=== PATIENT | female | born 1945 | race Caucasian/White ===

== ENCOUNTER → 2019-11-12 09:01 | Outpatient (CLI) | payer OTHER, SELFPAY ==
--- NOTE | ~2019-11-12 | US_ITS ---
EXAMINATION: US transvaginal DATE: 11/12/2019 09:51 INDICATION: Postmenopausal bleeding. Spotting. Comparison:No prior studies for comparison TECHNIQUE: Multiple endovaginal sonographic images of the pelvis performed. FINDINGS: The uterus measures 7.6 x 3 x 3.6 cm. The endometrial complex measures 4 mm. There are subt le calcifications along the cervix, nonspecific. The ovaries are not visualized. There is no free fluid in the pelvis. There are no abnormal masses seen on either side. IMPRESSION: 1. Endometrium is mildly thickened measuring 4 mm, abnormal in postmenopausal female. Nonspecific cer vical calcifications are noted. Recommend clinical correlation. Reviewed, dictated and finalized at location A. IMPRESSION: 1. Endometrium is mildly thickened measuring 4 mm, abnormal in postmenopausal f emale. Nonspecific cervical calcifications are noted. Recommend clinical correl ation.
== END ==
PROVIDERS: PCP Registered Nurse; Visit Provider Registered Nurse
DX: N95.0 Postmenopausal bleeding (principal)
CPT/HCPCS: 76830

== ENCOUNTER 2019-11-12 10:00 | Outpatient (RCR) | payer OTHER, SELFPAY ==
--- NOTE | 2019-10-08 10:27 | PTOPEVAL ---
PHYSICAL THERAPY EVALUATION AND PLAN OF CARE 10-08-2019 The PT evaluation was completed for the diagnosis of B LE lymphedema. Treatment is scheduled for 3x/week for 4 weeks. Thank you for referring Mrs. Wetzel to [facility] [place]. Please review, sign, date and return this plan of care ANNETTE. I agree with and certify that the following plan of care is medically necessary. Referring Physician Date Attending Provider: Albino Hardin MD *PT Outpatient Evaluation Start: 10/08/19 09:08 Document 10/08/19 09:00 ADEOLA (Rec: 10/08/19 10:27 ADEOLA [id number]) Therapy Assessment Status Assessment Status Assessment Status Evaluation Outpatient Past Medical History Neurological History Hx Neurological Disorders No Significant History Cardiovascular History Hx Atrial Fibrillation Yes: meds Hx Cardiac Catheterization Yes: recent cath Respiratory History Hx Sleep Apnea Yes: CPAP for sleeping Hx Other Respiratory Disorders Yes: SOB-with exertion Gastrointestinal History Hx Gastrointestinal Disorders No Significant History Genitourinary History Hx Genitourinary Disorders No Significant History Musculoskeletal History Hx Rheumatoid Arthritis Yes: 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;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 Hx Other Musculoskeletal Disorders Yes: B carpal tunnel surgery; obesity~330#,wt varies;30# incr past yr Hematological History Hx Hematological Disorders No Significant History Endocrine History Hx Endocrine Disorders No Significant History HEENT History Hx HEENT Disorders No Significant History Integumentary History Hx Skin Disorders No Significant History Reproductive History Hx Other Reproductive Disorders Yes: D & C Other History Hx Other Medical Conditions Yes: infected sweat glands- bottom feet,saw foot dr- treated last wk Evaluation Information Problem Diagnosis lymphedema B LE's Onset Jun 2019 Prior Level of Function Activity Level (Last 3 Months) Occupation retired Activity of Daily Living Ability Independent Indoor/Home Mobility Independent Community Mobility Independent Stairs Ability Independent Functional Cognition (Planning, Shopping Independent , Taking Medications) Cooking Yes Cleaning Yes Laundry Yes Shopping Yes Driving Yes Home Setting Home Type House Living Situation Alone Mobility Assistive Devices (Used Last 3 None,Cane Months) Comments Additional Prior Level of Function pt does drive and does
--- NOTE | 2019-10-13 10:59 | PCPTNOTE ---
Pt called left message to return call. Returned call, pt stated she is going to the pediatrist on and will need both feet unwrapped at the appt. Pt's appt was cancelled today and will start either Sunday or Sunday with wrapping depending on whether she can move her appt at the pediatrist to Sunday or early Sunday. Pt will call back and let us know.
--- NOTE | 2019-10-20 09:46 | PCPTNOTE ---
Malu explained today that she has has intermittent shooting pain in the bottom of the left foot since having a procedure at the rv technician last week. Pt called and made an appointment with rv technician at 10:50 today which would be during her treatment. Pt wanted to know if she should wait to have therapy so dr could look at her foot. Pt thinks she should have an x-ray. Explained that she would have to discuss the pain with her dr and we will hold of wrapping her right leg until she she him today. Pt has difficulty breathing and walking. I did not want to add an additional burden to her balance since wrapping her right leg would put more pressure on the left leg when walking. Pt brought in her old wraps and we went through and discussed what she needed to bring back with her at her next visit. Pt asked if she could keep her old wraps here and explained we do not have to storage capacity to do this. Walked Malu up to the front of the lobby caring her box of supples, at which time, the hospital volunteer had her help her out to her car with the supplies. Malu was instructed to call us and let us know what the doctors finding were.
--- NOTE | 2019-10-24 08:56 | PCPTNOTE ---
pt called and canceled today's appt; I called her, she stated having pain in her foot, has called foot dr and getting pain meds. Stated she has bone spurs. She stated she will hope to be here next week.
--- NOTE | 2019-10-29 09:56 | PCPTNOTE ---
Patient called & cancelled scheduled appointment this date due to [ weather]
--- NOTE | 2019-11-07 10:16 | PTOPEVAL ---
PHYSICAL THERAPY RE-EVALUATION AND UPDATED PLAN OF CARE 11-07-2019 Mrs. Wetzel has received 6 Physical Therapy sessions, from September 19 to today, for the diagnosis of B LE lymphedema. She called/canceled 7 appointments due to issues with her feet--under the care of therapy aide due to sweat glands infected on the bottom of her feet--pain and open areas of R foot. Her treatment has included multi layer compression wrap to R lower leg, manual lymph drainage, intermittent compression pump and exercises to LE's. Recommendations for compression garments and education for lymphedema care were also provided to pt. Compared to the initial evaluation: circumferential measurement of both legs have increased, R LE by 7.4 cm and L by 3.7 cm. Both legs continue to have redness and fibrotic tissue over lower legs and medial thighs. The compression wrap has decreased the lower leg size on the R, but pushed the lymph fluid to her knee and thigh. She continues to have decreased strength, transfer skill, knee ROM and gait ability due to the size of her legs. She has been issued information on compression garments for knees and thighs. Leigha is balking at them, for the cost, bulkiness and having to mess with the things. Education has been provided on the importance of compression, need for garment over knee and thigh, not just lower leg. Also for her to continue to do her self massage at home and using her home compression pump over the leg that does not have the wrap on it. PT is to continue 3x/week for 4 more weeks, to December 04, then reassess her status. Thank you for referring Mrs. Wetzel to [facility] [place]. Please review, sign, date and return this plan of care ANNETTE. I agree with and certify that the following plan of care is medically necessary. Referring Physician Date Attending Provider: Albino Hardin MD *PT Outpatient Re-Evaluation Document 11/07/19 09:00 ADEOLA (Rec: 11/07/19 10:00 ADEOLA [id number]) Pain Assessment Timing of Pain Assessment Timing of Pain Assessment Assessment Pain Scale Pain Scale Used Numeric (1 - 10) Self Report Pain Assessment Bilateral Leg(s) Reported Pain Level 6 Pain Description Sharp,Stabbing,Tender on Palpation,Tightness Radicular Pain Location bottom of feet- infected sweat glands , L foot more pain than R foot Pain Frequency Chronic Current Pain Intensity 6 Additional Pain Comments B legs heavy, swollen and problems moving them Pain Score Pain Score 6: Self Report Lower Extremity Range of Motion General Lower Extremity Range of Motion Gross Lower Extremity Range of Motion B knee flexion 90'/ ext 0'; Comments labored with moving legs Lower Extremity Muscle Strength Testing General Lower Extremity Strength Gross Lower Extremity Strength difficulty, labored and increased time with walking using cane, transfer supine/ sit; SOB with walking and transfers/ exertion; Lymphedema Evaluation Skin Inspectio
--- NOTE | 2019-11-14 11:07 | PCPTNOTE ---
PHYSICAL THERAPY UPDATE/ HOLD THERAPY 11-14-2019 Attending Provider: Marisela Alan NP Patient:Leigha Wetzel Date of :1945 Mrs. Wetzel has received a total of 9 Physical Therapy treatment sessions, from October 27 to today, for B LE lymphedema. She has received manual lymph drainage, intermittent compression pump, multi layer compression wraps to the R leg and education for lymphedema care. The circumferential measurements of her R leg, which the wraps have been initiated on, has increased in size from the first measurement to today by 45 cm. The expectation of our lymphedema care, is for the leg to decrease in circumference with each measurement, which has not occured. This was discussed with Leigha. We will hold her PT treatments until she follows up with an assessment from you. She also stated she has a compliance manager appointment November 25. After your evaluation of her, if PT is to continue for lymphedema care, please give her a new script. Thank you for referring Mrs. Wetzel to [facility]. Please review, sign, date and return this update/HOLD of PT services, ANNETTE. I have been updated about the patient's current status and I agree with holding services at this time. Referring Physician Date
--- NOTE | 2019-11-19 07:50 | PCPTNOTE ---
Pt Devora called pt to see if she had gotten to see the dr. lorenzo . Pt stated she had not and was going on Sunday. cancelled todays and Sunday's appt.
--- NOTE | 2019-12-09 11:46 | PCPTNOTE ---
PHYSICAL THERAPY DISCHARGE 12-09-2019 Attending Provider: Marisela Alan NP Patient:Leigha Wetzel Date of :1945 Mrs. Wetzel has not returned for any further treatments since 11/12/2019, therefore she will be discharged at this time. Her initial visit was on 10/08/2019 09:00 and she had a total of 9 visits. Refer to the progress report dated 11-14-19 for her status at the last session. The goals were not met. Thank you for referring Leigha to [facility]. Please review, sign, date and return this discharge summary ANNETTE. I have been updated about the patient's current status and I agree with discharge from the above service at this time. Referring Physician Date
== END 2019-12-23 09:35 | disposition home or self-care (01) ==
LOC: ANHPT 10:00
PROVIDERS: PCP Registered Nurse; Visit Provider Registered Nurse
DX: I89.0 Lymphedema, not elsewhere classified (principal)
CPT/HCPCS: 29581; 97110; 97140; 97162

== ENCOUNTER 2020-03-01 09:00 | Outpatient (RCR) | payer OTHER, SELFPAY ==
--- NOTE | 2020-03-01 10:24 | PTOPEVAL ---
PHYSICAL THERAPY EVALUATION AND PLAN OF TREATMENTS 03-01-2020 The PT evaluation was completed for the diagnosis of B LE lymphedema. Her plan of treatment is scheduled for 0-3x/week for 6 weeks; treatment will increase to 3x/week when she has obtained her compression reduction garments. Thank you for referring Leigha Wetzel to [facility]. Please review, sign, date and return this plan of care ANNETTE. I agree with and certify that the following plan of care is medically necessary. Referring Physician Date Attending Provider: KENYA WelchPT Outpatient Evaluation Start: 03/01/20 09:12 Document 03/01/20 09:10 ADEOLA (Rec: 03/01/20 10:24 ADEOLA [id number]) Therapy Assessment Status Assessment Status Assessment Status Evaluation Outpatient Past Medical History Past Medical History Source of Past Medical History Patient Neurological History Hx Neurological Disorders No Significant History Cardiovascular History Hx Atrial Fibrillation Yes: meds Hx Cardiac Catheterization Yes Hx Other Cardiac Disorders Yes: to have ECHO and cardologist March 12 appt Respiratory History Hx Sleep Apnea Yes: CPAP for sleeping Hx Other Respiratory Disorders Yes: SOB-with exertion; lung vessels enlarged Gastrointestinal History Hx Gastrointestinal Disorders No Significant History Genitourinary History Hx Genitourinary Disorders No Significant History Musculoskeletal History Hx Rheumatoid Arthritis Yes: 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;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 Hx Other Musculoskeletal Disorders Yes: B carpal tunnel surgery; obesity; Hematological History Hx Hematological Disorders No Significant History Endocrine History Hx Endocrine Disorders No Significant History HEENT History Hx HEENT Disorders No Significant History Integumentary History Hx Skin Disorders No Significant History Reproductive History Hx Other Reproductive Disorders Yes: D & C Other History Hx Other Medical Conditions Yes: infected sweat glands- bottom feet,see foot dr today Evaluation Information Problem Diagnosis lymphedema B LE's Onset Jun 2019 Prior Level of Function Activity Level (Last 3 Months) Occupation retired Activity of Daily Living Ability Independent Indoor/Home Mobility Independent Community Mobility Independent Stairs Ability Independent Functional Cognition (Planning, Shopping Independent , Taking Medications) Cooking Yes Cleaning Yes Laundry Yes Shopping Yes Driving Yes Home Setting Home Type
--- NOTE | 2020-03-01 16:07 | PCPTNOTE ---
pt called this afternoon and stated foot cut her sweat glands and wrapped her foot and has to keep wrapped for the next 2 weeks.
--- NOTE | 2020-04-19 13:06 | PCPTNOTE ---
pt called and canceled today's reevaluation appt
--- NOTE | 2020-04-30 09:30 | PCPTNOTE ---
PHYSICAL THERAPY DISCHARGE 04-30-2020 Attending Provider: Marisela Alan NP Patient:Leigha Wetzel Date of :1945 Mrs. Wetzel has not returned for any further treatments since the inital evaluation on 03/01/2020, Shortly after the evaluation, she was admitted to the hospital. Therefore, she will be discharged at this time. Thank you for referring Leigha to [facility]. Please review, sign, date and return this discharge summary ANNETTE. I have been updated about the patient's current status and I agree with discharge from the above service at this time. Referring Physician Date
== END 2020-04-30 11:33 | disposition home or self-care (01) ==
LOC: ANHPT 09:00
PROVIDERS: Visit Provider Registered Nurse
DX: I89.0 Lymphedema, not elsewhere classified (principal)
CPT/HCPCS: 97161

== ENCOUNTER 2020-03-12 11:32 | Outpatient (CLI) | payer OTHER, SELFPAY ==
--- NOTE | 2020-03-12 | ECG_ITS ---
Measurements Intervals [place] Rate: 74 P: [place]: 0 QRS: -10 QRSD: 105 T: 51 QT: 391 QTc: 436 Interpretive Statements ATRIAL FIBRILLATION INCOMPLETE RIGHT BUNDLE BRANCH BLOCK ABNORMAL ECG Electronically Signed On 03-12-2020 12:57:35 CDT by Rian Soliz D.O.
--- NOTE | 2020-03-12 | ECHO_ITS ---
Patient Info Name: Leigha Wetzel Age: 74 years : 1945 Gender: Female Ht: 66 in Wt: 340 lbs BSA: 2.78 m2 HR: 72 bpm BP: 130 / 72 mmHg Heart Rhythm: Atrial Fibrillation Technical Quality: Fair Exam Date: 03/12/2020 2:25 PM Exam Location: [facility] Card Pulmonary Patient Status: Outpatient Admit Date: 03/12/2020 Staff Ordering Physician: Dayanna, Marisela ZAMBRANO Gas Regulator Repairer: Gissel Lria RDCS Attending Provider: MorganMarisela NP Exam Type: CA echo doppler color flow Study Info Indications I48.20 - CHRONIC ATRIAL FIBRILLATION R60.0 - Localized edema Complete two-dimensional, color flow and Doppler transthoracic echocardiogram is performed. Summary 1. There is moderate concentric increased left ventricular wall thickness. 2. Left ventricular systolic function is normal, estimated at 55-60%. 3. Severe biatrial dilation. 4. Atrial fibrillation. 5. At least moderate pulmonary hypertension. 6. There is severe aortic valve stenosis with a peak velocity of 413 cm/s, mean gradient of 30 mmHg, and aortic valve area of 0.8 cm2. Left Ventricle Left ventricular chamber dimension is mildly enlarged. Left ventricular systolic function is normal, estimated at 55-60%. There is moderate concentric increased left ventricular wall thickness. Right Ventricle Right ventricular chamber dimension is normal. Left Atria Left atrial chamber dimension is moderately enlarged. Right Atria Right atrial chamber dimension is severely enlarged. Aortic Valve The aortic valve is trileaflet. There is severe aortic valve sclerosis. There is severe aortic valve stenosis with a peak velocity of 413 cm/s, mean gradient of 30 mmHg, and aortic valve area of 0.8 cm2. There is no aortic valve regurgitation. Pulmonic Valve The pulmonic valve is not well visualized. Mitral Valve The mitral valve has normal leaflets. There is trace mitral valve regurgitation. There is mild mitral valve calcification. Tricuspid Valve The tricuspid valve leaflets are normal. There is mild tricuspid valve regurgitation. Pericardium/Pleural The pericardium appears normal. Aorta The aortic root size at the sinus of Valsalva is normal. Left Ventricular Outflow Tract Name Value Normal LVOT 2D LVOT Diameter 2.1 cm LVOT Doppler LVOT Peak Gradient 5 mmHg LVOT Mean Gradient 3 mmHg LVOT VTI 27 cm LVOT VTI/AV VTI Ratio 0.3 LVOT Stroke Volume 96 ml LVOT CO 18.2 l/min LVOT CI 6.5 l/min/m2 Pulmonic Valve Name Value Normal PV Doppler PV Peak Gradient 3 mmHg Mitral Valve Name
== END 2020-03-12 11:33 | disposition home or self-care (01) ==
PROVIDERS: Visit Provider Registered Nurse
DX: R60.0 Localized edema (principal); I48.20 Chronic atrial fibrillation, unspecified
CPT/HCPCS: 93005; 93306

== ENCOUNTER 2020-04-16 11:15 | Inpatient (IN) | payer OTHER, SELFPAY ==
[2020-04-16] VITALS (19 sets, daily range): BP systolic 99–120; BP diastolic 52–74; PULSE 73–103; RESP 20–28; TEMP 36.6–37.5; O2SAT 89–100; BMI 56.2
--- NOTE | ~2020-04-16 | CT_ITS ---
EXAMINATION: CT foot RT wo con DATE: 04/21/2020 18:57 INDICATION: Lateral right foot pain. TECHNIQUE: High resolution computed tomography (CT) of the right foot was performed without intraveno us contrast. Additional sagittal and coronal reconstructions were performed. Automated exposure contr ol and iterative reconstruction technique were employed. The dose-length product was 485.57 mGy-cm. COMPARISON: Right foot radiographs dated 04/21/2020 FINDINGS: Again seen are clustered toes. Alignment is otherwise normal. No fracture. Polyarticular osteoarthrit is, moderate at the subtalar and talonavicular joints and mild at the remaining joints in the right f oot and ankle. Heterotopic ossicles along distal margins of the medial and lateral malleoli likely se quela of chronic ankle sprains. Marked diffuse soft tissue swelling with subcutaneous edema throughou t the right foot exiting cephalad about the distal right lower leg. Postoperative changes with multip le surgical clips along the medial side of the distal right calf. There are also multiple vascular ca lcifications in the distal calf. No joint effusion or other abnormal loculated fluid collections. Mod erate fatty atrophy throughout the intrinsic musculature of the foot. Moderate Achilles and plantar c alcaneal spurs. IMPRESSION: 1. Mild to moderate polyarticular osteoarthritis at the right foot and ankle. No acute osseous abnorm ality. 2. Soft tissue swelling with prominent nonspecific subcutaneous edema throughout the right foot and d istal lower leg. Reviewed, dictated and finalized at location A. IMPRESSION: 1. Mild to moderate polyarticular osteoarthritis at the right foot and ankle. N o acute osseous abnormality. 2. Soft tissue swelling with prominent nonspecific subcutaneous edema throughou t the right foot and distal lower leg.
--- NOTE | ~2020-04-16 | XR_ITS ---
EXAMINATION: XR foot RT 2V DATE: 04/16/2020 12:12 INDICATION: Right foot pain and swelling. TECHNIQUE: 2 views of right foot were obtained. COMPARISON: None. FINDINGS: There is dorsiflexion of the metatarsophalangeal joints and flexion of the interphalangeal joints, which decreases sensitivity. Osteopenia is noted. No fracture. There is moderate osteoarthrit is of talonavicular joint. There is mild to moderate osteoarthritis of many of the interphalangeal lico ints. There is an enthesophyte at plantar aspect of calcaneal tuberosity. There are surgical clips in the lower leg. IMPRESSION: 1. Polyarticular osteoarthritis. Reviewed, dictated and finalized at location B.
--- NOTE | ~2020-04-16 | XR_ITS ---
EXAMINATION: XR foot RT 2V EXAM DATE: 04/21/2020 15:28 INDICATION: Initial encounter following injury, with pain of the right foot. TECHNIQUE: Right foot dorsoplantar, lateral projections obtained and reviewed. Comparison is made to prior examination from 04/16/2020. FINDINGS: Right metatarsal bones unremarkable. Bones are osteopenic. Please note that osteopenia l imits sensitivity for detecting fractures by radiographs. There are no acute fractures or dislocation s identified. There is no subcutaneous gas. There is soft tissue swelling over the entire foot and a nkle. There are no radiopaque foreign bodies. Moderate hindfoot primary osteoarthritis. Small calc aneal spurs. There is no significant interval change. IMPRESSION: Chronic findings as above. Reviewed, dictated and finalized at location B. IMPRESSION: Chronic findings as above.
--- NOTE | ~2020-04-16 | XR_ITS ---
XR chest 1V portable DATE: 04/16/2020 12:11 INDICATION: Shortness of breath TECHNIQUE: Portable upright AP chest on 04/16/2020 at 1200 hours COMPARISON: 01/02/2019 CT chest high resolution scan FINDINGS: There is cardiomegaly. There is pulmonary vascular congestion and redistribution. There is mild prominence of the minor fissure. The findings are consistent with congestive heart failure. Diffuse osteopenia. IMPRESSION: Cardiomegaly, congestive heart failure Reviewed, dictated and finalized at location A.
--- NOTE | 2020-04-16 11:20 | ECG_ITS ---
Measurements Intervals [place] Rate: 100 P: [place]: 0 QRS: -40 QRSD: 101 T: 34 QT: 347 QTc: 449 Interpretive Statements ATRIAL FIBRILLATION WITH RAPID VENTRICULAR RESPONSE LEFT AXIS DEVIATION INCOMPLETE RIGHT BUNDLE BRANCH BLOCK BASELINE ARTIFACT- I, III, AVR, AVL, AVF ABNORMAL ECG Electronically Signed On 04-16-2020 11:29:36 CDT by Rian Soliz D.O.
[2020-04-16 11:33] LABS: Basophils Absolute Auto 0.1 K/mm3 (0.0-0.1); Basophils Percent Auto 0.3 % (0.2-1.2); Eosinophils Absolute Auto 0.1 K/mm3 (0-0.3); Eosinophils Percent Auto 0.3 % (0-4.4); Hematocrit 23.2 % (37.0-47.0); Immature Granulocyte Absolute 0.67 K/mm3 (0.00-0.031); Immature Granulocyte Percent A 2.6 % (0-0.5); Lymphocytes Absolute Auto 0.36 K/mm3 (0.9-3.2); Lymphocytes Percent Auto 1.4 % (18.3-44.2); Mean Corpuscular HGB Conc 29.7 g/dl (32-36); Mean Corpuscular Hemoglobin 20.9 pg (26-34); Mean Corpuscular Volume 70.3 fl (80-100); Monocytes Absolute Auto 1.1 K/mm3 (0.1-0.6); Monocytes Percent Auto 4.4 % (2.6-8.5); Neutrophils Absolute Auto 23.6 K/mm3 (1.3-6.7); Platelet Count Result 240 k/mm3 (150-375); Red Cell Distribution Width 17.7 % (11.5-14.5); White Blood Count 25.9 K/mm3 (4.5-10.0)
--- NOTE | 2020-04-16 11:45 | PC.NURSE ---
PT NOTED TO BE 88-90% O2 ON RA, PLACED ON 2L VIA NC FOR O2 SATURATION. ERP AWARE.
[2020-04-16 11:46] LABS: Anion Gap 8 mmol/L (8-16); Blood Urea Nitrogen 33 mg/dL (7-17); Calcium 8.5 mg/dL (8.4-10.2); Carbon Dioxide 22 mmol/L (22-30); Chloride 105 mmol/L (98-107); Estimated CRCL calculation 63 ml/min; Estimated Glomerular Filt Rate 49; Glucose 128 mg/dL (65-105); Potassium 4.2 mmol/L (3.4-5.0); Sodium 135 mmol/L (137-145)
[2020-04-16 11:50] LABS: Hemoglobin 6.9 g/dL (12.0-15.0)
[2020-04-16 11:51] LABS: Anisocytosis 1+ (NORMAL); Hypochromasia 2+ (NORMAL); Platelet Estimate Adequate (Adequate)
--- NOTE | 2020-04-16 12:21 | ED.SOB ---
HPI - SOB/Dyspnea General Chief Complaint: Shortness of Breath/Dyspnea Stated Complaint: SOB Time Seen by Provider: 04/16/20 11:46 History of Present Illness HPI Narrative: Patient presents via EMS for shortness of breath. She is accompanied by her daughter. She lives alone. 2 days ago her daughter came and found her laying on the floor. They called for a fall assist. Had been on the floor since about midnight. She has about a 30 pound weight gain with her lymphedema. She has right foot pain and swelling without known injury. She has a chronic cough, with clear sputum. She has had no fever chills or sweats. She has chronic A. fib and Dr. Anthony is her electro mechanical technician. She has compression stockings for her lymphedema. MD elicited complaint: shortness of breath and cough Pertinent past history: congestive heart failure and other (Pulmonary hypertension, aortic stenosis) Onset (ago): day(s) Timing: constant Severity: severe Exacerbating factors: exertion Relieving factors: nothing Known history of: congestive heart failure and recurrent pneumonia Associated symptoms: cough and sputum production Treatment prior to arrival: oxygen Related Data Home oxygen amount: none Home Medications Medication Instructions Recorded Confirmed albuterol sulfate 90 mcg/actuation 2 puff INHALATION Q4H PRN gm 08/12/19 02/18/20 aerosol inhaler alpha lipoic acid 300 mg capsule 300 mg PO DAILY 08/12/19 02/18/20 aspirin 81 mg tablet,delayed 81 mg PO DAILY 08/12/19 02/18/20 release calcium carbonate 500 mg calcium 500 mg PO DAILY 08/12/19 02/18/20 (1,250 mg) tablet cholecalciferol (vitamin D3) 50 2,000 unit PO DAILY 08/12/19 02/18/20 mcg (2,000 unit) tablet coenzyme Q10 400 mg capsule 400 mg PO DAILY 08/12/19 02/18/20 cyanocobalamin (vitamin B-12) 500 500 mcg PO DAILY 08/12/19 02/18/20 mcg tablet meloxicam 7.5 mg tablet 7.5 mg PO DAILY 08/12/19 02/18/20 metoprolol tartrate 25 mg tablet 25 mg PO BID tablet 08/12/19 02/18/20 oxybutynin chloride 10 mg 10 mg PO DAILY 12/10/19 06/17/20 tablet,extended release 24 hr warfarin 2 mg tablet See Rx Instructions PO DAILY 08/12/19 02/18/20 budesonide-formoterol HFA 160 2 puff INHALATION Q12H 02/18/20 02/18/20 mcg-4.5 mcg/actuation aerosol inhaler Allergies Allergy/AdvReac Type Severity Reaction Status Date / Time hydromorphone Allergy Unknown Unknown Verified 04/16/20 11:23 meperidine Allergy Unknown DIZZINESS, Verified 04/16/20 11:23 N/V Review of Systems Review of Systems: Narrative: CONSTITUTIONAL: Denies fever, chills, or sweats. EYES: Denies visual changes, redness, or discharge. ENT: Denies rhinorrhea, congestion, sore throat, or otalgia. CARDIOVASCULAR: Denies chest pain, palpitations, or edema. RESPIRATORY: She has cough and dyspnea. GASTROINTESTINAL: Denies abdominal pain, nausea, vomiting, or diarrhea. GENITOURINARY: Denies dysuria or hematuria. SKIN: Denies rash or itching. MUSCULOSKELETAL: Denies back pain, but has severe right foot pain and swelling and redness. NEUROLOGIC: Denies headache, numbness, or weakness. . All systems reviewed & are unremarkable except as noted in HPI and below PMFSH Past Medical History Medical History A-fib JAQUELINE positive (~2018) Aortic stenosis Arthritis DISH (diffuse idiopathic skeletal hyperostosis) Lymphedema NSIP (nonspecific interstitial pneumonia) Pulmonary hypertension Surgical History Surgical History H/O hand surgery H/O wrist surgery Social History Social History Smoking status: Never smoker Second hand tobacco smoke exposure: No Alcohol intake: never Substance use: never Substance use type: does not use Spiritual care concerns: No Exam Narrative: Exam Narrative: GENERAL: Morbid obesity and huge lymphedema, pale, coughing HEAD: Normocephalic
[2020-04-16 12:33] LABS: Alanine Aminotransferase 39 U/L (4-35); Albumin Level 3.5 g/dL (3.5-5.1); Alkaline Phosphatase 73 U/L (38-126); Anion Gap 8 mmol/L (8-16); Aspartate Amino Transferase 88 U/L (14-36); Bilirubin,Total 0.6 mg/dL (0.2-1.3); Blood Urea Nitrogen 34 mg/dL (7-17); Calcium 8.5 mg/dL (8.4-10.2); Carbon Dioxide 22 mmol/L (22-30); Chloride 104 mmol/L (98-107); Creatine Kinase 1560 U/L (30-135); Estimated CRCL calculation 69 ml/min; Estimated Glomerular Filt Rate 54; Glucose 131 mg/dL (65-105); Potassium 4.1 mmol/L (3.4-5.0); Sodium 134 mmol/L (137-145)
[2020-04-16 12:49] LABS: NT Pro B Type Natriuretic Pept 5590 PG/ML (5-100); Troponin I 0.857 ng/mL (0.000-0.034)
[2020-04-16 12:59] LABS: Lactic Acid Reflex 1.4 mmol/L (0.7-2.1)
[2020-04-16 13:03] LABS: Immature Reticulocyte Fraction 22.1 % (3.0-15.9); Reticulocyte Hemoglobin Conten 18.7 pg (28.2-35.7); Reticulocyte Percent 1.15 % (0.7-4.3); Reticulocytes Absolute 0.04 B/L (32.2-175.7)
[2020-04-16 13:13] LABS: INR 3.6; Prothrombin Time 35.4 Seconds (11.1-14.7)
--- NOTE | 2020-04-16 13:58 | PC.NURSE ---
Received patient from ED, lungs are coarse with wheezes. 2L O2 nasal cannula.
--- NOTE | 2020-04-16 14:20 | ADMGEN ---
This patient, Leigha Wetzel, was admitted to IMU Room 207-01. Patient/family oriented to hospital policies and general routines including ID bracelet, bed and alarms, visiting hours, pain management, procedures, bathroom and other care routines, personal items, smoking policy, room service/diet, and visiting hours. Valuables list has been completed. Information on how to activate the Rapid Response Team has been discussed. Patient/Family are encouraged to report perceived risks to care and to ask questions if they do not understand what they are told or what they should do.
[2020-04-16] MEDS: FUROSEMIDE INJ 40 MG/4 ML VIAL 20 MG IV PUSH (14:43)
[2020-04-16 15:00] LABS: Hematocrit 21.7 % (37.0-47.0)
[2020-04-16 15:04] LABS: Hemoglobin 6.5 g/dL (12.0-15.0)
[2020-04-16] MEDS: SODIUM CHLORIDE 0.9% IV 250 ML 30 ML IV CONT (15:20)
[2020-04-16] MEDS: TUBING, BLOOD PLUM PUMP TUBING 1 EACH XX (15:21)
[2020-04-16 15:23] LABS: Troponin I 0.879 ng/mL (0.000-0.034)
--- NOTE | 2020-04-16 16:39 | PM.CNCAR ---
Assessment and Plan Additional Plan 74-year-old lady with atrial fibrillation and aortic valve stenosis. The echocardiogram 1 month ago as detailed above indicated that the aortic valve area appears to be severe but once again I would point out that we had and similar reading last summer which was not found to be accurate when the patient was brought to the cardiac catheterization lab. The current issue obviously is more the patient's fall, large hematoma with hemorrhage into the hematoma and significant drop in her hemoglobin. At this point the obvious recommendation is to discontinue warfarin and transfuse packed red blood cell volume. When this acute illness is resolved I will consider performing a transesophageal echo to directly visualize the valve optimally and determine if there has been significant progression in her aortic stenosis. Since she had a normal coronary angiogram less than 1 year ago I do not believe another trip to the cardiac catheterization lab is necessary or of any great Votator Machine Operator in evaluating this. Albino Anthony MD [facility] History of Present Illness History of Present Illness Consult date/time: 04/16/20 16:39 Reason For Visit: anemia,hypoxia,ch,aortic stenosis Narrative: This is a 74-year-old woman that I am seeing at the request of the hospitalist who presented to the hospital earlier today with shortness of breath and falling that occurred while she was at home. This is a lady who has chronic atrial fibrillation and aortic stenosis that I began to see in April of 2019 after she low removed to this area from the [place] area. She is also morbidly obese and has the diagnosis of chronic lymphedema. The patient had complaints of shortness of breath with activity and at that time had an echocardiogram which suggested significant aortic valve stenosis with a calculated valve area of 0.9 cm2. Because because of this when I saw her and recommended arranging for right left heart catheterization for further evaluation of this. This exam was done on May 07, 2019. The study demonstrated angiographically non diseased coronary arteries and preserved left ventricular systolic function. She did have significant pulmonary hypertension and her aortic valve area when measured in the cath lab manager was mild at 1.4 cm2. For that reason we recommended conservative longitudinal follow-up of her aortic valve disease. The patient states she had a couple of falls recently who where she apparently slipped on chronic lymphedema pumps that she wears and fell to the floor couple of times. She was found in the emergency room to have a large hematoma in her buttocks and a significant drop in hemoglobin to 6.9 g draft for a little further to 6.5 g following admission. Transfusion of packed red cells has been I reported in the 1st unit is transfusing at the time of this interview. Because of her atrial fibrillation she is chronically on warfarin her INR on admission was 3.6. She is not reporting any orthopnea or PND the patient is obviously very limited and debilitated because of her obesity and severe chronic edema. In this setting I am seeing her in consultation. Interestingly she had an echocardiogram done last month which was ordered by her PCP which suggested that her aortic valve stenosis is more severe at will 0.8 cm2. One must remember however that the transthoracic echo as I detailed above was not accurately food products sales representative of her aortic valve area last summer. Review of Systems Constitutional: Constitutional: Reports fatigue and Reports weakness Eyes: Eyes: Reports no additional eye complaints ENT: Reports system reviewed and no additional complaints, except as documented Cardiovascular: Cardiovascular: Reports no additional cardiovascular complaints Respiratory: Respiratory: Reports no additional respiratory complaints Gastrointestinal: Gastrointestinal: Reports no additional gastrointestinal complaints Musculoskeletal: Muscul
--- NOTE | 2020-04-16 17:59 | PM.IMHP ---
H&P: HPI History of Present Illness Date/Time: 04/16/20 17:59 Chief complaint: anemia,hypoxia,ch,aortic stenosis Narrative: Leigha Wetzel is a 74 year old female Was a history of having aortic valve stenosis. she was seen by Dr. Anhtony approximately 1 year ago with a echocardiogram. Then she had a repeat echocardiogram which appears to be more severe. The patient came to the emergency room with complaints of shortness of breath. She was accompanied by her daughter Yudelka who is also her durable power tax associate attorney for healthcare. The patient lives home alone. Two days ago her daughter came over and found her on the floor. The patient had been on the floor since about midnight that night. The patient again fell today. The daughter stated that the patient has about a 30 lb weight gain with her lymphedema. The patient fell this morning because she has her lymphedema wraps and air boots /Compression device on and try to get up those on his slid on the floor. she has been complaining of having chills but no fever. Patient H&H is noted to be 6.9 and 23.2 was redrawn and it was 6.5 and 21.7. Her daughter Yudelka told me that she had her blood drawn at the doctor's office at 1 week ago and finally got her lab results back today and they were calling her to let her know to go to the hospital. The patient has a large hematoma on the on her back. She is currently getting 1 unit packed red blood cells. Dr. Anthony was consulted and has already seen the patient. She is on Coumadin for chronic AFib. Her BNP is 5590. Fall 3 cardiac enzymes are elevated 1st troponin 0.857, 3 hour was 0.879, last 1 was 0.899 which were pretty level. The patient is not have any any complaints of any chest pain. EKG was read as atrial fibrillation with rapid ventricular response of 100 incomplete right bundle-branch block. Foot x-ray was read as polyarticular osteoarthritis. Chest x-ray was read as cardiomegaly and congestive heart failure. blood cultures were obtained. Patient was given Zosyn and vancomycin for possible cellulitis. She was given IV Lasix. kidney functions were within normal limits. Patient's total CK was listed as 1560. No fluids were started due to the congestive changes on her chest x-ray. I spent approximately 1 hour with this patient date of service is 04/16/2020 Review of Systems Review of Systems: All systems reviewed & are unremarkable except as noted in HPI and below Constitutional: Constitutional: Reports as per HPI and Reports no additional constitutional complaints Eyes: Eyes: Reports as per HPI and Reports no additional eye complaints ENT: Reports system reviewed and no additional complaints, except as documented and Reports Normal hearing present Cardiovascular: Cardiovascular: Reports no additional cardiovascular complaints Respiratory: Respiratory: Reports no additional respiratory complaints and Reports no additional respiratory complaints Gastrointestinal: Gastrointestinal: Reports as per HPI and Reports no additional gastrointestinal complaints Musculoskeletal: Musculoskeletal: Reports no additional musculoskeletal complaints Integumentary/Breasts: Skin/Breast: Reports system reviewed and no additional complaints, except as docu and Reports as per HPI Neurologic: Reports system reviewed and no additional complaints, except as documented, Reports as per HPI and Reports Normal hearing present Psychiatric: Psychiatric: Reports no additional psychiatric complaints and Reports as per HPI Endocrine: Endocrine: Reports no additional endocrine complaints Hematologic/Lymphatic: Hematologic/Lymphatic: Reports no additional hematologic/lymphatic complaints Allergic/Immunologic: Allergic/Immunologic: Reports no additional allergic/immunologic complaints [facility] Past Medical History Medical History (Updated 04/16/20 @ 18:35 by Griselda Duffy NP) A-fib JAQUELINE positive (~2018) Aortic stenosis Arthritis DISH (diffuse idiopathic skele
[2020-04-16 18:10] LABS: Troponin I 0.899 ng/mL (0.000-0.034)
[2020-04-16] MEDS: ACETAMINOPHEN 325 MG TABLET 650 MG PO (18:15)
[2020-04-16 19:02] LABS: Hemoglobin 7.3 g/dL (12.0-15.0)
[2020-04-16 19:12] LABS: INR 3.2; Prothrombin Time 32.3 Seconds (11.1-14.7)
[2020-04-16 19:42] LABS: Creatine Kinase 1189 U/L (30-135)
[2020-04-16] MEDS: FAMOTIDINE 20 MG/2 ML VIAL IV PUSH (20:34)
[2020-04-16] MEDS: METOPROLOL TARTRATE 25 MG TABLET PO (20:34)
[2020-04-16 23:11] LABS: Hematocrit 25.4 % (37.0-47.0); Hemoglobin 7.7 g/dL (12.0-15.0)
[2020-04-17] VITALS (23 sets, daily range): BP systolic 93–116; BP diastolic 45–67; PULSE 67–92; RESP 18–24; TEMP 36.2–37.6; O2SAT 97–100
[2020-04-17 05:59] LABS: IFOB Positive Control Positive; Immunochemical Fecal Occult Bl Positive (N)
[2020-04-17] MEDS: ALBUTEROL SULFATE (*SP) AEROSOL 1 PUFF 2 PUFF INHALATION (09:04)
[2020-04-17] MEDS: FAMOTIDINE 20 MG/2 ML VIAL IV PUSH ×2 (09:44→20:25)
[2020-04-17] MEDS: CHOLECALCIFEROL 1,000 UNITS TABLET 2000 UNITS PO (09:44)
[2020-04-17] MEDS: CALCIUM CARBONATE (OSCAL) 500 MG TABLET PO (09:44)
[2020-04-17] MEDS: CYANOCOBALAMIN 500 MCG TABLET PO (09:44)
[2020-04-17] MEDS: FUROSEMIDE INJ 40 MG/4 ML VIAL IV PUSH (09:45)
[2020-04-17] MEDS: METOPROLOL TARTRATE 25 MG TABLET PO ×2 (09:45→20:25)
--- NOTE | 2020-04-17 10:24 | PM.PNCARD ---
Progress Note: A&P Additional Plan 74-year-old lady with: significant edema resulting from hematoma and fall while on Coumadin. Coumadin will be on hold for the for see above future. She could probably use at least 1 more unit of blood since her hemoglobin is 7.7 and she has shortness of breath and aortic valve disease. I would also administer intravenous furosemide. When the patient is clinically stable and no longer anemic I would probably plan on a transesophageal echocardiogram with anesthesia assistance to directly visualize and perform planimetry to assess her aortic valve area. This is not an urgent matter Albino Anthony MD [facility] Subjective Date/time seen: 04/17/20 10:24 Interval history: follow-up visit in this 74-year-old white female with: Chronic atrial fibrillation aortic valve stenosis of indeterminate severity. As I dictated in my consult note there have been discrepancies between echocardiographic findings and lab support tech findings in terms of the severity of her aortic valve disease. Morbid obesity chronic lymphedema fall at home with large hematoma resulted in significant anemia. Hemoglobin is better but still low at 7.7. Obviously anticoagulation with warfarin is on hold. Patient still has conversational dyspnea. Seems to be rather emotional wall about being in the hospital Exam Const: General: comfortable Other: obese 74-year-old lady who is reasonably comfortable but rather emotional and appears to be upset about being in the hospital HENMT: Mouth: Yes moist mucous membranes Eyes: Sclera: sclerae normal Pupils: Equal, round and reactive pupils present Neck: Neck: supple Thyroid: thyroid normal Other: cannot discern jugular venous distention given her body habitus Resp: Other: patient has diminished distant breath sounds bilaterally Cardio: Rhythm: abnormal rhythm irregularly irregular GI: Auscultation: normal bowel sounds Skin: General skin exam: normal color Neuro: Cognition (Neuro): normal cognition Extrem: Other: massive chronic edema Objective Data Vital Signs Vital Signs: Vital Signs - 24 hr 04/16/20 11:07 04/16/20 11:21 04/16/20 11:26 Temperature 36.6 C Pulse Rate 103 H 100 101 H Respiratory Rate 23 H 24 H Blood Pressure 99/70 L 99/70 L Pulse Oximetry 95 96 96 04/16/20 11:45 04/16/20 12:56 04/16/20 13:22 Temperature Pulse Rate 91 83 88 Respiratory Rate 24 H 20 24 H Blood Pressure 99/56 L 102/61 108/74 Pulse Oximetry 89 L 100 100 04/16/20 14:00 04/16/20 14:06 04/16/20 15:06 Temperature 37.2 C 36.8 C Pulse Rate 87 83 83 Respiratory Rate 28 H 28 H Blood Pressure 104/54 L 103/63 Pulse Oximetry 100 100 04/16/20 15:34 04/16/20 16:00 04/16/20 16:34 Temperature 36.8 C 36.9 C 36.9 C Pulse Rate 73 78 88 Respiratory Rate 28 H 26 H 26 H Blood Pressure 100/63 111/60 111/60 Pulse Oximetry 100 100 100 04/16/20 17:35 04/16/20 17:45 04/16/20 18:00 Temperature 37.2 C 37.5 C Pulse Rate 88 74 80 Respiratory Rate 20 20 Blood Pressure 107/52 L 120/62 Pulse Oximetry 100 100 04/16/20 18:15 04/16/20 20:00 04/16/20 20:34 Temperature 37.5 C 36.9 C Pulse Rate 92 91 Respiratory Rate 20 Blood Pressure 119/55 L Pulse Oximetry 99 04/16/20 22:00 04/17/20 00:00 04/17/20 02:00 Temperature 37.6 C H Pulse Rate 76 81 67 Respiratory Rate 22 H Blood Pressure 114/59 L Pulse Oximetry 100 04/17/20 04:00 04/17/20 06:00 04/17/20 08:00 Temperature 36.2 C L 37.1 C Pulse Rate 92 78 80 Respiratory Rate 24 H 20 Blood Pressure 113/45 L 110/61 Pulse Oximetry 100 99 04/17/20 09:04 04/17/20 09:45 Temperature Pulse Rate 80 Respiratory Rate Blood Pressure Pulse Oximetry 97 Intake/Output Intake/Output: Intake & Output 04/14/20 04/15/20 04/16/20 04/17/20 23:59 23:59 23:59 23:59 Intake Total 1040 740 Output Total 550 950 Balance 490 -210 Meds/Results Medications: Active Medic
[2020-04-17 10:25] LABS: Hematocrit 23.4 % (37.0-47.0)
[2020-04-17 10:56] LABS: Alanine Aminotransferase 38 U/L (4-35); Albumin Level 3.4 g/dL (3.5-5.1); Alkaline Phosphatase 88 U/L (38-126); Anion Gap 8 mmol/L (8-16); Aspartate Amino Transferase 68 U/L (14-36); Bilirubin,Total 0.8 mg/dL (0.2-1.3); Blood Urea Nitrogen 24 mg/dL (7-17); Calcium 8.2 mg/dL (8.4-10.2); Carbon Dioxide 23 mmol/L (22-30); Chloride 105 mmol/L (98-107); Estimated CRCL calculation 84 ml/min; Estimated Glomerular Filt Rate > 60; Glucose 124 mg/dL (65-105); Potassium 4.1 mmol/L (3.4-5.0); Sodium 136 mmol/L (137-145)
[2020-04-17 11:02] LABS: CRP 18.3 mg/dL (<1.0)
--- NOTE | 2020-04-17 12:21 | WPDGICN ---
Assessment and Plan Assessment and plan (1) Acute blood loss anemia: Code(s): D62 - Acute posthemorrhagic anemia Status: Acute Assessment and Plan: probably combination of anticoagulation with prolonged INR and recent hematoma in back. Patient denies GIB, she had unremarkable colonoscopy 2 years ago hold coumadin and follow cardiology recommendations no need to proceed with endoscopic intervention unless obvious GIB (2) Hematoma and contusion: Code(s): T14.8XXA - Other injury of unspecified body region, initial encounter Status: Acute Assessment and Plan: recent fall in setting on coumadin use (3) Lymphedema: Code(s): I89.0 - Lymphedema, not elsewhere classified Status: Chronic (4) Warfarin anticoagulation: Code(s): Z79.01 - terminal system operator (current) use of anticoagulants Status: Acute (5) Rhabdomyolysis: Qualifiers: Rhabdomyolysis type: non-traumatic Qualified Code(s): M62.82 - Rhabdomyolysis Code(s): M62.82 - Rhabdomyolysis Status: Acute Assessment and Plan: from recent fall, by primary team (6) Pulmonary artery hypertension: Code(s): I27.21 - Secondary pulmonary arterial hypertension Status: Acute (7) A-fib: Code(s): I48.91 - Unspecified atrial fibrillation Status: Chronic Assessment and Plan: seen by cardiology GI Consult Note Consult date/time: 04/17/20 12:21 Reason for consult: acute blood loss anemia HPI: Leigha Wetzel is a 74 year old female with history of chronic atrial fibrillation and aortic stenosis on coumadin, morbidly obese and chronic lymphedema. She had a couple of falls recently after she slipped at home because legs gave up after using compression device for her lymphedema. In the emergency room she had hb 6.9 and inr 3.6, also noted large hematoma in her buttocks. She received blood transfusion and coumadin was discontinued. She had a colonoscopy [address] Cueto that showed diverticulosis and small polyp removed. Daughter is here. She denies melena or blood in stools. She already received blood tranfusions. No abdominal pain or nausea. Review of Systems Constitutional: Constitutional: Reports fatigue Eyes: Eyes: Denies blurry vision ENT: Denies dysphagia Cardiovascular: Cardiovascular: Denies chest pain Respiratory: Respiratory: Denies cough Gastrointestinal: Gastrointestinal: Denies abdominal pain and Denies nausea Musculoskeletal: Musculoskeletal: Reports back pain Comments: recent fall Integumentary/Breasts: Comments: hematoma in back Neurologic: Denies headache(s) Psychiatric: Psychiatric: Denies behavioral changes [facility] Past Medical History Medical History (Updated 04/17/20 @ 12:30 by Michael Toribio MD) A-fib Acute blood loss anemia JAQUELINE positive (~2018) Aortic stenosis Arthritis DISH (diffuse idiopathic skeletal hyperostosis) Hematoma and contusion Lymphedema NSIP (nonspecific interstitial pneumonia) Pulmonary hypertension seen by Dr. Arevalo is office Warfarin anticoagulation Surgical History Surgical History (Updated 04/16/20 @ 18:24 by Griselda Duffy NP) H/O hand surgery H/O rectal polypectomy H/O wrist surgery Family History Family History (Updated 04/16/20 @ 18:26 by Griselda uDffy NP) Mother Cerebrovascular accident, Onset Age: 89 Heart disease Father Patient's father is , Onset Age: 80 Sibling Diabetes mellitus Social History Social History Smoking status: Never smoker Second hand tobacco smoke exposure: No Alcohol intake: never Substance use: never Substance use type: does not use Spiritual care concerns: No Meds Home Medications and Allergies Home Medications Medication Instructions Recorded Confirmed Type albuterol sulfate 90 mcg/actuation 2 puff INHALATION Q4H PRN gm 08/12/19 04/16/20 His
--- NOTE | 2020-04-17 16:19 | PM.IMPN ---
Progress Note: A&P Assessment and Plan (1) Anemia: Code(s): D64.9 - Anemia, unspecified Status: Acute Assessment and Plan: . Patient has a large hematoma on her back. which appears to be the source of the acute blood loss. No evidence of a GI bleeding at this time and has been seen by Gastroenterology holding aspirin and warfarin. If hemoglobin continues to fall then will reverse warfarin with FFP and/or vitamin K (2) Aortic stenosis: Qualifiers: Cardiac valve disease etiology: etiology unspecified Qualified Code(s): I35.0 - Nonrheumatic aortic (valve) stenosis Code(s): I35.0 - Nonrheumatic aortic (valve) stenosis Status: Acute Assessment and Plan: Seen by Dr. Anthony. According to Raj is notes the patient had a cardiac catheterization last year and no ischemia with mildly elevated troponin at this time. Possible DAO in the future to reassess valve (3) Pulmonary hypertension: Code(s): I27.20 - Pulmonary hypertension, unspecified Status: Chronic Assessment and Plan: She is seen by Dr. yusuf and continue with her inhalers. (4) Elevated troponin: Code(s): R79.89 - Other specified abnormal findings of blood chemistry Status: Acute Assessment and Plan: They appeared to be on level. Cardiology is seeing. Most likely due to her fall. could be from the congestive heart failure. no ischemic episode or MO. (5) Rhabdomyolysis: Qualifiers: Rhabdomyolysis type: non-traumatic Qualified Code(s): M62.82 - Rhabdomyolysis Code(s): M62.82 - Rhabdomyolysis Status: Acute Assessment and Plan: CK already down to 1100 and will not hydrate further with her cardiac history with renal status remaining normal (6) ALISON (obstructive sleep apnea): Code(s): G47.33 - Obstructive sleep apnea (adult) (pediatric) Status: Chronic Assessment and Plan: continue with home BiPAP. (7) Lymphedema: Code(s): I89.0 - Lymphedema, not elsewhere classified Status: Chronic Assessment and Plan: Patient typically has compression stockings are a compression device that she uses at home. (8) A-fib: Code(s): I48.91 - Unspecified atrial fibrillation Status: Chronic Assessment and Plan: Chronic And constant. Her Coumadin is on hold at this time. Continue with metoprolol. (9) CHF (congestive heart failure): Qualifiers: Heart failure chronicity: unspecified Heart failure type: unspecified Qualified Code(s): I50.9 - Heart failure, unspecified Code(s): I50.9 - Heart failure, unspecified Status: Chronic Assessment and Plan: Continue with her metoprolol and she is on IV Lasix. heart failure secondary to valvular defect stand or diastolic (10) Cellulitis of foot: Code(s): L03.119 - Cellulitis of unspecified part of limb Status: Acute Assessment and Plan: patient was started on vancomycin and Zosyn. . The patient does not appear to have cellulitis please wean off if blood cultures are negative . changes all secondary to lymphedema and chronic venous stasis Subjective Date/time seen: 04/17/20 16:19 Interval history: date of visit 04/17 74-year-old female with chronic AFib aortic stenosis admitted with anemia secondary to hematoma after fall. No loss of consciousness but did encur some mild rhabdo. Still complains of some shortness of breath today Exam Narrative: Exam Narrative: blood pressure 100/56 pulse is 76 irregular sat 97% room air afebrile lungs clear CV systolic ejection murmur abdomen soft nontender obese hematoma on buttocks and lower back extremities lymphedema and daughter relates has gone down some neuro alert pleasant cooperative no focal deficits sitting up in bed playing cards with her daughter Objective Data Vital Signs Vital Signs: Vital Signs - 24 hr 04/16/20 16:3
[2020-04-18] VITALS (18 sets, daily range): BP systolic 104–117; BP diastolic 50–80; PULSE 56–113; RESP 18–22; TEMP 36.6–37; O2SAT 93–100
[2020-04-18] MEDS: ACETAMINOPHEN 325 MG TABLET 650 MG PO ×2 (05:33→15:09)
[2020-04-18 07:36] LABS: Basophils Absolute Auto 0.1 K/mm3 (0.0-0.1); Basophils Percent Auto 0.6 % (0.2-1.2); Eosinophils Absolute Auto 0.2 K/mm3 (0-0.3); Eosinophils Percent Auto 1.3 % (0-4.4); Hematocrit 27.5 % (37.0-47.0); Hemoglobin 8.2 g/dL (12.0-15.0); Immature Granulocyte Percent A 1.2 % (0-0.5); Lymphocytes Absolute Auto 0.77 K/mm3 (0.9-3.2); Lymphocytes Percent Auto 4.4 % (18.3-44.2); Mean Corpuscular HGB Conc 29.8 g/dl (32-36); Mean Corpuscular Hemoglobin 21.6 pg (26-34); Mean Corpuscular Volume 72.6 fl (80-100); Mean Platelet Volume 10.3 fl (7.4-10.4); Monocytes Absolute Auto 1.2 K/mm3 (0.1-0.6); Monocytes Percent Auto 6.6 % (2.6-8.5); Neutrophils Absolute Auto 14.9 K/mm3 (1.3-6.7); Neutrophils Percent Auto 85.9 % (45.5-73.1); Platelet Count Result 271 k/mm3 (150-375); Red Blood Count 3.79 M/mm3 (4.2-5.4); Red Cell Distribution Width 19.2 % (11.5-14.5); White Blood Count 17.3 K/mm3 (4.5-10.0)
[2020-04-18 07:53] LABS: INR 2.2; Prothrombin Time 23.9 Seconds (11.1-14.7)
[2020-04-18 07:57] LABS: Potassium 3.7 mmol/L (3.4-5.0)
--- NOTE | 2020-04-18 07:57 | PM.PNCARD ---
Progress Note: A&P Additional Plan 74-year-old lady with: Chronic atrial fibrillation and some degree of aortic valve stenosis. As I mentioned in my previous notes there is conflicting results in terms of echocardiographic and cardiac catheterization findings regarding her aortic valve disease. She is hospitalized currently we because of problematic anemia or rate after falling and having a significant hematoma developed. Because of her drifting down hemoglobin I am going to go ahead and reversed her Coumadin with vitamin K today. Albino Anthony MD [facility] Subjective Date/time seen: date of service:04/18/20 07:57 Interval history: Follow-up visit in this 74-year-old lady with chronic atrial fibrillation, aortic valve stenosis, morbid obesity and symptomatic anemia following fall and development of a significant hematoma in the region of her buttocks / low back. Patient appears to be comfortable sitting up in bed working a crossword puzzle. Discussed with the patient further decline in her hemoglobin this morning and the concept a reversing Coumadin with vitamin K which I have recommended and ordered. Exam Const: General: comfortable and no acute distress Other: Morbidly obese lady sitting in bed working a crossword puzzle HENMT: Mouth: Yes dry mucous membranes Eyes: Sclera: sclerae normal Pupils: Equal, round and reactive pupils present Neck: Neck: supple Thyroid: thyroid normal Other: inability to assess for JVD given her body habitus. Resp: Effort & Inspection: normal respiratory effort Other: Bibasilar crackles are noted Cardio: Rhythm: abnormal rhythm irregularly irregular GI: Auscultation: normal bowel sounds Skin: General skin exam: normal color Neuro: Cognition (Neuro): normal cognition Objective Data Vital Signs Vital Signs: Vital Signs - 24 hr 04/17/20 08:00 04/17/20 09:04 04/17/20 09:45 Temperature 37.1 C Pulse Rate 82 80 Respiratory Rate 20 Blood Pressure 110/61 Pulse Oximetry 99 97 04/17/20 10:52 04/17/20 12:00 04/17/20 14:21 Temperature 37.1 C Pulse Rate 88 89 81 Respiratory Rate 22 H Blood Pressure 100/56 L Pulse Oximetry 97 04/17/20 15:21 04/17/20 15:36 04/17/20 16:00 Temperature 36.6 C 36.3 C L Pulse Rate 75 82 72 Respiratory Rate 20 18 Blood Pressure 101/54 L 93/62 L Pulse Oximetry 99 100 04/17/20 16:36 04/17/20 17:36 04/17/20 18:06 Temperature 37.1 C 36.9 C Pulse Rate 78 67 77 Respiratory Rate 20 20 Blood Pressure 105/60 116/67 Pulse Oximetry 99 100 04/17/20 18:36 04/17/20 18:58 04/17/20 19:32 Temperature 36.4 C 36.6 C 37.1 C Pulse Rate 88 89 79 Respiratory Rate 18 18 20 Blood Pressure 104/65 106/55 L 106/60 Pulse Oximetry 99 100 100 04/17/20 20:00 04/17/20 20:25 04/17/20 22:00 Temperature Pulse Rate 77 78 77 Respiratory Rate Blood Pressure Pulse Oximetry 04/17/20 23:45 04/18/20 00:00 04/18/20 02:00 Temperature 36.6 C Pulse Rate 79 71 71 Respiratory Rate 20 Blood Pressure 105/53 L Pulse Oximetry 98 04/18/20 04:00 04/18/20 05:25 04/18/20 05:58 Temperature 36.6 C Pulse Rate 68 75 Respiratory Rate 20 Blood Pressure 104/80 Pulse Oximetry 100 95 Intake/Output Intake/Output: Intake & Output 04/15/20 04/16/20 04/17/20 04/18/20 23:59 23:59 23:59 23:59 Intake Total 1040 2070 1100 Output Total 550 2950 1050 Balance 490 -880 50 Meds/Results Medications: Active Medications Generic Name Dose Route Start Last Admin Trade Name Freq PRN Reason Stop Dose Admin Acetaminophen 650 mg 04/16/20 12:48 04/18/20 05:33 Tylenol Tablet PO 650 mg Q4H PRN Administration Mild Pain (1-3) or Fever Albuterol 2 puff 04/16/20 18:20 04/17/20 09:04 Proventil Hfa INHALATION 2 puff Q4H PRN Administration Shortness Of Breath Albuterol 2.5 mg 04/16/20 18:20 Albuterol Sulf Neb 2.5 Mg/3 Ml INHALATION BID PRN shortness of breath or wh
[2020-04-18 08:08] LABS: Anion Gap 8 mmol/L (8-16); Blood Urea Nitrogen 17 mg/dL (7-17); Calcium 8.4 mg/dL (8.4-10.2); Carbon Dioxide 26 mmol/L (22-30); Chloride 103 mmol/L (98-107); Creatine Kinase 489 U/L (30-135); Estimated CRCL calculation 95 ml/min; Estimated Glomerular Filt Rate > 60; Glucose 121 mg/dL (65-105); Sodium 137 mmol/L (137-145)
[2020-04-18 08:48] LABS: Hypochromasia 1+ (NORMAL); Microcytosis 1+ (NORMAL); Platelet Estimate Adequate (Adequate)
[2020-04-18] MEDS: FAMOTIDINE 20 MG/2 ML VIAL IV PUSH ×2 (09:26→20:50)
[2020-04-18] MEDS: CYANOCOBALAMIN 500 MCG TABLET PO (09:26)
[2020-04-18] MEDS: CHOLECALCIFEROL 1,000 UNITS TABLET 2000 UNITS PO (09:26)
[2020-04-18] MEDS: METOPROLOL TARTRATE 25 MG TABLET PO ×2 (09:26→20:53)
[2020-04-18] MEDS: CALCIUM CARBONATE (OSCAL) 500 MG TABLET PO (09:26)
[2020-04-18] MEDS: FUROSEMIDE INJ 40 MG/4 ML VIAL IV PUSH (09:27)
[2020-04-18] MEDS: PHYTONADIONE INJ 10 MG/ML AMP SUB-Q (10:01)
[2020-04-18] MEDS: traMADol HCL 50 MG TABLET PO (10:06)
[2020-04-18] MEDS: POTASSIUM CHLORIDE 20 MEQ TABLET 40 MEQ PO (15:50)
--- NOTE | 2020-04-18 17:47 | PM.IMPN ---
Progress Note: A&P Assessment and Plan (1) Anemia: Code(s): D64.9 - Anemia, unspecified Status: Acute Assessment and Plan: . Patient has a large hematoma on her back. which appears to be the source of the acute blood loss. No evidence of a GI bleeding at this time and has been seen by Gastroenterology holding aspirin and warfarin. Hgb stable after 3 units of prbcs at 8.2 today. Vit K per cardiology today (2) Aortic stenosis: Qualifiers: Cardiac valve disease etiology: etiology unspecified Qualified Code(s): I35.0 - Nonrheumatic aortic (valve) stenosis Code(s): I35.0 - Nonrheumatic aortic (valve) stenosis Status: Acute Assessment and Plan: Seen by Dr. Anthony. According to Raj the patient had a cardiac catheterization last year and no ischemia with mildly elevated troponin at this time. Possible DAO in the future to reassess valve (3) Pulmonary hypertension: Code(s): I27.20 - Pulmonary hypertension, unspecified Status: Chronic Assessment and Plan: She is seen by Dr. yusuf and continue with her inhalers. (4) Elevated troponin: Code(s): R79.89 - Other specified abnormal findings of blood chemistry Status: Acute Assessment and Plan: They appeared to be level. Cardiology is seeing no obstructive cad at last cath. Most likely due to her fall. could be from the congestive heart failure. no ischemic episode or [place]. (5) Rhabdomyolysis: Qualifiers: Rhabdomyolysis type: non-traumatic Qualified Code(s): M62.82 - Rhabdomyolysis Code(s): M62.82 - Rhabdomyolysis Status: Acute Assessment and Plan: CK already down to 489 and will not hydrate further with her cardiac history with renal status remaining normal (6) ALISON (obstructive sleep apnea): Code(s): G47.33 - Obstructive sleep apnea (adult) (pediatric) Status: Chronic Assessment and Plan: continue with home BiPAP. (7) Lymphedema: Code(s): I89.0 - Lymphedema, not elsewhere classified Status: Chronic Assessment and Plan: Patient typically has compression stockings are a compression device that she uses at home. (8) A-fib: Code(s): I48.91 - Unspecified atrial fibrillation Status: Chronic Assessment and Plan: Chronic And constant. Her Coumadin is on hold at this time. Continue with metoprolol. (9) CHF (congestive heart failure): Qualifiers: Heart failure chronicity: unspecified Heart failure type: unspecified Qualified Code(s): I50.9 - Heart failure, unspecified Code(s): I50.9 - Heart failure, unspecified Status: Chronic Assessment and Plan: Continue with her metoprolol and she is on IV Lasix. 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 . The patient does not appear to have cellulitis wean off 04/19 if blood cultures still negative . changes all secondary to lymphedema and chronic venous stasis. elevated WBC probably from trauma hematoma. follow serially Subjective Date/time seen: 04/18/20 17:47 Interval history: date of visit 04/18 74-year-old female with chronic AFib aortic stenosis admitted with anemia secondary to hematoma after fall. No loss of consciousness but did encur some mild rhabdo. comfortable with no complaints sitting at side of bed working a puzzle Exam Narrative: Exam Narrative: blood pressure 110/50 pulse is 90 irregular sat 99% room air afebrile lungs clear CV systolic ejection murmur abdomen soft nontender obese hematoma on buttocks and lower back extremities lymphedema neuro alert pleasant cooperative no focal deficits sitting at side of bed working a puzzle Objective Data Vital Sig
--- NOTE | 2020-04-18 18:45 | PC.NURSE ---
This patient, Leigha Wetzel, was transferred to [facility] on 04/18/20 at 1845. Personal belongings sent with patient. Belongings list checked and signed with receiving RN. Report given to JEFRY Boswell. Appropriate documentation sent with patient.
--- NOTE | 2020-04-18 18:47 | ADMGEN ---
This patient, Leigha Wetzel, was admitted to [facility] Surg Room 311-01. Patient/family oriented to hospital policies and general routines including ID bracelet, bed and alarms, visiting hours, pain management, procedures, bathroom and other care routines, personal items, smoking policy, room service/diet, and visiting hours. Valuables list has been completed. Information on how to activate the Rapid Response Team has been discussed. Patient/Family are encouraged to report perceived risks to care and to ask questions if they do not understand what they are told or what they should do.
[2020-04-18 19:33] LABS: Vancomycin Trough 11.1 ug/mL (10.0-20.0)
[2020-04-18] MEDS: WATER FOR IRRIGATION, STERILE 1,000 ML BOTTLE 1000 ML (20:50)
[2020-04-19] VITALS (13 sets, daily range): BP systolic 99–136; BP diastolic 54–76; PULSE 55–111; RESP 17–20; TEMP 36.2–37.1; O2SAT 91–100
[2020-04-19 06:30] LABS: Basophils Absolute Auto 0.1 K/mm3 (0.0-0.1); Basophils Percent Auto 0.6 % (0.2-1.2); Eosinophils Absolute Auto 0.5 K/mm3 (0-0.3); Eosinophils Percent Auto 3.7 % (0-4.4); Hematocrit 25.4 % (37.0-47.0); Hemoglobin 7.6 g/dL (12.0-15.0); Immature Granulocyte Absolute 0.26 K/mm3 (0.00-0.031); Immature Granulocyte Percent A 1.9 % (0-0.5); Lymphocytes Absolute Auto 0.91 K/mm3 (0.9-3.2); Lymphocytes Percent Auto 6.8 % (18.3-44.2); Mean Corpuscular HGB Conc 29.9 g/dl (32-36); Mean Corpuscular Hemoglobin 21.5 pg (26-34); Mean Platelet Volume 9.8 fl (7.4-10.4); Monocytes Absolute Auto 1.6 K/mm3 (0.1-0.6); Monocytes Percent Auto 11.5 % (2.6-8.5); Neutrophils Absolute Auto 10.1 K/mm3 (1.3-6.7); Neutrophils Percent Auto 75.5 % (45.5-73.1); Platelet Count Result 241 k/mm3 (150-375); Red Blood Count 3.53 M/mm3 (4.2-5.4); Red Cell Distribution Width 19.6 % (11.5-14.5); White Blood Count 13.4 K/mm3 (4.5-10.0)
[2020-04-19 06:39] LABS: INR 1.8; Prothrombin Time 20.8 Seconds (11.1-14.7)
[2020-04-19 07:28] LABS: Anion Gap 7 mmol/L (8-16); Blood Urea Nitrogen 16 mg/dL (7-17); Calcium 8.3 mg/dL (8.4-10.2); Carbon Dioxide 26 mmol/L (22-30); Chloride 104 mmol/L (98-107); Creatine Kinase 179 U/L (30-135); Estimated CRCL calculation 95 ml/min; Estimated Glomerular Filt Rate > 60; Glucose 129 mg/dL (65-105); Hyperchromasia 2+ (NORMAL); Platelet Estimate Adequate (Adequate); Potassium 4.3 mmol/L (3.4-5.0); Sodium 137 mmol/L (137-145)
[2020-04-19] MEDS: traMADol HCL 50 MG TABLET PO (08:43)
[2020-04-19] MEDS: FAMOTIDINE 20 MG/2 ML VIAL IV PUSH ×2 (08:45→21:51)
[2020-04-19] MEDS: CHOLECALCIFEROL 1,000 UNITS TABLET 2000 UNITS PO (08:45)
[2020-04-19] MEDS: METOPROLOL TARTRATE 25 MG TABLET PO (08:45)
[2020-04-19] MEDS: FUROSEMIDE INJ 40 MG/4 ML VIAL IV PUSH (08:45)
[2020-04-19] MEDS: CYANOCOBALAMIN 500 MCG TABLET PO (08:45)
[2020-04-19] MEDS: CALCIUM CARBONATE (OSCAL) 500 MG TABLET PO (08:45)
[2020-04-19] MEDS: ACETAMINOPHEN 325 MG TABLET 650 MG PO (13:12)
[2020-04-19] MEDS: SODIUM CHLORIDE NASAL GEL 14.1 GM 1 APPLIC NASAL ×2 (13:13→21:53)
--- NOTE | 2020-04-19 16:44 | PM.PNCARD ---
Progress Note: A&P Additional Plan no changes in regimen from the point of view of her cardiac status today. The patient has had her warfarin reversed with vitamin K yesterday. I do not believe she should be anticoagulated in the foreseeable future. We can discuss the risks versus benefits of systemic anticoagulation in the outpatient setting after she recovers from this major hemorrhagic event. It is likely that I will decide that the risk of systemic anticoagulation is higher than the benefit. Albino Anthony MD [facility] Subjective Date/time seen: Date of service:04/19/20 16:44 Interval history: Follow-up visit in the 74-year-old lady with chronic atrial fib, aortic valve stenosis, morbid obesity and pulmonary hypertension. Patient admitted to the hospital with symptomatic anemia with large hematoma on the buttocks after falling in her home. Coumadin has been reversed patient has been transfused hemoglobin is low but stable. Patient is feeling reasonably well today she reports that she is extremely weak and has difficult time standing up with physical therapy. Becomes emotional and somewhat upset when there was discussion of her likely going to a rehab facility. Reinforce to the patient that it is likely not safe for her to be discharged to home alone. Exam Const: General: comfortable HENMT: Mouth: Yes moist mucous membranes Eyes: Sclera: sclerae normal Pupils: Equal, round and reactive pupils present Neck: Neck: supple Thyroid: thyroid normal Other: Inability to assess JVD because of her body habitus Resp: Auscultation: clear to auscultation bilaterally and diminished lung sounds Other: breath sounds distant but clear Cardio: Rhythm: abnormal rhythm irregularly irregular GI: Auscultation: normal bowel sounds Other: massively obese Skin: General skin exam: normal color Neuro: Cognition (Neuro): normal cognition Extrem: Other: massive chronic edema Objective Data Vital Signs Vital Signs: Vital Signs - 24 hr 04/18/20 18:55 04/18/20 20:00 04/18/20 20:01 Temperature 37.0 C Pulse Rate 68 81 Respiratory Rate 18 Blood Pressure 117/65 Pulse Oximetry 100 96 04/18/20 20:53 04/18/20 20:54 04/18/20 20:58 Temperature 36.6 C Pulse Rate 76 76 113 H Respiratory Rate 18 Blood Pressure 111/53 L Pulse Oximetry 99 97 04/19/20 00:00 04/19/20 01:25 04/19/20 04:09 Temperature Pulse Rate 65 87 83 Respiratory Rate Blood Pressure Pulse Oximetry 91 04/19/20 06:00 04/19/20 07:59 04/19/20 08:12 Temperature 36.2 C L Pulse Rate 82 55 L Respiratory Rate 20 Blood Pressure 136/76 123/71 Pulse Oximetry 97 99 96 04/19/20 11:00 04/19/20 14:00 04/19/20 15:00 Temperature 36.7 C Pulse Rate 85 69 77 Respiratory Rate 17 Blood Pressure 99/54 L Pulse Oximetry 100 Intake/Output Intake/Output: Intake & Output 04/16/20 04/17/20 04/18/20 04/19/20 23:59 23:59 23:59 23:59 Intake Total 1040 2070 2750 1080 Output Total 687 1806 2873 1352 Balance 490 -880 -125 -270 Meds/Results Medications: Active Medications Generic Name Dose Route Start Last Admin Trade Name Freq PRN Reason Stop Dose Admin Acetaminophen 650 mg 04/16/20 12:48 04/19/20 13:12 Tylenol Tablet PO 650 mg Q4H PRN Administration Mild Pain (1-3) or Fever Albuterol 2 puff 04/16/20 18:20 04/17/20 09:04 Proventil Hfa INHALATION 2 puff Q4H PRN Administration Shortness Of Breath Albuterol 2.5 mg 04/16/20 18:20 Albuterol Sulf Neb 2.5 Mg/3 Ml INHALATION BID PRN shortness of breath or wheezing Budesonide/Formoterol Fumarate 2 puff 04/16/20 20:00 04/19/20 08:12 Symbicort 160-4.5 Mcg (*Sp) Inhaler INHALATION 2 puff Q12HRT LORENZO Administration Calcium Carbonate 500 mg 04/17/20 09:00 04/19/20 08:45 Oscal 500 Mg PO 500 mg DAILY LORENZO Administration Cyanocobalamin 500 mcg 04/17/20 09:00 04/19/20 08:45 Vitamin B-12 Tab PO
--- NOTE | 2020-04-19 17:05 | PM.IMPN ---
Progress Note: A&P Assessment and Plan (1) Anemia: Code(s): D64.9 - Anemia, unspecified Status: Acute Assessment and Plan: . Patient has a large hematoma on her lower back. which appears to be the source of the acute blood loss. No evidence of a GI bleeding at this time and has been seen by Gastroenterology holding aspirin and warfarin. Hgb slightly decreased after 3 units of prbcs at 7.6 today. Vit K per cardiology 04/18. recheck am with low mcv will check Fe studies also (2) Aortic stenosis: Qualifiers: Cardiac valve disease etiology: etiology unspecified Qualified Code(s): I35.0 - Nonrheumatic aortic (valve) stenosis Code(s): I35.0 - Nonrheumatic aortic (valve) stenosis Status: Acute Assessment and Plan: Seen by Dr. Anthony. According to Raj the patient had a cardiac catheterization last year and no ischemia with mildly elevated troponin at this time. Possible DAO in the future to reassess valve (3) Pulmonary hypertension: Code(s): I27.20 - Pulmonary hypertension, unspecified Status: Chronic Assessment and Plan: She is seen by Dr. yusuf and continue with her inhalers. (4) Elevated troponin: Code(s): R79.89 - Other specified abnormal findings of blood chemistry Status: Acute Assessment and Plan: They appeared to be level. Cardiology is seeing no obstructive cad at last cath. Most likely due to her fall. could be from the congestive heart failure. no ischemic episode or [place]. (5) Rhabdomyolysis: Qualifiers: Rhabdomyolysis type: non-traumatic Qualified Code(s): M62.82 - Rhabdomyolysis Code(s): M62.82 - Rhabdomyolysis Status: Acute Assessment and Plan: CK already down to 179 and did not hydrate further with her cardiac history with renal status remaining normal (6) ALISON (obstructive sleep apnea): Code(s): G47.33 - Obstructive sleep apnea (adult) (pediatric) Status: Chronic Assessment and Plan: continue with home BiPAP. (7) Lymphedema: Code(s): I89.0 - Lymphedema, not elsewhere classified Status: Chronic Assessment and Plan: Patient has home compression stockings now (8) A-fib: Code(s): I48.91 - Unspecified atrial fibrillation Status: Chronic Assessment and Plan: Chronic And constant. Her Coumadin is on hold at this time. Continue with metoprolol. (9) CHF (congestive heart failure): Qualifiers: Heart failure chronicity: unspecified Heart failure type: unspecified Qualified Code(s): I50.9 - Heart failure, unspecified Code(s): I50.9 - Heart failure, unspecified Status: Chronic Assessment and Plan: Continue with her metoprolol and she is on IV Lasix. 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 . The patient does not appear to have cellulitis stopped antibiotics . changes all secondary to lymphedema and chronic venous stasis. elevated WBC probably from trauma hematoma. follow serially Subjective Date/time seen: 04/19/20 17:05 Interval history: date of visit 04/19 74-year-old female with chronic AFib aortic stenosis admitted with anemia secondary to hematoma after fall. No loss of consciousness but did incur some mild rhabdo. comfortable with no new complaints , still sob with exertion Exam Narrative: Exam Narrative: blood pressure 100/54 pulse is 70 irregular sat 100% 2L afebrile lungs clear CV systolic ejection murmur abdomen soft nontender obese hematoma on buttocks and lower back extremities lymphedema and decreased some with diuresis neuro alert pleasant cooperative no focal deficits Objective Data Vital Signs Vital Signs: Vital Signs
[2020-04-20] VITALS (12 sets, daily range): BP systolic 100–114; BP diastolic 45–52; PULSE 74–96; RESP 18–20; TEMP 36.6–37.1; O2SAT 95–100
--- NOTE | 2020-04-20 04:00 | PC.NURSE ---
Patient refused to have Covid test performed. Stated she has not made a decision regarding placement at this time. Monet, patients RN informed.
[2020-04-20] MEDS: ACETAMINOPHEN 325 MG TABLET 650 MG PO (04:11)
[2020-04-20 06:38] LABS: Basophils Absolute Auto 0.1 K/mm3 (0.0-0.1); Basophils Percent Auto 0.8 % (0.2-1.2); Eosinophils Absolute Auto 0.6 K/mm3 (0-0.3); Eosinophils Percent Auto 4.2 % (0-4.4); Hemoglobin 7.8 g/dL (12.0-15.0); Immature Granulocyte Absolute 0.68 K/mm3 (0.00-0.031); Immature Granulocyte Percent A 5.1 % (0-0.5); Lymphocytes Absolute Auto 0.85 K/mm3 (0.9-3.2); Lymphocytes Percent Auto 6.4 % (18.3-44.2); Mean Corpuscular Hemoglobin 21.7 pg (26-34); Mean Corpuscular Volume 72.2 fl (80-100); Mean Platelet Volume 10.7 fl (7.4-10.4); Monocytes Absolute Auto 1.7 K/mm3 (0.1-0.6); Monocytes Percent Auto 12.8 % (2.6-8.5); Neutrophils Absolute Auto 9.4 K/mm3 (1.3-6.7); Neutrophils Percent Auto 70.7 % (45.5-73.1); Platelet Count Result 269 k/mm3 (150-375); White Blood Count 13.3 K/mm3 (4.5-10.0)
[2020-04-20 06:57] LABS: Anion Gap 5 mmol/L (8-16); Blood Urea Nitrogen 15 mg/dL (7-17); Calcium 8.4 mg/dL (8.4-10.2); Carbon Dioxide 28 mmol/L (22-30); Chloride 102 mmol/L (98-107); Estimated CRCL calculation 95 ml/min; Estimated Glomerular Filt Rate > 60; Glucose 131 mg/dL (65-105); Potassium 4.2 mmol/L (3.4-5.0); Sodium 135 mmol/L (137-145)
[2020-04-20 07:40] LABS: Hypochromasia 1+ (NORMAL); Ovalocytes 1+ (NORMAL); Poikilocytosis 1+ (NORMAL)
[2020-04-20 07:41] LABS: Anisocytosis 1+ (NORMAL); Platelet Estimate Adequate (Adequate)
[2020-04-20 08:15] LABS: Iron 22 ug/dL (37-170)
[2020-04-20 08:24] LABS: Percent Iron Saturation 6 % (20-50)
[2020-04-20] MEDS: METOPROLOL TARTRATE 25 MG TABLET PO ×2 (08:40→21:31)
[2020-04-20] MEDS: CHOLECALCIFEROL 1,000 UNITS TABLET 2000 UNITS PO (08:42)
[2020-04-20] MEDS: CALCIUM CARBONATE (OSCAL) 500 MG TABLET PO (08:43)
[2020-04-20] MEDS: FAMOTIDINE 20 MG/2 ML VIAL IV PUSH (08:43)
[2020-04-20] MEDS: FUROSEMIDE INJ 40 MG/4 ML VIAL IV PUSH (08:43)
[2020-04-20] MEDS: traMADol HCL 50 MG TABLET PO ×2 (08:44→19:50)
[2020-04-20] MEDS: CYANOCOBALAMIN 500 MCG TABLET PO (08:45)
--- NOTE | 2020-04-20 11:09 | PM.IMPN ---
Progress Note: A&P Assessment and Plan (1) Anemia: Code(s): D64.9 - Anemia, unspecified Status: Acute Assessment and Plan: Patient has a large hematoma on her lower back. which appears to be the source of the acute blood loss. No evidence of a GI bleeding at this time and has been seen by Gastroenterology. Holding aspirin and warfarin. Hgb 6.1 on admission and received 2U PRBC ( on 04/16 and 04/17). Hgb 8.2 on 04/18 but in the 7 range since. Will continue to follow for stability. Iron deficiency noted. Add Fe. (2) Aortic stenosis: Qualifiers: Cardiac valve disease etiology: etiology unspecified Qualified Code(s): I35.0 - Nonrheumatic aortic (valve) stenosis Code(s): I35.0 - Nonrheumatic aortic (valve) stenosis Status: Acute Assessment and Plan: Seen by Dr. Anthony. According to Raj the patient had a cardiac catheterization last year and no ischemia with mildly elevated troponin at this time. Possible DAO in the future to reassess valve (3) Pulmonary hypertension: Code(s): I27.20 - Pulmonary hypertension, unspecified Status: Chronic Assessment and Plan: She is seen by Dr. yusuf and continue with her inhalers. Wean O2 as toelrated. (4) Elevated troponin: Code(s): R79.89 - Other specified abnormal findings of blood chemistry Status: Acute Assessment and Plan: They appeared to be level. Cardiology is seeing no obstructive cad at last cath. Most likely due to her fall/rhabdomyolysis and from the congestive heart failure. no ischemic episode or [place]. (5) Rhabdomyolysis: Qualifiers: Rhabdomyolysis type: non-traumatic Qualified Code(s): M62.82 - Rhabdomyolysis Code(s): M62.82 - Rhabdomyolysis Status: Acute Assessment and Plan: CK down to 179 and did not hydrate further due to her cardiac history. Renal status remaining normal. (6) ALISON (obstructive sleep apnea): Code(s): G47.33 - Obstructive sleep apnea (adult) (pediatric) Status: Chronic Assessment and Plan: continue with home BiPAP. Encourage compliance (7) Lymphedema: Code(s): I89.0 - Lymphedema, not elsewhere classified Status: Chronic Assessment and Plan: Stable. Patient has home compression stockings now. (8) A-fib: Code(s): I48.91 - Unspecified atrial fibrillation Status: Chronic Assessment and Plan: Chronic and constant. Her Coumadin is on hold at this time. Continue with metoprolol. Cardiology did not think patient should be anticoagulation in the foreseeable future. 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 Continue with her metoprolol and she is on IV Lasix. Will change to p.o. Lasix. (10) Cellulitis of foot: Code(s): L03.119 - Cellulitis of unspecified part of limb Status: Acute Assessment and Plan: patient was started on vancomycin and Zosyn but the patient does not appear to have cellulitis so stopped antibiotics . changes all secondary to lymphedema and chronic venous stasis. elevated WBC probably from trauma hematoma. White count slowly trending downward. Subjective Date/time seen: 04/20/20 11:09 Interval history: date of visit 04/20 74-year-old female with chronic AFib, aortic stenosis admitted with anemia secondary to hematoma after fall. No loss of consciousness but did incur some mild rhabdo. feeling better. Denies back pain. No chest pain. She was having more significant right foot pain but this is even better today as well. She does not wear oxygen at home. She sle
--- NOTE | 2020-04-20 14:48 | PM.PNCARD ---
Progress Note: A&P Assessment and Plan (1) Hematoma and contusion: Code(s): T14.8XXA - Other injury of unspecified body region, initial encounter Status: Acute Assessment and Plan: Resulted from a fall. Warfarin was reversed with vitamin K. she will not be anticoagulated in the foreseeable future. Dr. Anthony will discuss the risk versus benefits of systemic anticoagulation in the outpatient setting after she recovers from her major hemorrhagic event. Follow-up appointment has been arranged for June [address] Anthony. (2) A-fib: Code(s): I48.91 - Unspecified atrial fibrillation Status: Chronic Assessment and Plan: Tachycardic with activity. Continue Metoprolol 25 mg b.i.d. Resting heart rate is in the 80s. DC telemetry. Additional Plan No further cardiac recommendations. Cardiology will sign off. Do not hesitate to call if we can be of further assistance. See discharge instructions for follow-up Plan discussed with Dr. Shipley 1515 04/20/2020 Subjective Date/time seen: 04/20/20 14:48 Interval history: Follow-up for: chronic atrial fib, aortic valve stenosis, morbid obesity and pulmonary hypertension. Admitted to the hospital with symptomatic anemia with large hematoma on the buttocks after falling in her home. Date of service : 04/20/2020 Subjective: Denied chest discomfort. Right foot very sore. Short of breath with exertional activity. Denied orthopnea or PND. Review of Systems Constitutional: Constitutional: Reports fatigue and Reports weakness Eyes: Eyes: Denies blurry vision ENT: Reports Normal hearing present Cardiovascular: Cardiovascular: Denies chest pain, Reports pedal edema, Reports leg edema, Denies lightheadedness and Reports dyspnea on exertion Respiratory: Respiratory: Reports dyspnea on exertion Gastrointestinal: Gastrointestinal: Denies abdominal pain Genitourinary: Genitourinary: Denies hematuria Musculoskeletal: Musculoskeletal: Reports back pain Neurologic: Reports abnormal gait, Denies dizziness and Reports weakness Psychiatric: Psychiatric: Denies anxiety and Denies depression Endocrine: Endocrine: Reports fatigue Hematologic/Lymphatic: Hematologic/Lymphatic: Reports easy bruising Allergic/Immunologic: Allergic/Immunologic: Denies throat swelling and Denies tongue swelling Exam Narrative: Exam Narrative: Visibly short of breath walking back from the bathroom slowly with her cane. No distress. Const: General: cooperative, comfortable, no acute distress, alert, awake and Physically active Nutritional Appearance: obese Orientation/consciousness: patient oriented x3 Limitations: physical limitations ( Unsteady gait) Other: HENMT: Head: normal to inspection and normocephalic Ears: hearing grossly normal bilaterally General nose exam: Normal nares present Mouth: Yes moist mucous membranes Eyes: Sclera: sclerae normal Pupils: Equal, round and reactive pupils present Neck: Neck: supple Carotids: bruit on the right ( versus radiation to her carotid from her aortic stenosis) Other: Inability to assess JVD because of her body habitus Resp: Effort & Inspection: normal respiratory effort and able to speak in complete sentences Auscultation: clear to auscultation bilaterally Other: Cardio: Rhythm: abnormal rhythm irregularly irregular Heart sounds: Murmur heart sound present systolic III/, at the base and at the right sternal border Bruits: carotid bruit on the right ( versus radiation from her aortic stenosis) Peripheral pulses: radial pulses present bilateral 2+ and popliteal pulses present on the right ( foot too tender to palpate pulses) and on the left ( foot too tender to palpate pulses) GI: Auscultation: normal bowel sounds Other: massively obese Skin: General skin exam: normal color and ecchymosis ( buttocks and lower back) Neuro:
[2020-04-20] MEDS: FERROUS SULFATE 324 MG TABLET PO (16:30)
[2020-04-20] MEDS: FAMOTIDINE 20 MG TABLET PO (21:32)
[2020-04-20] MEDS: SODIUM CHLORIDE NASAL GEL 14.1 GM 1 APPLIC NASAL (21:32)
[2020-04-21] VITALS (7 sets, daily range): BP systolic 119; BP diastolic 52–57; PULSE 68–85; RESP 16–22; TEMP 36.4–36.7; O2SAT 92–100
[2020-04-21] MEDS: traMADol HCL 50 MG TABLET PO ×3 (01:16→20:32)
[2020-04-21] MEDS: ACETAMINOPHEN 325 MG TABLET 650 MG PO (01:16)
[2020-04-21 06:15] LABS: Hematocrit 28.7 % (37.0-47.0); Hemoglobin 8.4 g/dL (12.0-15.0); Mean Corpuscular HGB Conc 29.3 g/dl (32-36); Mean Corpuscular Hemoglobin 21.3 pg (26-34); Mean Corpuscular Volume 72.7 fl (80-100); Platelet Count Result 330 k/mm3 (150-375); Red Blood Count 3.95 M/mm3 (4.2-5.4); Red Cell Distribution Width 20.3 % (11.5-14.5)
[2020-04-21 06:20] LABS: Anion Gap 7 mmol/L (8-16); Blood Urea Nitrogen 17 mg/dL (7-17); Calcium 8.8 mg/dL (8.4-10.2); Carbon Dioxide 28 mmol/L (22-30); Chloride 101 mmol/L (98-107); Estimated CRCL calculation 95 ml/min; Estimated Glomerular Filt Rate > 60; Glucose 120 mg/dL (65-105); Potassium 4.3 mmol/L (3.4-5.0); Sodium 136 mmol/L (137-145)
--- NOTE | 2020-04-21 08:07 | PC.NURSE ---
1999 meds were adminstered under the wrong nurse name and was corrected this am with that nurse.
[2020-04-21] MEDS: CALCIUM CARBONATE (OSCAL) 500 MG TABLET PO (08:35)
[2020-04-21] MEDS: FERROUS SULFATE 324 MG TABLET PO ×2 (08:35→16:59)
[2020-04-21] MEDS: CYANOCOBALAMIN 500 MCG TABLET PO (08:35)
[2020-04-21] MEDS: CHOLECALCIFEROL 1,000 UNITS TABLET 2000 UNITS PO (08:35)
[2020-04-21] MEDS: METOPROLOL TARTRATE 25 MG TABLET PO ×2 (08:36→20:33)
[2020-04-21] MEDS: FAMOTIDINE 20 MG TABLET PO ×2 (08:36→20:34)
[2020-04-21] MEDS: FUROSEMIDE 20 MG TABLET PO (08:36)
[2020-04-21 14:19] LABS: SARS-CoV-2 RNA PCR Negative
--- NOTE | 2020-04-21 18:25 | PC.NURSE ---
To Radiology per w/c.
--- NOTE | 2020-04-21 18:50 | PM.IMPN ---
Progress Note: A&P Assessment and Plan (1) Foot pain, right: Code(s): M79.671 - Pain in right foot Status: Acute Assessment and Plan: Persistent foot pain. Repeat xray today not revealing occult fracture but she is osteropenic so may be hiding this. Suspect more likely that she has sprained this area by rolling the foot and now it is more tender since she is up walking. Will obtain CT to assess for occult fracture. (2) Anemia: Code(s): D64.9 - Anemia, unspecified Status: Acute Assessment and Plan: Patient has a large hematoma on her lower back related to her fall which appears to be the source of the acute blood loss. No evidence of a GI bleeding at this time and has been seen by Gastroenterology. Holding aspirin and warfarin. Hgb 6.1 on admission and received 2U PRBC (on 04/16 and 04/17). Hgb 8.2 on 04/18 but dropped to 7 range. Hgb better today at 8.4. Will continue to follow for stability. Iron deficiency noted and iron added. (3) Aortic stenosis: Qualifiers: Cardiac valve disease etiology: etiology unspecified Qualified Code(s): I35.0 - Nonrheumatic aortic (valve) stenosis Code(s): I35.0 - Nonrheumatic aortic (valve) stenosis Status: Acute Assessment and Plan: Echo showing severe with RICH 0.8cm2. She had a cardiac catheterization last year which showed that AV not as stenotic. Due to the discrepency, plan for DAO at some point. Cardiology following. (4) Pulmonary hypertension: Code(s): I27.20 - Pulmonary hypertension, unspecified Status: Chronic Assessment and Plan: She is seen by Dr. Arevalo and continue with her inhalers. (5) Elevated troponin: Code(s): R79.89 - Other specified abnormal findings of blood chemistry Status: Acute Assessment and Plan: They appeared to be level. Cardiology is following. No obstructive CAD at last cath. Most likely due to her fall/rhabdomyolysis and from the congestive heart failure. Not felt to be ischemic related. (6) Rhabdomyolysis: Qualifiers: Rhabdomyolysis type: non-traumatic Qualified Code(s): M62.82 - Rhabdomyolysis Code(s): M62.82 - Rhabdomyolysis Status: Acute Assessment and Plan: CK down to 179 and did not hydrate further due to her cardiac history. Renal status remaining normal. (7) ALISON (obstructive sleep apnea): Code(s): G47.33 - Obstructive sleep apnea (adult) (pediatric) Status: Chronic Assessment and Plan: Stable. Continue with home BiPAP. Encourage compliance (8) Lymphedema: Code(s): I89.0 - Lymphedema, not elsewhere classified Status: Chronic Assessment and Plan: Stable. Continue home compression stockings now. (9) A-fib: Code(s): I48.91 - Unspecified atrial fibrillation Status: Chronic Assessment and Plan: Chronic and constant. Her Coumadin is on hold at this time. Continue with metoprolol. Cardiology did not think patient should be anticoagulation in the foreseeable future. (10) CHF (congestive heart failure): Qualifiers: Heart failure chronicity: unspecified Heart failure type: unspecified Qualified Code(s): I50.9 - Heart failure, unspecified Code(s): I50.9 - Heart failure, unspecified Status: Chronic Assessment and Plan: CHF secondary to and/or diastolic dysfunction. Continue with her metoprolol. She was on IV Lasix and had excellent UOP. She was changed back to p.o. Lasix. Will advance Lasix home dose to 40mg daily. (11) Cellulitis of foot: Code(s): L03.119 - Cellulitis of unspecified part of limb Status: Acute Assessment and Plan: Patient was started on vancomycin and Zosyn but the patient does not appear to have cellulitis so antibiotics stopped. [place] changes all secondary to lymphedema and chronic venous stasis. Elevated WBC probably f
[2020-04-21] MEDS: SODIUM CHLORIDE NASAL GEL 14.1 GM 1 APPLIC NASAL (20:34)
[2020-04-22 02:16] VITALS: PULSE 78; O2SAT 97
[2020-04-22] MEDS: traMADol HCL 50 MG TABLET PO ×3 (02:26→17:51)
[2020-04-22] MEDS: ACETAMINOPHEN 325 MG TABLET 650 MG PO (02:27)
[2020-04-22 06:00] VITALS: BP 107/47; PULSE 81; RESP 20; TEMP 36.6; O2SAT 97
[2020-04-22 06:59] LABS: Hematocrit 25.2 % (37.0-47.0); Hemoglobin 7.6 g/dL (12.0-15.0); Mean Corpuscular HGB Conc 30.2 g/dl (32-36); Mean Corpuscular Hemoglobin 21.7 pg (26-34); Mean Corpuscular Volume 71.8 fl (80-100); Mean Platelet Volume 10.1 fl (7.4-10.4); Platelet Count Result 268 k/mm3 (150-375); Red Blood Count 3.51 M/mm3 (4.2-5.4); Red Cell Distribution Width 20.4 % (11.5-14.5); White Blood Count 10.5 K/mm3 (4.5-10.0)
[2020-04-22 07:12] LABS: Anion Gap 6 mmol/L (8-16); Blood Urea Nitrogen 17 mg/dL (7-17); Calcium 8.3 mg/dL (8.4-10.2); Carbon Dioxide 28 mmol/L (22-30); Chloride 101 mmol/L (98-107); Estimated CRCL calculation 109 ml/min; Estimated Glomerular Filt Rate > 60; Glucose 118 mg/dL (65-105); Potassium 4.7 mmol/L (3.4-5.0); Sodium 135 mmol/L (137-145)
[2020-04-22] MEDS: FERROUS SULFATE 324 MG TABLET PO ×2 (08:39→17:52)
[2020-04-22 08:40] VITALS: PULSE 81
[2020-04-22] MEDS: CYANOCOBALAMIN 500 MCG TABLET PO (08:40)
[2020-04-22] MEDS: CHOLECALCIFEROL 1,000 UNITS TABLET 2000 UNITS PO (08:40)
[2020-04-22] MEDS: CALCIUM CARBONATE (OSCAL) 500 MG TABLET PO (08:40)
[2020-04-22] MEDS: FAMOTIDINE 20 MG TABLET PO (08:40)
[2020-04-22] MEDS: METOPROLOL TARTRATE 25 MG TABLET PO (08:40)
[2020-04-22 09:10] VITALS: PULSE 73; RESP 18; O2SAT 99
[2020-04-22] MEDS: FUROSEMIDE 40 MG TABLET PO (09:40)
[2020-04-22 14:00] VITALS: BP 94/53; PULSE 92; RESP 20; TEMP 36.9; O2SAT 95
--- NOTE | 2020-04-22 14:11 | PM.DS ---
DS: Admitting Diagnosis Admitting Diagnosis Admitting Diagnosis: anemia,hypoxia,ch,aortic stenosis DS: Discharge Diagnosis Discharge Diagnosis (1) Foot pain, right: Code(s): M79.671 - Pain in right foot Status: Acute Assessment and Plan: Persistent right foot pain. Xray on admission did not reveal fracture. Repeat xray also did not reveal an occult fracture but she is osteropenic so may be hiding this. CT scan showing foot efema from her lymphedema but no fracture. Suspect more likely that she has sprained this area by rolling the foot and now it is more tender since she is up walking. Continue symptomatic care. (2) Anemia: Code(s): D64.9 - Anemia, unspecified Status: Acute Assessment and Plan: Patient has a large hematoma on her lower back related to her fall which appears to be the source of the acute blood loss. No evidence of a GI bleeding at this time and has been seen by Gastroenterology. Holding aspirin and warfarin. Hgb 6.1 on admission and received 2U PRBC (on 04/16 and 04/17). Hgb 8.2 on 04/18 but dropped to 7-8 range. Iron deficiency noted and iron added. (3) Aortic stenosis: Qualifiers: Cardiac valve disease etiology: etiology unspecified Qualified Code(s): I35.0 - Nonrheumatic aortic (valve) stenosis Code(s): I35.0 - Nonrheumatic aortic (valve) stenosis Status: Acute Assessment and Plan: Echo showing severe with RICH 0.8cm2. She had a cardiac catheterization last year which showed that AV not as stenotic. Due to the discrepency, plan for DAO at some point. Cardiology followed along (4) Pulmonary hypertension: Code(s): I27.20 - Pulmonary hypertension, unspecified Status: Chronic Assessment and Plan: She is seen by Dr. Arevalo. She is also on inhalers that were continued. (5) Elevated troponin: Code(s): R79.89 - Other specified abnormal findings of blood chemistry Status: Acute Assessment and Plan: Trop mildly elevated but level. Cardiology is following. No obstructive CAD at last cath. Most likely due to her fall/rhabdomyolysis and from the congestive heart failure. Not felt to be ischemic related. (6) Rhabdomyolysis: Qualifiers: Rhabdomyolysis type: non-traumatic Qualified Code(s): M62.82 - Rhabdomyolysis Code(s): M62.82 - Rhabdomyolysis Status: Acute Assessment and Plan: CK down to 179 and did not hydrate further due to her cardiac history. Renal status remaining normal. (7) ALISON (obstructive sleep apnea): Code(s): G47.33 - Obstructive sleep apnea (adult) (pediatric) Status: Chronic Assessment and Plan: Stable. Continue with home BiPAP. Encouraged compliance (8) Lymphedema: Code(s): I89.0 - Lymphedema, not elsewhere classified Status: Chronic Assessment and Plan: Stable. We continued home compression stockings now. (9) A-fib: Code(s): I48.91 - Unspecified atrial fibrillation Status: Chronic Assessment and Plan: Chronic and constant. Her Coumadin is on hold at this time. We continued with metoprolol. Cardiology did not think patient should be anticoagulation in the foreseeable future. (10) CHF (congestive heart failure): Qualifiers: Heart failure chronicity: unspecified Heart failure type: unspecified Qualified Code(s): I50.9 - Heart failure, unspecified Code(s): I50.9 - Heart failure, unspecified Status: Chronic Assessment and Plan: CHF secondary to and/or diastolic dysfunction. We continued with her metoprolol. She was on IV Lasix and had excellent UOP. She was changed back to p.o. Lasix. She was initially discharged to [facility] on Lasix 20mg daily inadvertently. Called [facility] and spoke with Supriya at 8pm on 04/23/20 and instructed her to increase Lasix to 40mg daily with BMP on 05/03/20.
== END 2020-04-22 19:23 | DRG 605 ==
LOC: ANHED 11:58 → ANHIMU 15:48 → ANH3MEDSUR 04-20 06:41 → ANHIMU 04-26 18:10
PROVIDERS: Family Medicine; Nurse Practitioner; Admitting Provider Internal Medicine; Emergency Provider Emergency Medicine; Visit Provider Internal Medicine
DX: S30.0XXA Contusion of lower back and pelvis, initial encounter (principal); D62 Acute posthemorrhagic anemia; I48.20 Chronic atrial fibrillation, unspecified; M62.82 Rhabdomyolysis; Z68.43 Body mass index [BMI] 50.0-59.9, adult; I50.32 Chronic diastolic (congestive) heart failure; Z20.828 Contact with and (suspected) exposure to other viral communicable diseases; S93.691A Other sprain of right foot, initial encounter; I35.0 Nonrheumatic aortic (valve) stenosis; I27.20 Pulmonary hypertension, unspecified; R79.89 Other specified abnormal findings of blood chemistry; G47.33 Obstructive sleep apnea (adult) (pediatric); I89.0 Lymphedema, not elsewhere classified; E66.01 Morbid (severe) obesity due to excess calories; M19.90 Unspecified osteoarthritis, unspecified site; W01.0XXA Fall on same level from slipping, tripping and stumbling without subsequent striking against object, initial encounter; M85.80 Other specified disorders of bone density and structure, unspecified site; I87.8 Other specified disorders of veins; Z79.01 Long term (current) use of anticoagulants; Z86.718 Personal history of other venous thrombosis and embolism
CPT/HCPCS: 36415; 36430; 71045; 73620; 73700; 80048; 80053; 80202; 82274; 82550; 82728; 83540; 83550; 83605; 83880; 84443; 84484; 85014; 85018; 85025; 85027; 85046; 85610; 86140; 86850; 86900; 86901; 86923; 87040; 87635; 93005; 94640; 97110; 97116; 97161; 97166; 97530; 97535; 99291; A9270; C9803; J1940; J2543; J3370; J3430; J7050; P9016; U0003

== ENCOUNTER 2020-06-22 15:38 | Outpatient (CLI) | payer OTHER, SELFPAY ==
--- NOTE | ~2020-06-22 | DEXA_ITS ---
Bone Density Report Name: Leigha Wetzel Age: 74 Sex: Female Ethnicity: White Date of : 1945 Indication: postmenopausal; height loss; rheumatoid arthritis; Referring Provider: Dayanna, Marisela Study: Bone densitometry was performed. Exam Date: June 22, 2020 Accession number: [id number] Bone Density: Region BMD T-score Z-score Classification AP Spine (L1-L4) 1.152 1.0 3.3 Normal Femoral Neck (Left) 0.711 -1.2 0.8 Osteopenia Total Hip (Left) 0.788 -1.3 0.5 Osteopenia Total Hip Bilateral Avg 0.836 -0.9 0.9 Normal Femoral Neck (Right) 0.668 -1.6 0.4 Osteopenia Total Hip (Right) 0.883 -0.5 1.3 Normal World Health Organization criteria for BMD impression classify patients as: Normal (T-score at or above -1.0), Osteopenia (T-score between -1.0 and -2.5), or Osteoporosis (T-score at or below -2.5). 10-year Fracture Risk(1): Major Osteoporotic Fracture 12% Hip Fracture 2.5% Reported Risk Factors: [place] (), Neck BMD=0.668, BMI=45.2, rheumatoid arthritis Input outside FRAX(R) limits. Adjusted to:Zdoiim=893 kg (1) FRAX(R) Version 3.08. Fracture probability calculated for an untreated patient. Fracture probability may be lower if the patient has received treatment. Clinical Information Provided by Patient: Has rheumatoid arthritis Patient maximum height was 67 Menopause Age: 50 No regular weight bearing exercise Onset of menses at age 12 Number of children 5 Impression: The patient has low bone mass, based on the Right Femoral Neck T-score. The patient has an estimated ten-year risk of hip fracture of 2.5% and an estimated ten-year risk of major fracture of 12%, based on the WHO FRAX algorithm. Discussion: BONE DENSITY IS LOW AT ONE OR MORE SKELETAL SITES. This patient's lowest T-score is low at one or more skeletal sites. It meets the World Health Organization's (WHO) criteria for ?low bone mass? (T-score between -1.0 and -2.5). The patient's 10-year risk of fracture as calculated by FRAX is less than the threshold where pharmacological therapy is recommended by the National Osteoporosis Foundation (NOF). However, all treatment decisions require clinical judgment and consideration of individual patient factors, including patient preferences, comorbidities, previous drug use, risk factors not captured in the FRAX model (e.g., frailty, falls, vitamin D deficiency, increased bone turnover, interval significant decline in bone density) and possible under or overestimation of fracture risk by FRAX. The patient should follow a healthful lifestyle (good nutrition with adequate calcium and vitamin D, and appropriate weight-bearing exercise). Follow-Up: Consider repeating this study in 2 to 3 years to reassess this patient's status, or sooner if there is some new clinical indication. Reported
--- NOTE | ~2020-06-22 | MM_ITS ---
EXAMINATION: MM screening pippa BI w oswaldo HISTORY: Screening mammogram TECHNIQUE: Craniocaudal and mediolateral oblique 3-D tomosynthesis images were obtained and synthetic 2-D images were generated. CAD analysis was submitted and interpreted. COMPARISON: No prior mammogram is available for comparison at this institution. BREAST PARENCHYMAL COMPOSITION: There are scattered areas of fibroglandular density. FINDINGS: There is no evidence of suspicious mass, calcification, or architectural distortion to sugg est malignancy in either breast. There has been no suspicious interval change. IMPRESSION: 1. No mammographic evidence of malignancy. 2. Recommend routine screening mammography in one year. BI-RADS Category 1: Negative Reviewed, dictated and finalized at location A.
== END 2020-06-22 15:39 | disposition home or self-care (01) ==
PROVIDERS: Visit Provider Obstetrics & Gynecology Gynecology
DX: Z12.31 Encounter for screening mammogram for malignant neoplasm of breast (principal); Z78.0 Asymptomatic menopausal state; M85.852 Other specified disorders of bone density and structure, left thigh; M85.851 Other specified disorders of bone density and structure, right thigh
CPT/HCPCS: 77063; 77067; 77080

== ENCOUNTER 2020-07-02 14:54 | Outpatient (CLI) | payer OTHER, SELFPAY ==
--- NOTE | ~2020-07-02 | US_ITS ---
EXAMINATION:US venous doppler LE BI INDICATION:Leg pain and swelling TECHNIQUE: Multiple grayscale, color flow and Doppler images of the right and left lower extremity de ep venous systems were obtained and reviewed. COMPARISON:No prior studies for comparison. FINDINGS: The common femoral, superficial femoral and popliteal veins demonstrate normal respiratory variation, augmentation and compressibility. Color flow is also seen within the posterior tibial vei ns. Limited evaluation of the peroneal, soleus, greater and lesser saphenous veins. IMPRESSION: 1: No lower extremity deep venous thrombosis. Limited study. Reviewed, dictated and finalized at location A.
== END 2020-07-02 14:55 | disposition home or self-care (01) ==
PROVIDERS: Visit Provider Nurse Practitioner Family
DX: M25.462 Effusion, left knee (principal); M79.89 Other specified soft tissue disorders
CPT/HCPCS: 93970

== ENCOUNTER → 2020-12-17 01:56 | Outpatient (CLI) | payer OTHER, SELFPAY ==
[2020-12-17 19:39] LABS: SARS-CoV-2 RNA PCR Negative
== END ==
PROVIDERS: Visit Provider Specialist
DX: Z01.812 Encounter for preprocedural laboratory examination (principal); Z20.822 Contact with and (suspected) exposure to COVID-19
CPT/HCPCS: C9803; U0003; U0005

== ENCOUNTER 2020-12-20 00:56 | Day surgery (SDC) | payer OTHER, SELFPAY ==
[2020-12-17 12:30] VITALS: BMI 54.0
[2020-12-20] VITALS (7 sets, daily range): BP systolic 133–152; BP diastolic 48–88; PULSE 67–81; RESP 18–20; TEMP 36.6; O2SAT 97–100; BMI 55.0
--- NOTE | 2020-12-20 | ECHO_ITS ---
Patient Info Name: Leigha Wetzel Age: 74 years : 1945 Gender: Female Ht: 67 in Wt: 345 lbs BSA: 2.82 m2 Technical Quality: Good Exam Date: 12/20/2020 11:09 AM Exam Location: [facility] Patient Status: Outpatient Admit Date: 12/20/2020 Staff Ordering Physician: Albino Anthony MD Nephrologist: Collette Daniels RDCS Attending Provider: Albino Anthony MD Referring Physician: Raj CONNOLLY; Exam Type: CA echo transesophageal Study Info Indications I35.0 - Nonrheumatic aortic (valve) stenosis Complete two-dimensional, color flow and Doppler transesophageal study is performed. Summary 1. Transesophageal echo done to evaluate severity of aortic stenosis. 2. Aortic valve planimetry yields a valve area 0.4-0.5 cm squared. 3. Normal appearing left ventricular systolic function. 4. Dilated left atrium. 5. Mild MR. 6. Length of study is abbreviated as this massively obese patient was at risk for airway compromise. Aortic Valve Name Value Normal AV 2D/MM AV Area (Planimetry) 0.3 cm2 Report Signatures
--- NOTE | 2020-12-20 10:37 | SUR.PREOP ---
ARRIVES VIA WC TO [facility] W/ DAUGHTER, EMRE, AT SIDE FOR SCHEDULED DAO W/ ANESTHESIA W/ DR. GARCIAS. DENIES PAIN ON ARRIVAL. IS SOB WITH ANY MOVEMENT. ANXIOUS. ORIENTED TO ROOM, PLAN OF CARE, PROCEDURE. QUESTIONS ANSWERED AND REASSURANCE GIVEN. IV STARTED, VS OBTAINED, CONSENT SIGNED. WILL CONTINUE TO MONITOR.
--- NOTE | 2020-12-20 11:19 | WPDANESEPPF ---
Anes - Initial Pre Proc Eval Procedure: Operation Date: 12/20/20 11:30 Proposed Procedures p Trans Esophageal Echo - Albino Anthony MD Date/Time: 12/20/20 11:19 Surgeon: Albino Anthony MD Pre Op Diagnosis: aortic stenosis Patient Data Age: 74 Gender: F Height: 5 ft 7 in Weight: 156.5 kg Allergies Allergy/AdvReac Type Severity Reaction Status Date / Time hydromorphone Allergy Unknown Unknown Verified 12/20/20 11:39 meperidine Allergy Unknown DIZZINESS, Verified 12/20/20 11:39 N/V Home Medications Medication Instructions Recorded Confirmed Type albuterol sulfate 90 mcg/actuation 2 puff INHALATION Q4H PRN gm 08/12/19 12/20/20 History aerosol inhaler aspirin 81 mg tablet,delayed 81 mg PO DAILY 08/12/19 12/17/20 History release calcium carbonate 500 mg calcium 500 mg PO DAILY 08/12/19 12/17/20 History (1,250 mg) tablet cholecalciferol (vitamin D3) 50 2,000 unit PO DAILY 08/12/19 12/17/20 History mcg (2,000 unit) tablet coenzyme Q10 400 mg capsule 400 mg PO DAILY 08/12/19 12/17/20 History cyanocobalamin (vitamin B-12) 500 500 mcg PO DAILY 08/12/19 12/17/20 History mcg tablet meloxicam 7.5 mg tablet 7.5 mg PO DAILY 08/12/19 12/17/20 History oxybutynin chloride 10 mg 10 mg PO DAILY 08/12/19 12/17/20 History tablet,extended release 24 hr albuterol sulfate 2.5 mg INHALATION BID PRN #180 ml 03/10/20 12/17/20 Rx furosemide 20 mg PO DAILY 04/16/20 12/17/20 History tramadol 50 mg PO Q6H PRN #30 tablet 04/22/20 12/17/20 Rx budesonide-formoterol HFA 160 2 puff INHALATION Q12H #10.2 g 09/15/20 12/17/20 Rx mcg-4.5 mcg/actuation aerosol inhaler ferrous sulfate 324 mg PO DAILY 12/17/20 12/17/20 History metoprolol succinate 50 mg PO DAILY 12/17/20 12/17/20 History potassium chloride [Klor-Con M20] 20 meq PO DAILY 12/20/20 12/20/20 History Patient hx anesthesia problems: none Family hx anesthesia problems: none PMFSH Past Medical History Medical History A-fib Acute blood loss anemia JAQUELINE positive (~2018) Aortic stenosis Arthritis DISH (diffuse idiopathic skeletal hyperostosis) Hematoma and contusion Lymphedema NSIP (nonspecific interstitial pneumonia) Pulmonary hypertension seen by Dr. Arevalo is office Warfarin anticoagulation Surgical History Surgical History H/O hand surgery H/O rectal polypectomy H/O wrist surgery Family History Family History Mother Cerebrovascular accident, Onset Age: 89 Heart disease Father Patient's father is , Onset Age: 80 Sibling Diabetes mellitus Social History Social History Smoking status: Never smoker Second hand tobacco smoke exposure: No Alcohol intake: never Substance use: never Substance use type: does not use Living arrangements: alone Gender identity (if verbalized by the patient): Female Spiritual care concerns: No Anes - Eval Final PreProcedure Day of Procedure 12/20/20 11:19 Patient weight: super morbidly obese Heart: regular rate and rhythm and irregular rhythm Lungs: clear to auscultation Airway: Mallampati scale class III Last oral intake: >/= 8 hours ASA classification: IV Emergent: no Anesthetic plan: proceed Anesthesia type and monitoring: general GIVS and standard monitoring Informed Consent: The patient's anesthetic plan and its attendant risks and benefits were discussed with the patient/family/POA. Questions were solicited and answers provided to the satisfaction of the patient/family/POA.
--- NOTE | 2020-12-20 14:54 | WPDCARDPROC ---
Cardiac Cath Procedure Note Date of procedure:: 12/20/20 Performing physician:: Albino Anthony MD Indication:: Aortic valve stenosis Morbid obesity Brief clinical history:: This is a 74-year-old woman who is morbidly obese and has relatively severe exertional dyspnea with evidence of severe aortic stenosis by echo. In the past this was not felt to be the case by catheterization. To confirm or further evaluate this DAO has been scheduled for today. Procedure Procedure performed:: Transesophageal echocardiogram Sedation/Medication given:: Sedation by the anesthesia service Estimated blood loss:: No blood loss Procedure note:: Patient was brought to the GI lab in the postabsorptive state. The anesthesia service provided sedation. She was placed in the supine position of the oropharynx was sprayed with benzocaine and after sedation with anesthesia transesophageal echo probe was easily placed into the hypopharynx and advanced into the esophagus without any problem. The procedure was relatively brief because of concern regarding airway in this morbidly obese patient. Image quality was very good. The left atrium is markedly dilated. The mitral valve leaflets looked normal. There is mild mitral valve regurgitation seen. The left ventricle is concentrically hypertrophied appears to be normal in size and contracts well. The aortic valve is a trileaflet structure which is severely diseased with fibrocalcific involvement and restricted leaflet motion separation. Aortic valve area was measured and directly visualized in short axis view with a direct planimetry. Multiple measures were made with a average valve area of 0.4 cm2. There was no visible aortic valve regurgitation. The interatrial septum was hyperdynamic with no evidence of a ASD/PFO. Findings:: Critical aortic stenosis as detailed above Conclusion:: 1. 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 There is no aortic regurgitation. 2. Patient is morbidly obese and for this reason anesthesia was used for sedation for this procedure. Albino Anthony MD [facility]
== END 2020-12-20 15:45 | disposition home or self-care (01) ==
PROVIDERS: Visit Provider Specialist
PROC: (CPT 93312; principal; 2020-12-20 11:30)
DX: I35.0 Nonrheumatic aortic (valve) stenosis (principal); I48.91 Unspecified atrial fibrillation; M48.10 Ankylosing hyperostosis [Forestier], site unspecified; I27.20 Pulmonary hypertension, unspecified; I34.0 Nonrheumatic mitral (valve) insufficiency; Z79.01 Long term (current) use of anticoagulants; Z79.51 Long term (current) use of inhaled steroids; Z79.82 Long term (current) use of aspirin
CPT/HCPCS: 93312; 93320; 93325; C9803; J2704; J7040; U0003; U0005

== ENCOUNTER → 2021-06-29 14:32 | Outpatient (CLI) | payer OTHER, SELFPAY ==
--- NOTE | ~2021-06-29 | MM_ITS ---
EXAMINATION: MM screening pippa BI w oswaldo HISTORY: Screening mammogram TECHNIQUE: Craniocaudal and mediolateral oblique 3-D tomosynthesis images were obtained and synthetic 2-D images were generated. CAD analysis was submitted and interpreted. COMPARISON: 06/22/2020, 03/14/2018 bilateral digital screening mammogram examinations BREAST PARENCHYMAL COMPOSITION: The breasts are almost entirely fatty. FINDINGS: Stable 4 mm circumscribed opacity overlying the lateral subareolar area on CC view, not idris nged since 03/14/2018. There is no evidence of suspicious mass, calcification, or architectural distortion to suggest malig susanna in either breast. There has been no suspicious interval change. IMPRESSION: 1. No mammographic evidence of malignancy. 2. Recommend routine screening mammography in one year. BI-RADS Category 2: Benign finding(s). Reviewed, dictated and finalized at location A.
== END ==
PROVIDERS: Visit Provider Obstetrics & Gynecology Gynecology
DX: Z12.31 Encounter for screening mammogram for malignant neoplasm of breast (principal)
CPT/HCPCS: 77063; 77067

== ENCOUNTER → 2021-10-03 14:24 | Outpatient (CLI) | payer OTHER, SELFPAY ==
--- NOTE | ~2021-10-03 | MR_ITS ---
EXAMINATION: MR lumbar spine wo con EXAM DATE: 10/03/2021 15:41 INDICATION: Low back pain . TECHNIQUE: Multi-sequential, multiplanar MR images of the lumbar spine were obtained without contrast . Sagittal T1, T2, T2 fat saturation images. Axial T2 weighted images. There is no prior study for comparison. FINDINGS: There is moderate disc disease L-1-2, L2-3 and L5-S1, mild to moderate at L3-4. The conus m edullaris terminates at the L1/2 level and has normal signal intensity and morphology. There are no focal marrow signal abnormalities suspicious for malignancy or acute fracture. The vertebral bodies a re aligned in the AP dimension. Paraspinal soft tissue is unremarkable. Level by level evaluation: T12-L1: There is a mild diffuse disc bulge. Small superimposed central protrusion. Facet arthropathy: Mild to moderate. Neural foraminal stenosis: Mild left. Central canal stenosis: Mild. L1-L2: Disc does not extend beyond the endplate margin. Facet arthropathy: Moderate. Neural foraminal stenosis: No stenosis. Central canal stenosis: No stenosis. L2-L3: There is a moderate to large diffuse disc bulge with superimposed right central extrusion into the neural foramina. Facet arthropathy: Moderate . Ligamentum flavum enlargement. Neural foraminal stenosis: Moderate to severe right. Central canal stenosis: Moderate. L3-L4: There is a moderate diffuse disc bulge. Facet arthropathy: Mild to moderate. Neural foraminal stenosis: Mild to moderate right, mild left. Central canal stenosis: Mild. L4-L5: There is a moderate diffuse disc bulge. Facet arthropathy: Mild to moderate. Neural foraminal stenosis: Mild to moderate bilateral. Central canal stenosis: Mild to moderate. L5-S1: There is a mild to moderate diffuse disc bulge. Facet arthropathy: Moderate right, mild left. Neural foraminal stenosis: Mild to moderate left, mild right. Central canal stenosis: Mild. IMPRESSION: 1. L2-3 disc bulge and right central extrusion causing moderate to severe right neural foraminal abhinav nosis and moderate central canal stenosis along with bulky facet arthropathy. 2. Less spondylosis other levels. Reviewed, dictated and finalized at location G. AD INSPECTOR IMPRESSION: 1. L2-3 disc bulge and right central extrusion causing moderate to severe righ t neural foraminal stenosis and moderate central canal stenosis along with bulk y facet arthropathy. 2. Less spondylosis other levels.
== END ==
PROVIDERS: Visit Provider Registered Nurse
DX: M51.26 Other intervertebral disc displacement, lumbar region (principal); M47.26 Other spondylosis with radiculopathy, lumbar region
CPT/HCPCS: 72148

== ENCOUNTER 2021-12-01 16:07 | Outpatient (CLI) | payer OTHER, SELFPAY ==
--- NOTE | ~2021-12-01 | CT_ITS ---
EXAMINATION: CT brain wo con DATE: 12/01/2021 16:44 INDICATION: Fall yesterday. Head injury. TECHNIQUE: Computed tomography (CT) of the head was performed without intravenous contrast. The mA wa s adjusted according to patient size. Iterative reconstruction technique was employed. Exam dose: 68 1.00 mGy-cm total exam DLP. COMPARISON: None FINDINGS: Prominent right vertebral artery and prominent bilateral carotid siphon internal carotid ar darius calcifications. There is nonspecific diminished attenuation of cerebral white matter, likely due to chronic small ves demetris ischemic change. No intracranial mass lesion or hemorrhage or recent cerebrovascular accident is evident. Small chroni c basal ganglia lacunar infarcts are suggested. No subdural or epidural hematoma is noted. There is moderate cerebral and cerebellar volume loss. No orbital mass lesion. The included paranasal sinuses and mastoid air cells are normally developed and aerated. No fracture or bone destruction of the cranial vault. IMPRESSION: Cerebral atherosclerosis and chronic small vessel ischemic changes of the cerebral white matter Moderate cerebral and cerebellar volume loss No acute intracranial finding or skull fracture Reviewed, dictated and finalized at [facility]. Reviewed, dictated and finalized at location [facility].
== END 2021-12-01 16:08 | disposition home or self-care (01) ==
LOC: ANHIMG 16:11
PROVIDERS: PCP Registered Nurse; Visit Provider Registered Nurse
DX: S09.90XA Unspecified injury of head, initial encounter (principal); Z51.81 Encounter for therapeutic drug level monitoring; Z79.01 Long term (current) use of anticoagulants; I67.2 Cerebral atherosclerosis
CPT/HCPCS: 70450

== ENCOUNTER 2021-12-04 19:42 | Emergency (ER) | payer OTHER, SELFPAY ==
--- NOTE | ~2021-12-04 | XR_ITS ---
EXAMINATION: XR chest 2V Exam Date/Time: 12/04/2021 19:55 CDT CLINICAL HISTORY: SOB WORSENING TODAY,RECENTLY DIAGNOSED PNA,HX AFIB Comparison: 04/16/2020 RESULT: Lines, tubes, and devices: Cardiac valve replacement. Lungs and pleura: Linear and bibasilar scar/atelectasis. Subsegmental opacities in a lower lobe (pos sibly right), seen in the lateral view. Cardiomediastinal silhouette: Stable cardiomediastinal silhouette, with cardiomegaly and pulmonary a rterial hypertension. Other: No acute osseous or upper abdominal finding. IMPRESSION: Lower lobe atelectasis and/or infection. Chronic findings detailed above. Reviewed, dictated and finalized at [facility].
--- NOTE | ~2021-12-04 | CT_ITS ---
EXAMINATION: CT diagnostic chest wo con DATE: 12/04/2021 21:01 INDICATION: Evaluate for pneumonia, rib fracture. Worsening shortness of breath today, recently diagn osed pneumonia. History of A. fib. TECHNIQUE: Computed tomography (CT) of the chest was performed without intravenous contrast. Automate d exposure control and iterative reconstruction technique were employed. The dose-length product was 875.07 mGy-cm. COMPARISON: X-ray chest, same date. CT chest 09/17/2019. FINDINGS: Thoracic aorta: Mild ectasia, no significant dilation. Lung parenchyma and airways: Significant respiratory motion. Linear scar/atelectasis scattered in the mid and lower lungs. Thoracic inlet, axillae and chest wall: Unremarkable. Mediastinum: Central pulmonary artery dilation as can be seen with pulmonary arterial hypertension. Heart and pericardium: Cardiomegaly. Aortic valve replacement. No pericardial effusion. Coronary artery calcifications: Moderate. Pleura: No pleural thickening, effusion, or mass. Upper abdomen: No significant finding. Bones: Nondisplaced and minimally displaced fractures of the left anterolateral and lateral fifth thr ough 10th ribs, several of which are indeterminate, but several others are acute. IMPRESSION: Nondisplaced and minimally displaced fractures of the left anterolateral and lateral fifth through 10 th ribs, some of which appear acute. Pulmonary findings likely represent scar and atelectasis, althou gh small foci of infection can appear similar in the appropriate clinical context. Reviewed, dictated and finalized at location [facility]. IMPRESSION: Nondisplaced and minimally displaced fractures of the left anterolateral and la teral fifth through 10th ribs, some of which appear acute. Pulmonary findings l ikely represent scar and atelectasis, although small foci of infection can appe ar similar in the appropriate clinical context.
[2021-12-04 19:41] VITALS: BP 142/88; PULSE 73; RESP 22; TEMP 37.1; O2SAT 99
--- NOTE | 2021-12-04 19:48 | ECG_ITS ---
Measurements Intervals [place] Rate: 68 P: ID: 0 QRS: -37 QRSD: 108 T: 35 QT: 406 QTc: 433 Interpretive Statements ATRIAL FIBRILLATION LEFTWARD AXIS Electronically Signed On 12-05-2021 14:26:43 CDT by Albert Dueñas M.D.
[2021-12-04 20:16] VITALS: PULSE 73; O2SAT 100
[2021-12-04 20:22] LABS: Basophils Absolute Auto 0.1 K/mm3 (0.0-0.1); Basophils Percent Auto 0.9 % (0.2-1.2); Eosinophils Absolute Auto 0.3 K/mm3 (0-0.3); Eosinophils Percent Auto 4.2 % (0-4.4); Hematocrit 35.1 % (37.0-47.0); Hemoglobin 10.7 g/dL (12.0-15.0); Immature Granulocyte Absolute 0.04 K/mm3 (0.00-0.031); Immature Granulocyte Percent A 0.5 % (0-0.5); Lymphocytes Absolute Auto 0.99 K/mm3 (0.9-3.2); Lymphocytes Percent Auto 13.1 % (18.3-44.2); Mean Corpuscular HGB Conc 30.5 g/dl (32-36); Mean Corpuscular Hemoglobin 26.7 pg (26-34); Mean Corpuscular Volume 87.5 fl (80-100); Mean Platelet Volume 10.7 fl (7.4-10.4); Monocytes Percent Auto 13.1 % (2.6-8.5); Neutrophils Absolute Auto 5.2 K/mm3 (1.3-6.7); Neutrophils Percent Auto 68.2 % (45.5-73.1); Platelet Count Result 178 k/mm3 (150-375); Red Blood Count 4.01 M/mm3 (4.2-5.4); Red Cell Distribution Width 15.4 % (11.5-14.5); White Blood Count 7.6 K/mm3 (4.5-10.0)
[2021-12-04 20:32] LABS: Alanine Aminotransferase 14 U/L (4-35); Albumin Level 4.1 g/dL (3.5-5.1); Alkaline Phosphatase 73 U/L (38-126); Anion Gap 5 mmol/L (8-16); Aspartate Amino Transferase 21 U/L (14-36); Bilirubin,Total 0.2 mg/dL (0.2-1.3); Blood Urea Nitrogen 34 mg/dL (7-17); Calcium 8.9 mg/dL (8.4-10.2); Carbon Dioxide 31 mmol/L (22-30); Chloride 104 mmol/L (98-107); Estimated Glomerular Filt Rate 54; Glucose 170 mg/dL (65-110); INR 1.3; Lipase 74 U/L (23-300); Potassium 4.3 mmol/L (3.4-5.0); Prothrombin Time 15.5 Seconds (11.1-14.7); Sodium 140 mmol/L (137-145)
[2021-12-04 20:43] LABS: Troponin I < 0.012 ng/mL (0.000-0.034)
--- NOTE | 2021-12-04 21:19 | ED.CHESTPAIN ---
HPI - Chest Pain General Chief Complaint: Chest Pain Stated Complaint: chest pain/sob Time Seen by Provider: 12/04/21 19:52 Source: patient, family and EMS Mode of arrival: EMS Limitations: no limitations History of Present Illness HPI narrative: Patient is 75 years old white female had a fall 4 to 5 days ago slipped in the rain. Landed on the left side of her body, was seen by her family physician, work-up showed pneumonia and started on antibiotic. Was complaining of left chest pain. Over the last 24 hours patient been complaining of pain on the right lower chest, worse with breathing, movement, sneezing, coughing or any activities. Patient denies any fever, chills, nausea or vomiting Related Data Home Medications Medication Instructions Recorded Confirmed albuterol sulfate 90 mcg/actuation 2 puff INHALATION Q4H PRN gm 08/12/19 06/21/21 aerosol inhaler calcium carbonate 500 mg calcium 500 mg PO DAILY 08/12/19 06/21/21 (1,250 mg) tablet cholecalciferol (vitamin D3) 50 2,000 unit PO DAILY 08/12/19 06/21/21 mcg (2,000 unit) tablet coenzyme Q10 400 mg capsule 400 mg PO DAILY 08/12/19 06/21/21 cyanocobalamin (vitamin B-12) 500 500 mcg PO DAILY 08/12/19 06/21/21 mcg tablet meloxicam 7.5 mg tablet 7.5 mg PO DAILY 08/12/19 06/21/21 oxybutynin chloride 10 mg 10 mg PO DAILY 08/12/19 06/21/21 tablet,extended release 24 hr furosemide 20 mg PO DAILY 04/16/20 06/21/21 ferrous sulfate 324 mg PO DAILY 12/17/20 06/21/21 metoprolol succinate 50 mg PO DAILY 12/17/20 06/21/21 potassium chloride [Klor-Con M20] 20 meq PO DAILY 12/20/20 06/21/21 warfarin 2 mg tablet 2 mg PO QMWF 06/21/21 06/21/21 warfarin 2 mg tablet 2 mg PO QTUTHSASU 06/21/21 06/21/21 Allergies Allergy/AdvReac Type Severity Reaction Status Date / Time hydromorphone Allergy Unknown Unknown Verified 06/21/21 15:08 meperidine Allergy Unknown DIZZINESS, Verified 06/21/21 15:08 N/V Review of Systems Review of Systems: CONSTITUTIONAL: Denies fever, chills, or sweats. EYES: Denies visual changes, redness, or discharge. ENT: Denies rhinorrhea, congestion, sore throat, or otalgia. CARDIOVASCULAR: Denies chest pain, palpitations, or edema. RESPIRATORY: Denies cough or dyspnea. GASTROINTESTINAL: Denies abdominal pain, nausea, vomiting, or diarrhea. GENITOURINARY: Denies dysuria or hematuria. SKIN: Denies rash or itching. MUSCULOSKELETAL: Denies back pain, joint pain, or myalgia. NEUROLOGIC: Denies headache, numbness, or weakness. PSYCHIATRIC: Denies anxiety or depression. FOR[facility]LY [facility] Past Medical History Medical History A-fib Acute blood loss anemia JAQUELINE positive (~2018) Aortic stenosis Arthritis DISH (diffuse idiopathic skeletal hyperostosis) Hematoma and contusion Lymphedema NSIP (nonspecific interstitial pneumonia) Pulmonary hypertension seen by Dr. Arevalo is office Warfarin anticoagulation Surgical History Surgical History H/O hand surgery H/O rectal polypectomy H/O wrist surgery Family History Family History Mother Cerebrovascular accident, Onset Age: 89 Heart disease Father Patient's father is , Onset Age: 80 Sibling Diabetes mellitus Social History Social History Smoking status: Never smoker Second hand tobacco smoke exposure: No Alcohol intake: never Substance use: never Substance use type: does not use Gender identity (if verbalized by the patient): Female Spiritual care concerns: No Exam Narrative: General appearance: Well-developed, well-nourished, morbidly obese, daughters at the bedside Skin: Normal color Head: Normocephalic, nontraumatic Eyes: Clear conjunctiva ENT: Oropharynx normal, ears normal, nose normal Neck: Supple, nontender Chest and respiratory: Airway patent, severe
[2021-12-04] MEDS: MORPHINE SULFATE (*CRX) 4 MG/ML INJ IV PUSH (21:39)
[2021-12-04] MEDS: ONDANSETRON INJ 4 MG/2 ML VIAL IV PUSH (21:40)
[2021-12-04 22:45] VITALS: BP 136/74; PULSE 84; RESP 20; O2SAT 99
[2021-12-05 00:03] LABS: Troponin I < 0.012 ng/mL (0.000-0.034)
[2021-12-05 00:05] VITALS: BP 120/63; PULSE 77; RESP 18; O2SAT 100
[2021-12-05 01:11] VITALS: BP 120/60; PULSE 63; RESP 18; O2SAT 100
[2021-12-05 02:44] LABS: Troponin I < 0.012 ng/mL (0.000-0.034)
[2021-12-05 02:58] VITALS: BP 112/59; PULSE 81; RESP 18; O2SAT 99
[2021-12-05] MEDS: MORPHINE SULFATE (*CRX) 4 MG/ML INJ IV PUSH (03:01)
== END 2021-12-05 03:21 | disposition short-term general hospital (02) ==
PROVIDERS: Emergency Medicine; Emergency Provider Emergency Medicine; PCP Registered Nurse
DX: S22.42XA Multiple fractures of ribs, left side, initial encounter for closed fracture (principal); J18.9 Pneumonia, unspecified organism; I48.91 Unspecified atrial fibrillation; I35.0 Nonrheumatic aortic (valve) stenosis; M19.90 Unspecified osteoarthritis, unspecified site; M48.10 Ankylosing hyperostosis [Forestier], site unspecified; I27.20 Pulmonary hypertension, unspecified; I89.0 Lymphedema, not elsewhere classified; E66.01 Morbid (severe) obesity due to excess calories; Z79.01 Long term (current) use of anticoagulants; Z87.19 Personal history of other diseases of the digestive system; W01.0XXA Fall on same level from slipping, tripping and stumbling without subsequent striking against object, initial encounter
CPT/HCPCS: 36415; 71046; 71250; 80053; 83690; 84484; 85025; 85610; 85730; 93005; 96374; 96375; 96376; 99285; J2270; J2405

== ENCOUNTER 2022-04-07 04:48 | Emergency (ER) | payer OTHER, SELFPAY ==
[2022-04-07 04:48] VITALS: BP 127/68; PULSE 83; RESP 16; TEMP 36.4; O2SAT 96
--- NOTE | 2022-04-07 05:04 | ED.WOUNDLAC ---
HPI - Wound/Laceration General Chief Complaint: Wound/Laceration Stated Complaint: LEFT LOWER LEG PAIN & LAC Time Seen by Provider: 04/07/22 04:53 History of Present Illness HPI narrative: Patient is a 76-year-old female who presents ER with laceration to left warren. Patient was at home sitting on the toilet when she fell asleep. She woke up and tried to stand up and her legs were weak and she fell down. She did not strike her head or lose consciousness. She suffered laceration. Unknown last tetanus shot. No additional concerns. Related Data Home Medications Medication Instructions Recorded Confirmed albuterol sulfate 90 mcg/actuation 2 puff inhalation Q4H PRN 08/12/19 01/03/22 aerosol inhaler (ProAir HFA) Shortness Of Breath calcium carbonate 500 mg calcium 500 mg PO DAILY 08/12/19 01/03/22 (1,250 mg) tablet cholecalciferol (vitamin D3) 50 2,000 unit PO DAILY 08/12/19 01/03/22 mcg (2,000 unit) tablet coenzyme Q10 400 mg capsule (Co 400 mg PO DAILY 08/12/19 01/03/22 Q-10) cyanocobalamin (vitamin B-12) 500 500 mcg PO DAILY 08/12/19 01/03/22 mcg tablet (Vitamin B-12) ferrous sulfate 325 mg (65 mg 324 mg PO DAILY 12/17/20 01/03/22 iron) tablet metoprolol succinate 50 mg 50 mg PO DAILY 12/17/20 01/03/22 tablet,extended release 24 hr warfarin 2 mg tablet 2 mg PO QMWF 06/21/21 01/03/22 warfarin 2 mg tablet 2 mg PO QTUTHSASU 06/21/21 01/03/22 furosemide 20 mg tablet 60 mg PO DAILY 01/03/22 01/03/22 potassium chloride 20 mEq 20 meq PO BID 01/03/22 01/03/22 tablet,extended release(part/cryst) (Klor-Con M) Allergies Allergy/AdvReac Type Severity Reaction Status Date / Time hydromorphone Allergy Unknown Unknown Verified 01/03/22 16:13 meperidine Allergy Unknown DIZZINESS, Verified 01/03/22 16:13 N/V Review of Systems Constitutional: Constitutional: Denies chills and Denies fever(s) Musculoskeletal: Musculoskeletal: Denies arthralgias, Denies joint swelling and Denies muscle cramps Integumentary/Breasts: Skin/Breast: Denies erythema and Denies rash Comments: Chin laceration and contusion. Neurologic: Denies dizziness, Denies syncope, Denies headache(s), Denies focal weakness and Denies numbness PMFSH Past Medical History Medical History A-fib Acute blood loss anemia JAQUELINE positive (~2018) Aortic stenosis Arthritis DISH (diffuse idiopathic skeletal hyperostosis) Hematoma and contusion Lymphedema NSIP (nonspecific interstitial pneumonia) Pulmonary hypertension seen by Dr. Arevalo is office Warfarin anticoagulation Surgical History Surgical History H/O hand surgery H/O rectal polypectomy H/O wrist surgery Family History Family History Mother Cerebrovascular accident, Onset Age: 89 Heart disease Father Patient's father is , Onset Age: 80 Sibling Diabetes mellitus Social History Social History Smoking status: Never smoker Second hand tobacco smoke exposure: No Alcohol intake: never Substance use: never Substance use type: does not use Gender identity (if verbalized by the patient): Female Spiritual care concerns: No Exam Narrative: GENERAL: Well-appearing, well-nourished, and in no acute distress. HEAD: Normocephalic, atraumatic. EYES: PERRL and EOMI. ENT: Mucous membranes moist. CHEST: Clear to auscultation. No respiratory distress. HEART: Regular rate and rhythm. Normal peripheral pulses. EXTREMITIES: Normal range of motion. Massive lymphedema bilateral lower extremities right greater than left. Wraps present on the right side. Patient has laceration to her lower left leg. SKIN: Warm, dry, no rash. 3.5 cm superficial laceration left lower warren. No contamination. Above that there is a sma
[2022-04-07] MEDS: TETANUS,DIPHTHERIA,AC PERTUSSIS ADULT (0.5 ML) BOOSTRIX IM (05:44)
== END 2022-04-07 06:20 | disposition home or self-care (01) ==
PROVIDERS: Emergency Provider Emergency Medicine; PCP Registered Nurse
DX: S81.812A Laceration without foreign body, left lower leg, initial encounter (principal); Z23 Encounter for immunization; I48.91 Unspecified atrial fibrillation; I35.0 Nonrheumatic aortic (valve) stenosis; I27.20 Pulmonary hypertension, unspecified; I89.0 Lymphedema, not elsewhere classified; M19.90 Unspecified osteoarthritis, unspecified site; Z87.19 Personal history of other diseases of the digestive system; Z79.01 Long term (current) use of anticoagulants; W18.11XA Fall from or off toilet without subsequent striking against object, initial encounter
CPT/HCPCS: 12002; 90471; 90715; 99282

== ENCOUNTER 2022-04-28 09:30 | Outpatient (RCR) | payer OTHER, SELFPAY ==
--- NOTE | 2022-02-27 16:18 | PTOPEVAL ---
PHYSICAL THERAPY EVALUATION AND PLAN OF CARE 02-27-22 Thank you for referring Leigha Wetzel to [facility].? She is scheduled to be seen for therapy? 3 x/week for 5 weeks. Please review, sign, date and return this plan of care ANNETTE. I agree with and certify that the following plan of care is medically necessary. Referring Physician Date Attending Provider: Marisela Alan NP Source of Past Medical History Recalled from Previous Visit, Confirmed with Patient/Family Neurological History Hx Neurological Disorders No Significant History Cardiovascular History Hx Atrial Fibrillation Yes Hx Cardiac Catheterization Yes Hx Valve Replacement Yes: aortic valve replacement Respiratory History Hx Sleep Apnea Yes: CPAP for sleeping Hx Other Respiratory Disorders Yes: SOB-with exertion; chronic cough Gastrointestinal History Hx Gastrointestinal Disorders No Significant History Genitourinary History Hx Other Genitourinary Disorders Yes: bladder incontinence Musculoskeletal History Hx Arthritis Yes: B knees; overall body Hx Back Pain Yes: sciatica R LE-going to chiropractor Hx Orthopedic Surgery Yes: B carpal tunnel Hx Other Musculoskeletal Disorders Yes: B LE lymphedema Hematological History Hx Anemia Yes Endocrine History Hx Endocrine Disorders No Significant History HEENT History Hx HEENT Disorders No Significant History Integumentary History Hx Skin Disorders No Significant History Reproductive History Hx Reproductive Disorders No Significant History Psychosocial History Hx Depression Yes Pain History Has Past Pain Affected Your Daily Life Yes: chronic knee pain History of Long-Term Prescription Pain Yes Medication Use (Opiates) Anesthesia History Hx Post-Op Nausea/Vomiting Yes Evaluation Information Problem Diagnosis B LE lymphedema Onset one year ago Prior Level of Function Activity Level (Last 3 Months) Activity of Daily Living Ability Independent Indoor/Home Mobility Independent Community Mobility Independent Functional Cognition (Planning, Shopping Independent , Taking Medications) Cooking Yes Cleaning Yes Laundry Yes Shopping Yes Driving Yes Home Setting Home Type House Living Situation Alone Support Available Local Family Support Mobility Assistive Devices (Used Last 3 Cane Months) Comments Additional Prior Level of Function daughters live near by and Comments assist PRN and with yard work;
--- NOTE | 2022-03-30 10:58 | PCPTNOTE ---
To Whom it may concern: Ms. Wetzel requires compression garments for her R and L: foot, lower leg, knee and thigh to manage the chronic lymphedema of her legs. She is currently receiving skilled PT Lymphedema treatments to decrease the swelling and size of her legs. The recommended garments for her are: R and L large Farrow Wrap Strong Thighpieces; Farrow leg piece for R leg large regular and for L small tall; and foot pieces R and L small regular. If there are any further questions, please contact me at [phone]. Devora Hines, PT, CLT
--- NOTE | 2022-03-30 11:50 | PTOPEVAL ---
PHYSICAL THERAPY REEVALUATION AND UPDATED PLAN OF CARE 03-30-22 Refer to the clinical summary below, for her status today, compared to the initial evaluation. The goals were partially achieved. Continue PT treatment 3x/wk for 4 weeks. Thank you for referring Leigha Wetzel to [facility].? Please review, sign, date and return this updated plan of care ANNETTE. I agree with and certify that the following plan of care is medically necessary. Referring Physician Date Referring Provider: Marisela Alan NP Pain Assessment Pain Scale Pain Scale Used Numeric (1 - 10) Self Report Pain Assessment Bilateral Leg(s) Reported Pain Level 4 Pain Description Aching,Burning,Dull Pain Frequency Chronic,Continuous Interventions Used Interventions Used By Clinicians Education Gross Lower Extremity Strength functional strength of LE's: - labored and multiple attempts with sit to stand transfer and use of B UE's; -requires assist with LE on/ off mat for supine/sit transfer - sitting: knee extension to 0' R 12/ L 10 reps; hip flexion R x 5/ L x 4 reps Skin Inspection Location Left Lower Extremity,Right Lower Extremity Tissue Texture Firm Lymphedema Stage II Skin Inspection Comment R LE: lower leg redness with papillomas bottom of leg up to 32 cm with fibrotic tissue; edema over toes, dorsum of foot and ankle; medial knee lobule fibrotic and papillomas L LE: lower leg redness with papillomas, bottom of leg up to ~24 cm with fibrotic tissue ; edema and redness over toes and dorsum of foot; edema over medial and lateral ankle; medial knee increase edema LE Circumferential Measurement Right LE Lymphedema Side Right Metatarsal Heads (cm) 26.5 Figure 8 of Ankle (cm) 60 8 cm From Bottom of Foot (cm) 32.5 12 cm From Bottom of Foot (cm) 33.5 16 cm From Bottom of Foot (cm) 40.5 20 cm From Bottom of Foot (cm) 44 24 cm From Bottom of Foot (cm) 48 28 cm From Bottom of Foot (cm) 50.1 32 cm From Bottom of Foot (cm) 57 36 cm From Bottom of Foot (cm) 59.8 40 cm From Bottom of Foot (cm) 64.5 44 cm From Bottom of Foot (cm) 68 48 cm From Bottom of Foot (cm) 70
--- NOTE | 2022-04-28 11:59 | PTOPEVAL ---
PHYSICAL THERAPY RE-EVALUATION/ HOLD 04-28-22 Refer to the clinical summary below, for her status today, compared to the last reevaluation. Leigha was given the info to order her compression garments 4 weeks ago and has not ordered them yet. Her R leg is stable and needs the compression garment to maintain her lymphedema. Further skilled treatment is not indicated for her R LE. Treatment for her L LE was stopped, due to falling and having a wound with stitches over L anterior leg. She has a referral for wound care and is going next week. PLAN: HOLD PT at this time; she is to obtain the compression garments for the R LE and go to the wound clinic for her L LE. When wound treatment is completed on her L LE, a new PT order will be required for her to return for treatment of her L LE. Thank you for referring Leigha Wetzel to [facility].? Please review, sign, date and return this updated plan of care ANNETTE. I agree with and certify that the following plan of care is medically necessary. Referring Physician Date Attending Provider: Marisela Alan NP Subjective: Leigha reports: legs really Query Text:As Reported By Patient/ hurting today due to the Family weather changing; going to wound care next week for L leg wounds; have not ordered the garments for her R leg, working with insurance to check about coverage--they have sent it out for review and will take up to 14 days for an answer about coverage or not; (she was given the info to order the garments 03-29-22); fearful that her legs will swell more with the heat and not coming for therapy; Pain Assessment Pain Scale Pain Scale Used Numeric (1 - 10) Self Report Pain Assessment Bilateral Leg(s) Reported Pain Level 2 Pain Description Aching,Soreness Pain Frequency Chronic,Continuous Other Pain Description due to changes in weather, knees really hurting Pain Score Pain Score 2: Self Report Interventions Used Interventions Used By Clinicians Education Gross Lower Extremity Strength functional strength testing of LE's: in sitting: - knee extension R x 20/ L x 13 reps - hip flexion R x 8 reps/L 6 reps--verbal cues to NOT lean posterior with trunk to assist with lifting leg; -------- requires assist with LE's on
--- NOTE | 2022-04-28 16:25 | PCPTNOTE ---
HOLD PT at this time--pt to go to wound care for L lower leg wounds. Will require a new order to resume PT treatment. Will keep chart open for 4 weeks.
--- NOTE | 2022-06-12 15:52 | PCPTNOTE ---
PHYSICAL THERAPY DISCHARGE 06-12-22 Attending Provider: Marisela Alan NP Patient:Leigha Wetzel Date of :1945 Ms. Wetzel has not returned for any further treatments since the reevaluation on 04/28/2022, therefore she will be discharged at this time. Refer to that report for her status as the last appointment. Thank you for referring Leigha to [facility].
== END 2022-05-25 12:30 | disposition home or self-care (01) ==
LOC: ANHPT 09:30
PROVIDERS: PCP Registered Nurse; Referring Provider Registered Nurse; Visit Provider Registered Nurse
DX: I89.0 Lymphedema, not elsewhere classified (principal)
CPT/HCPCS: 29581; 97140; 97161; 97530

== ENCOUNTER 2023-06-19 12:27 | Observation (INO) | payer OTHER, SELFPAY ==
[2023-06-19] VITALS (15 sets, daily range): BP systolic 115–134; BP diastolic 51–99; PULSE 69–104; RESP 15–22; TEMP 36.1–36.6; O2SAT 94–100; BMI 53.7
[2023-06-19 13:42] LABS: Basophils Absolute Auto 0.1 K/mm3 (0.0-0.1); Basophils Percent Auto 0.7 % (0.2-1.2); Eosinophils Absolute Auto 0.2 K/mm3 (0-0.3); Eosinophils Percent Auto 2.2 % (0-4.4); Hematocrit 36.3 % (37.0-47.0); Hemoglobin 10.6 g/dL (12.0-15.0); Immature Granulocyte Absolute 0.05 K/mm3 (0.00-0.031); Immature Granulocyte Percent A 0.5 % (0-0.5); Lymphocytes Percent Auto 8.9 % (18.3-44.2); Mean Corpuscular HGB Conc 29.2 g/dl (32-36); Mean Corpuscular Volume 82.1 fl (80-100); Mean Platelet Volume 11.2 fl (7.4-10.4); Monocytes Absolute Auto 1.1 K/mm3 (0.1-0.6); Monocytes Percent Auto 10.5 % (2.6-8.5); Neutrophils Absolute Auto 7.8 K/mm3 (1.3-6.7); Neutrophils Percent Auto 77.2 % (45.5-73.1); Platelet Count Result 238 k/mm3 (150-375); Red Blood Count 4.42 M/mm3 (4.2-5.4); White Blood Count 10.1 K/mm3 (4.5-10.0)
[2023-06-19 13:55] LABS: Alanine Aminotransferase 15 U/L (6-35); Albumin Level 4.4 g/dL (3.5-5.1); Alkaline Phosphatase 80 U/L (38-126); Anion Gap 10 mmol/L (8-16); Aspartate Amino Transferase 19 U/L (14-36); Bilirubin,Total 0.5 mg/dL (0.2-1.3); Blood Urea Nitrogen 28 mg/dL (7-17); Calcium 9.2 mg/dL (8.4-10.2); Carbon Dioxide 29 mmol/L (22-30); Chloride 99 mmol/L (98-107); Estimated CRCL calculation 70 ml/min; Estimated Glomerular Filt Rate > 60; Glucose 133 mg/dL (65-110); Sodium 138 mmol/L (137-145)
[2023-06-19] MEDS: MORPHINE SULFATE (*CRX) 2 MG/ML INJ IV PUSH (14:33)
--- NOTE | 2023-06-19 14:47 | ED.GENADULT ---
HPI - General Adult General Chief complaint: Wound/Laceration Stated complaint: R FOOT PAIN REDNESS,SWELLING Time Seen by Provider: 06/19/23 14:14 History of Present Illness HPI narrative: Patient is a 77-year-old female who presents ER with pain and redness to the right lower extremity. Ongoing over the last week. Has been on doxycycline. Denies fevers or chills or sweats. Has exquisite pain to palpation. She reports she is ambulatory at baseline. She is also anticoagulated on Coumadin. No recent trauma. Patient has chronic lymphedema and weeping to the leg. Related Data Home Medications Medication Instructions Recorded Confirmed albuterol sulfate 90 mcg/actuation 2 puff inhalation Q4H PRN 08/12/19 12/21/22 aerosol inhaler (ProAir HFA) Shortness Of Breath calcium carbonate 500 mg calcium 500 mg PO DAILY 08/12/19 12/21/22 (1,250 mg) tablet cholecalciferol (vitamin D3) 50 2,000 unit PO DAILY 08/12/19 12/21/22 mcg (2,000 unit) tablet coenzyme Q10 400 mg capsule (Co 400 mg PO DAILY 08/12/19 12/21/22 Q-10) cyanocobalamin (vitamin B-12) 500 500 mcg PO DAILY 08/12/19 12/21/22 mcg tablet (Vitamin B-12) ferrous sulfate 325 mg (65 mg 324 mg PO DAILY 12/17/20 12/21/22 iron) tablet metoprolol succinate 50 mg 50 mg PO DAILY 12/17/20 12/21/22 tablet,extended release 24 hr furosemide 20 mg tablet 60 mg PO DAILY 01/03/22 12/21/22 potassium chloride 20 mEq 20 meq PO BID 01/03/22 12/21/22 tablet,extended release(part/cryst) (Klor-Con M) warfarin 2 mg tablet 5 mg PO QTUTH 09/26/22 12/21/22 warfarin 2 mg tablet 8 mg PO .[id number] 09/26/22 12/21/22 Allergies Allergy/AdvReac Type Severity Reaction Status Date / Time hydromorphone Allergy Unknown Unknown Verified 06/19/23 13:25 meperidine Allergy Unknown DIZZINESS, Verified 06/19/23 13:25 N/V Review of Systems Review of Systems: All systems reviewed & are unremarkable except as noted in HPI and below Constitutional: Constitutional: Denies chills, Denies fatigue and Denies fever(s) Cardiovascular: Cardiovascular: Denies chest pain, Denies rapid heart rate and Denies radiating jaw, neck or arm pain Respiratory: Respiratory: Denies cough and Denies dyspnea Gastrointestinal: Gastrointestinal: Denies abdominal pain, Denies nausea and Denies vomiting Integumentary/Breasts: Skin/Breast: Reports erythema and Reports rash PMFSH Past Medical History Medical History (Updated 06/19/23 @ 17:43 by Jimbo Ackerman MD) JAQUEILNE positive (2018) Aortic stenosis Arthritis Atrial fibrillation Diffuse idiopathic skeletal hyperostosis Lymphedema Nonspecific interstitial pneumonia Obstructive sleep apnea on CPAP Osteoarthritis Pulmonary hypertension Warfarin anticoagulation Surgical History Surgical History (Updated 06/19/23 @ 16:54 by Sue Reyes PA-C) History of aortic valve replacement with bioprosthetic valve History of bilateral carpal tunnel release History of cardiac catheterization History of colonoscopy with polypectomy History of dilatation and curettage Family History Family History Mother Cerebrovascular accident, Onset Age: 89 Heart disease Father Patient's father is , Onset Age: 80 Sibling Diabetes mellitus Social History Social History (Updated 06/19/23 @ 16:55 by Sue Reyes PA-C) Social History: Surrogate medical decision maker: Yudelka Cruz, daughter. Code status: Full code. Smoking status: Never smoker Second hand tobacco smoke exposure: No Alcohol intake: never Substance use: never Substance use type: does not use Spiritual care concerns: No Exam Narrative: GENERAL: Chronically ill-appearing, well-nourished, and in no acute distress. HEAD: Normocephalic, atraumatic. ENT: Mucous membranes moist. NECK: Supple. CHEST: Clear to auscultation. No respiratory distress. HEART: Regular rate and rhythm.
[2023-06-19 14:58] LABS: INR 1.9; Partial Thromboplastin Time 38.9 SECONDS (22.3-36.8); Prothrombin Time 23.4 Seconds (11.1-14.7)
[2023-06-19] MEDS: ceFAZolin 1 GM/NS 50 ML 1 GM/50 ML BAG IVPB ×2 (14:58→23:29)
--- NOTE | 2023-06-19 16:46 | PM.IMHP ---
H&P: HPI History of Present Illness Date/Time: 06/19/23 16:30 Chief Complaint: Pain and redness in right leg. Narrative: This is a 77-year-old female with chronic lymphedema, atrial fibrillation on chronic anticoagulation, pulmonary hypertension, iron deficiency anemia, and other comorbidities who presented to the emergency department via EMS from home for evaluation of pain and redness in the right leg. The patient provides the following history. She saw her heel edge inker machine last who remarked that the patient's right lower leg seemed to be more red than usual. She was prescribed doxycycline for possible cellulitis however she was unable to have that filled until Sunday; She has had at least 3 doses of the antibiotic. She describes an excruciating pain in the right foot, almost like a hot poker. She endorses chills ?I feel like an iceberg but she is unaware of fever. Her appetite has been okay and she denies nausea and vomiting. This morning home health came in to change her wraps in her legs which they do 3 times a week, and it was noted that the leg was more swollen, red, and was weeping. She was then encouraged to come in for evaluation. She was afebrile on arrival to the ED with stable vital signs. White blood cell count was a bit elevated 10.8 in her other labs were pretty unremarkable. She was started on cefazolin for right lower extremity cellulitis and she is being admitted in this setting for further care. Review of Systems Review of Systems: Twelve systems were reviewed and are negative except for as per HPI. [facility] Past Medical History Medical History JAQUELINE positive (2018) Aortic stenosis Arthritis Atrial fibrillation Diffuse idiopathic skeletal hyperostosis Lymphedema Nonspecific interstitial pneumonia Obstructive sleep apnea on CPAP Osteoarthritis Pulmonary hypertension Warfarin anticoagulation Surgical History Surgical History History of aortic valve replacement with bioprosthetic valve History of bilateral carpal tunnel release History of cardiac catheterization History of colonoscopy with polypectomy History of dilatation and curettage Family History Family History Mother Cerebrovascular accident, Onset Age: 89 Heart disease Father Patient's father is , Onset Age: 80 Sibling Diabetes mellitus Social History Social History Social History: Surrogate medical decision maker: Yudelka Cruz, daughter. Code status: Full code. Smoking status: Never smoker Second hand tobacco smoke exposure: No Alcohol intake: never Substance use: never Substance use type: does not use Lack of Transportation: No Lack of Food: Never True Current Housing: I Have Housing Concerned About Future Housing: No Difficulty Paying Gas/Electric Bills: No Difficulty Paying for Meds: No Currently Unemployed: No Education: Don't Know Difficulty w/ Childcare or Family Care: No Spiritual care concerns: No Meds Home Medications and Allergies Home Medications Medication Instructions Recorded Confirmed Type albuterol sulfate 90 mcg/actuation 2 puff inhalation Q4H PRN 08/12/19 06/19/23 History aerosol inhaler (ProAir HFA) Shortness Of Breath calcium carbonate 500 mg calcium 500 mg PO DAILY 08/12/19 06/19/23 History (1,250 mg) tablet cholecalciferol (vitamin D3) 50 2,000 unit PO DAILY 08/12/19 06/19/23 History mcg (2,000 unit) tablet coenzyme Q10 400 mg capsule (Co 400 mg PO DAILY 08/12/19 06/19/23 History Q-10) cyanocobalamin (vitamin B-12) 500 500 mcg PO DAILY 08/12/19 06/19/23 History mcg tablet (Vitamin B-12) tramadol 50 mg tablet 50 mg PO Q6H PRN pain #30 tabs 04/22/20 06/19/23 Rx ferrous sulfate 325 mg (65 mg 324 m
[2023-06-19] MEDS: HYDROcodone/acetaminophen (*CRX) 5-325 MG TABLET 1 TAB PO (20:46)
[2023-06-19] MEDS: ATORVASTATIN 10 MG TABLET PO (23:28)
[2023-06-19] MEDS: traMADol HCL (*CRX) 50 MG TABLET PO (23:28)
[2023-06-20] MEDS: HYDROcodone/acetaminophen (*CRX) 5-325 MG TABLET 1 TAB PO ×2 (04:35→16:33)
[2023-06-20] MEDS: ceFAZolin 1 GM/NS 50 ML 1 GM/50 ML BAG IVPB ×3 (04:35→21:06)
[2023-06-20 06:00] VITALS: BP 116/61; PULSE 72; RESP 14; TEMP 36.1; O2SAT 97
[2023-06-20 07:30] VITALS: PULSE 82; RESP 18; O2SAT 95
[2023-06-20] MEDS: BUDESONIDE RESPULE NEB 0.5 MG/2 ML AMP INHALATION (07:30)
[2023-06-20 07:40] VITALS: PULSE 84; RESP 18
[2023-06-20] MEDS: FUROSEMIDE 20 MG TABLET 60 MG PO (08:33)
[2023-06-20] MEDS: CALCIUM CARBONATE (OSCAL) 500 MG TABLET PO (08:33)
[2023-06-20] MEDS: POTASSIUM CHLORIDE 20 MEQ ER TABLET PO ×2 (08:34→16:33)
[2023-06-20] MEDS: CHOLECALCIFEROL 1,000 UNITS TABLET 2000 UNITS PO (08:34)
[2023-06-20] MEDS: CYANOCOBALAMIN 500 MCG TABLET PO (08:34)
[2023-06-20] MEDS: FERROUS SULFATE 325 MG TABLET DR BY MOUTH (08:34)
[2023-06-20 08:35] VITALS: PULSE 72
[2023-06-20] MEDS: METOPROLOL SUCCINATE EXT REL 50 MG TABCR PO (08:35)
[2023-06-20] MEDS: traMADol HCL (*CRX) 50 MG TABLET PO ×2 (08:35→21:05)
--- NOTE | 2023-06-20 09:50 | PM.IMPN ---
Progress Note: A&P Assessment and Plan (1) Cellulitis of right lower extremity: Code(s): L03.115 - Cellulitis of right lower limb Status: Acute Assessment and Plan: 06/20/2023: RLE warm to touch, errythema present that extends up to knee, tender to touch, with considerable swelling in setting of chronic lymphedema, weeping area noted around ankle Seen by school bus driver/teacher assistant last started her on doxycycline oral. Patient received 3 doses prior to the admission. Continue IV cefazolin, will touch base with pharmacy for duration of IV antibiotic course. Blood cultures pending Continue elevation PT and OT evaluation (2) Lymphedema: Code(s): I89.0 - Lymphedema, not elsewhere classified Status: Chronic Assessment and Plan: 06/20/23: Continue elevation of right lower extremity PT and OT evaluation Continue with lymphedema wrap to left lower extremity, will hold off on the lymphedema wrap to the right lower extremity due to cellulitis (3) Atrial fibrillation: Code(s): I48.91 - Unspecified atrial fibrillation Status: Acute Assessment and Plan: 06/20/23: Continue warfarin and metoprolol Rate controlled (4) Warfarin anticoagulation: Code(s): Z79.01 - assisted (current) use of anticoagulants Status: Acute Assessment and Plan: 06/20/23: Continue warfarin Monitor labs, INR 1.9 Time Spent With Patient Time with patient: Greater than 35 minutes Subjective Date/time seen: 06/20/23 09:50 Interval history: This is a 77 year old female who presented to the ER on 06/19/23 with complaints of pain and redness in the right leg. She was seen by school bus driver/teacher assistant last who prescribed doxycycline for a possible cellulitis which she filled on Sunday. She had 3 doses of antibiotics when home health came in to change her leg wraps when they noted her leg to be more swollen, red, and was weeping. She presented to hospital for further workup. WBC on admission was 10.1, absolute neuts 7.8. Blood cultures obtained and are pending. Patient was started on IV Cefazolin. 06/20/2023: On exam today patient alert and oriented x4. She complains of right lower extremity pain which is 5/10 on pain scale. She has lymphedema to bilateral lower extremity right greater than the left. She normally wears lymphedema wraps but currently only has a left lymphedema wraps on today. Right lower extremity warm to the touch, with erythema and swelling present. She does have good capillary refill. She denies any numbness or tingling to her lower extremities. Labs today revealed WBC of 10.1, hemoglobin 10.6, hematocrit 36.3, absolute neutrophil 7.8, PTT 23.4, INR 1.9, PTT 38.9, potassium 4.0, BUN 28, creatinine 0.9, lactic acid 1.0. Liver enzymes normal. Blood cultures pending. Review of Systems Review of Systems: Twelve systems were reviewed and are negative except for as per HPI. Constitutional: Constitutional: Reports as per HPI and Reports no additional constitutional complaints Eyes: Eyes: Reports as per HPI and Reports no additional eye complaints ENT: Reports system reviewed and no additional complaints, except as documented and Reports as per HPI Cardiovascular: Cardiovascular: Reports as per HPI and Reports no additional cardiovascular complaints Respiratory: Respiratory: Reports as per HPI and Reports no additional respiratory complaints Gastrointestinal: Gastrointestinal: Reports as per HPI and Reports no additional gastrointestinal complaints Genitourinary: Genitourinary: Reports no additional female genitourinary complaints and Reports as per HPI Musculoskeletal: Musculoskeletal: Reports no additional musculoskeletal complaints and Reports as per HPI Integumentary/Breasts: Skin/Breast: Reports system reviewed and no additional complaints, except as docu and Reports as per HPI Neurologic: Reports system reviewed and no additional complaints, except as documented a
[2023-06-20 14:00] VITALS: BP 115/57; PULSE 74; RESP 16; TEMP 37.3; O2SAT 92
[2023-06-20] MEDS: WARFARIN (*PBKC) 4 MG TABLET 8 MG PO (16:33)
[2023-06-20] MEDS: ATORVASTATIN 10 MG TABLET PO (21:05)
[2023-06-20 22:00] VITALS: BP 125/58; PULSE 61; RESP 20; TEMP 36.9; O2SAT 92
[2023-06-21] VITALS (7 sets, daily range): BP systolic 119–127; BP diastolic 61–69; PULSE 60–85; RESP 18–20; TEMP 36.3–37.2; O2SAT 90–95
[2023-06-21] MEDS: ceFAZolin 1 GM/NS 50 ML 1 GM/50 ML BAG IVPB ×3 (05:26→20:17)
[2023-06-21] MEDS: traMADol HCL (*CRX) 50 MG TABLET PO ×2 (05:29→16:19)
[2023-06-21 06:29] LABS: Basophils Absolute Auto 0.1 K/mm3 (0.0-0.1); Basophils Percent Auto 0.7 % (0.2-1.2); Eosinophils Absolute Auto 0.2 K/mm3 (0-0.3); Eosinophils Percent Auto 1.6 % (0-4.4); Hematocrit 33.1 % (37.0-47.0); Hemoglobin 9.5 g/dL (12.0-15.0); Immature Granulocyte Absolute 0.02 K/mm3 (0.00-0.031); Immature Granulocyte Percent A 0.2 % (0-0.5); Lymphocytes Absolute Auto 0.53 K/mm3 (0.9-3.2); Lymphocytes Percent Auto 5.6 % (18.3-44.2); Mean Corpuscular HGB Conc 28.7 g/dl (32-36); Mean Corpuscular Hemoglobin 23.8 pg (26-34); Mean Platelet Volume 10.9 fl (7.4-10.4); Monocytes Percent Auto 10.5 % (2.6-8.5); Neutrophils Absolute Auto 7.7 K/mm3 (1.3-6.7); Neutrophils Percent Auto 81.4 % (45.5-73.1); Platelet Count Result 209 k/mm3 (150-375); Red Blood Count 3.99 M/mm3 (4.2-5.4); Red Cell Distribution Width 18.7 % (11.5-14.5); White Blood Count 9.5 K/mm3 (4.5-10.0)
[2023-06-21 06:50] LABS: Anion Gap 1 mmol/L (8-16); Anisocytosis 1+ (NORMAL); Blood Urea Nitrogen 23 mg/dL (7-17); Calcium 8.5 mg/dL (8.4-10.2); Carbon Dioxide 31 mmol/L (22-30); Chloride 104 mmol/L (98-107); Estimated CRCL calculation 88 ml/min; Estimated Glomerular Filt Rate > 60; Glucose 136 mg/dL (65-110); Hypochromasia 2+ (NORMAL); Platelet Estimate Adequate (Adequate); Poikilocytosis 1+ (NORMAL); Potassium 4.5 mmol/L (3.4-5.0); Schistocytes None Seen (NORMAL); Sodium 136 mmol/L (137-145)
[2023-06-21] MEDS: BUDESONIDE RESPULE NEB 0.5 MG/2 ML AMP INHALATION (08:33)
[2023-06-21] MEDS: CHOLECALCIFEROL 1,000 UNITS TABLET 2000 UNITS PO (08:49)
[2023-06-21] MEDS: FUROSEMIDE 20 MG TABLET 60 MG PO (08:49)
[2023-06-21] MEDS: POTASSIUM CHLORIDE 20 MEQ ER TABLET PO ×2 (08:50→16:18)
[2023-06-21] MEDS: FERROUS SULFATE 325 MG TABLET DR BY MOUTH (08:50)
[2023-06-21] MEDS: CALCIUM CARBONATE (OSCAL) 500 MG TABLET PO (08:50)
[2023-06-21] MEDS: METOPROLOL SUCCINATE EXT REL 50 MG TABCR PO (08:50)
[2023-06-21] MEDS: CYANOCOBALAMIN 500 MCG TABLET PO (08:50)
--- NOTE | 2023-06-21 10:04 | PM.IMPN ---
Progress Note: A&P Assessment and Plan (1) Cellulitis of right lower extremity: Code(s): L03.115 - Cellulitis of right lower limb Status: Acute Assessment and Plan: 06/20/2023: RLE warm to touch, errythema present that extends up to knee, tender to touch, with considerable swelling in setting of chronic lymphedema, weeping area noted around ankle Seen by tax intern last started her on doxycycline oral. Patient received 3 doses prior to the admission. Continue IV cefazolin, will touch base with pharmacy for duration of IV antibiotic course. Blood cultures pending Continue elevation PT and OT evaluation 06/21/23: Right lower extremity warm to touch, erythema present that is about mid warren to her foot, she still reports sensitivity to light touch, still has considerable swelling in the setting of chronic lymphedema. Will continue the IV cefazolin for at least today may switch to oral Keflex tomorrow with a plan to discharge on Sunday Blood cultures are showing no growth x2 Continue with elevating right leg Continue PT and OT Pain well controlled with tramadol 50 mg (2) Lymphedema: Code(s): I89.0 - Lymphedema, not elsewhere classified Status: Chronic Assessment and Plan: 06/20/23: Continue elevation of right lower extremity PT and OT evaluation Continue with lymphedema wrap to left lower extremity, will hold off on the lymphedema wrap to the right lower extremity due to cellulitis 06/21/23: No change to current treatment plan (3) Atrial fibrillation: Code(s): I48.91 - Unspecified atrial fibrillation Status: Acute Assessment and Plan: 06/20/23: Continue warfarin and metoprolol Rate controlled 06/21/23: No change to current treatment plan (4) Warfarin anticoagulation: Code(s): 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 She was seen by tax intern last who prescribed doxycycline for a possible cellulitis which she filled on Sunday. She had 3 doses of antibiotics when home health came in to change her leg wraps when they noted her leg to be more swollen, red, and was weeping. She presented to hospital for further workup. WBC on admission was 10.1, absolute neuts 7.8. Blood cultures obtained and are pending. Patient was started on IV Cefazolin. 06/20/2023: On exam today patient alert and oriented x4. She complains of right lower extremity pain which is 5/10 on pain scale. She has lymphedema to bilateral lower extremity right greater than the left. She normally wears lymphedema wraps but currently only has a left lymphedema wraps on today. Right lower extremity warm to the touch, with erythema and swelling present. She does have good capillary refill. She denies any numbness or tingling to her lower extremities. Labs today revealed WBC of 10.1, hemoglobin 10.6, hematocrit 36.3, absolute neutrophil 7.8, PTT 23.4, INR 1.9, PTT 38.9, potassium 4.0, BUN 28, creatinine 0.9, lactic acid 1.0. Liver enzymes normal. Blood cultures pending. 06/21/23: On exam today patient is alert and oriented x4. She still reports sensitivity to light touch in the right lower extremity. Pain is well controlled on Toradol 50 mg. Only new complaint today is that she has a headache which I told her that she can take some Tylenol for. Right lower extremity still warm to the touch, erythema is less today extending from mid warren to foot, swelling present. She does have good capillary refill. Labs today reveal a white blood cell count of 9.5, hemoglobin 9.5, hematocrit 33.1, sodium 136, potassium 4.5, BUN 23, creatinine 0.7, blood
[2023-06-21] MEDS: ACETAMINOPHEN 325 MG TABLET 650 MG PO (10:10)
--- NOTE | 2023-06-21 14:27 | PCPTNOTE ---
attempted PT evaluation, pt refused. Will make RN aware. Will follow
--- NOTE | 2023-06-21 14:45 | PCOTNOTE ---
Patient refused to participate in any activity this session.
[2023-06-21] MEDS: WARFARIN (*PBKC) 5 MG TABLET PO (16:18)
[2023-06-21] MEDS: HYDROcodone/acetaminophen (*CRX) 5-325 MG TABLET 1 TAB PO (20:16)
[2023-06-21] MEDS: ATORVASTATIN 10 MG TABLET PO (20:16)
[2023-06-22] VITALS (8 sets, daily range): BP systolic 115–127; BP diastolic 60–65; PULSE 62–80; RESP 16–20; TEMP 35.7–37.1; O2SAT 92–95
[2023-06-22] MEDS: ceFAZolin 1 GM/NS 50 ML 1 GM/50 ML BAG IVPB (05:21)
[2023-06-22] MEDS: traMADol HCL (*CRX) 50 MG TABLET PO ×2 (05:33→21:09)
[2023-06-22 06:32] LABS: Basophils Percent Auto 0.4 % (0.2-1.2); Eosinophils Absolute Auto 0.1 K/mm3 (0-0.3); Eosinophils Percent Auto 0.6 % (0-4.4); Hematocrit 32.3 % (37.0-47.0); Hemoglobin 9.4 g/dL (12.0-15.0); Immature Granulocyte Absolute 0.07 K/mm3 (0.00-0.031); Immature Granulocyte Percent A 0.6 % (0-0.5); Lymphocytes Absolute Auto 0.67 K/mm3 (0.9-3.2); Lymphocytes Percent Auto 6.2 % (18.3-44.2); Mean Corpuscular HGB Conc 29.1 g/dl (32-36); Mean Corpuscular Hemoglobin 23.7 pg (26-34); Mean Corpuscular Volume 81.4 fl (80-100); Mean Platelet Volume 10.6 fl (7.4-10.4); Monocytes Percent Auto 8.8 % (2.6-8.5); Neutrophils Absolute Auto 9.1 K/mm3 (1.3-6.7); Neutrophils Percent Auto 83.4 % (45.5-73.1); Platelet Count Result 214 k/mm3 (150-375); Red Blood Count 3.97 M/mm3 (4.2-5.4); Red Cell Distribution Width 18.6 % (11.5-14.5); White Blood Count 10.9 K/mm3 (4.5-10.0)
[2023-06-22 06:41] LABS: Anion Gap 6 mmol/L (8-16); Blood Urea Nitrogen 19 mg/dL (7-17); Calcium 8.8 mg/dL (8.4-10.2); Carbon Dioxide 30 mmol/L (22-30); Chloride 100 mmol/L (98-107); Estimated CRCL calculation 88 ml/min; Estimated Glomerular Filt Rate > 60; Glucose 132 mg/dL (65-110); Sodium 136 mmol/L (137-145)
[2023-06-22 07:03] LABS: Ovalocytes 1+ (NORMAL)
[2023-06-22 07:04] LABS: Anisocytosis 1+ (NORMAL); Hypochromasia 2+ (NORMAL)
[2023-06-22 07:42] LABS: Schistocytes None Seen (NORMAL)
[2023-06-22 07:44] LABS: Platelet Estimate Adequate (Adequate)
[2023-06-22] MEDS: BUDESONIDE RESPULE NEB 0.5 MG/2 ML AMP INHALATION (07:46)
[2023-06-22] MEDS: CALCIUM CARBONATE (OSCAL) 500 MG TABLET PO (08:13)
[2023-06-22] MEDS: POTASSIUM CHLORIDE 20 MEQ ER TABLET PO ×2 (08:13→17:35)
[2023-06-22] MEDS: CYANOCOBALAMIN 500 MCG TABLET PO (08:13)
[2023-06-22] MEDS: CHOLECALCIFEROL 1,000 UNITS TABLET 2000 UNITS PO (08:13)
[2023-06-22] MEDS: FERROUS SULFATE 325 MG TABLET DR BY MOUTH (08:13)
[2023-06-22] MEDS: FUROSEMIDE 20 MG TABLET 60 MG PO (08:13)
[2023-06-22] MEDS: METOPROLOL SUCCINATE EXT REL 50 MG TABCR PO (08:13)
[2023-06-22] MEDS: CEPHALEXIN 500 MG CAPSULE PO ×2 (14:42→17:35)
--- NOTE | 2023-06-22 15:02 | P.PNIM_ITS ---
Progress Note: A&P Assessment and Plan (1) Cellulitis of right lower extremity: Code(s): L03.115 - Cellulitis of right lower limb Status: Acute Assessment and Plan: 06/20/2023: * RLE warm to touch, errythema present that extends up to knee, tender to touch, with considerable swelling in setting of chronic lymphedema, weeping area noted around ankle * Seen by senior staff accountant last started her on doxycycline oral. Patient received 3 doses prior to the admission. * Continue IV cefazolin, will touch base with pharmacy for duration of IV antibiotic course. * Blood cultures pending * Continue elevation * PT and OT evaluation 06/21/23: * Right lower extremity warm to touch, erythema present that is about mid warren to her foot, she still reports sensitivity to light touch, still has considerable swelling in the setting of chronic lymphedema. * Will continue the IV cefazolin for at least today may switch to oral Keflex tomorrow with a plan to discharge on Sunday * Blood cultures are showing no growth x2 * Continue with elevating right leg * Continue PT and OT * Pain well controlled with tramadol 50 mg 06/22/23: * Right lower extremity showing worsening erythema back up to her knee, patient states that her pain is better today despite the redness. * Continue pain control * blood cultures are still showing no growth * continue PT and OT * continue with elevating the right leg * patient finished 3 doses of Rocephin IV, will transition to Keflex 500 mg q.6 today, will add doxycycline 100 mg twice a day for MRSA coverage due to her worsening erythema (2) Lymphedema: Code(s): I89.0 - Lymphedema, not elsewhere classified Status: Chronic Assessment and Plan: 06/20/23: * Continue elevation of right lower extremity * PT and OT evaluation * Continue with lymphedema wrap to left lower extremity, will hold off on the lymphedema wrap to the right lower extremity due to cellulitis 06/21/23: * No change to current treatment plan (3) Atrial fibrillation: Code(s): I48.91 - Unspecified atrial fibrillation Status: Acute Assessment and Plan: 06/20/23: * Continue warfarin and metoprolol * Rate controlled 06/21/23: * No change to current treatment plan (4) Warfarin anticoagulation: Code(s): 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 She was seen by senior staff accountant last who prescribed doxycycline for a possible cellulitis which she filled on Sunday. She had 3 doses of antibiotics when home health came in to change her leg wraps when they noted her leg to be more swollen, red, and was weeping. She presented to hospital for further workup. WBC on admission was 10.1, absolute neuts 7.8. Blood cultures obtained and are pending. Patient was started on IV Cefazolin. 06/20/2023: On exam today patient alert and oriented x4. She complains of right lower extremity pain which is 5/10 on pain scale. She has lymphedema to bilateral lower extremity right greater than the left. She normally wears lymphedema wraps but currently only has a left lymphedema wraps on today. Right lower extremity warm to the touch, with
--- NOTE | 2023-06-22 15:02 | PM.IMPN ---
Progress Note: A&P Assessment and Plan (1) Cellulitis of right lower extremity: Code(s): L03.115 - Cellulitis of right lower limb Status: Acute Assessment and Plan: 06/20/2023: RLE warm to touch, errythema present that extends up to knee, tender to touch, with considerable swelling in setting of chronic lymphedema, weeping area noted around ankle Seen by behavioral consultant last started her on doxycycline oral. Patient received 3 doses prior to the admission. Continue IV cefazolin, will touch base with pharmacy for duration of IV antibiotic course. Blood cultures pending Continue elevation PT and OT evaluation 06/21/23: Right lower extremity warm to touch, erythema present that is about mid warren to her foot, she still reports sensitivity to light touch, still has considerable swelling in the setting of chronic lymphedema. Will continue the IV cefazolin for at least today may switch to oral Keflex tomorrow with a plan to discharge on Sunday Blood cultures are showing no growth x2 Continue with elevating right leg Continue PT and OT Pain well controlled with tramadol 50 mg 06/22/23: Right lower extremity showing worsening erythema back up to her knee, patient states that her pain is better today despite the redness. Continue pain control blood cultures are still showing no growth continue PT and OT continue with elevating the right leg patient finished 3 doses of Rocephin IV, will transition to Keflex 500 mg q.6 today, will add doxycycline 100 mg twice a day for MRSA coverage due to her worsening erythema (2) Lymphedema: Code(s): I89.0 - Lymphedema, not elsewhere classified Status: Chronic Assessment and Plan: 06/20/23: Continue elevation of right lower extremity PT and OT evaluation Continue with lymphedema wrap to left lower extremity, will hold off on the lymphedema wrap to the right lower extremity due to cellulitis 06/21/23: No change to current treatment plan (3) Atrial fibrillation: Code(s): I48.91 - Unspecified atrial fibrillation Status: Acute Assessment and Plan: 06/20/23: Continue warfarin and metoprolol Rate controlled 06/21/23: No change to current treatment plan (4) Warfarin anticoagulation: Code(s): Z79.01 - salvage 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 She was seen by behavioral consultant last who prescribed doxycycline for a possible cellulitis which she filled on Sunday. She had 3 doses of antibiotics when home health came in to change her leg wraps when they noted her leg to be more swollen, red, and was weeping. She presented to hospital for further workup. WBC on admission was 10.1, absolute neuts 7.8. Blood cultures obtained and are pending. Patient was started on IV Cefazolin. 06/20/2023: On exam today patient alert and oriented x4. She complains of right lower extremity pain which is 5/10 on pain scale. She has lymphedema to bilateral lower extremity right greater than the left. She normally wears lymphedema wraps but currently only has a left lymphedema wraps on today. Right lower extremity warm to the touch, with erythema and swelling present. She does have good capillary refill. She denies any numbness or tingling to her lower extremities. Labs today revealed WBC of 10.1, hemoglobin 10.6, hematocrit 36.3, absolute neutrophil 7.8, PTT 23.4, INR 1.9, PTT 38.9, potassium 4.0, BUN 28, creatinine 0.9, lactic acid 1.0. Liver enzymes normal. Blood cultures pending. 06/21/23: On exam today patient is alert and oriented x4. Sh
[2023-06-22] MEDS: WARFARIN (*PBKC) 4 MG TABLET 8 MG PO (17:40)
[2023-06-22] MEDS: DOXYCYCLINE HYCLATE 100 MG TABLET PO (21:08)
[2023-06-22] MEDS: ATORVASTATIN 10 MG TABLET PO (21:09)
[2023-06-23] VITALS (7 sets, daily range): BP systolic 115–130; BP diastolic 43–66; PULSE 68–83; RESP 18–20; TEMP 36.4–36.6; O2SAT 95–97
[2023-06-23] MEDS: CEPHALEXIN 500 MG CAPSULE PO ×4 (00:11→17:35)
[2023-06-23] MEDS: traMADol HCL (*CRX) 50 MG TABLET PO (06:06)
[2023-06-23] MEDS: BUDESONIDE RESPULE NEB 0.5 MG/2 ML AMP INHALATION (07:29)
[2023-06-23 07:51] LABS: Basophils Absolute Auto 0.1 K/mm3 (0.0-0.1); Basophils Percent Auto 1.2 % (0.2-1.2); Eosinophils Absolute Auto 0.4 K/mm3 (0-0.3); Eosinophils Percent Auto 4.7 % (0-4.4); Hematocrit 32.4 % (37.0-47.0); Hemoglobin 9.4 g/dL (12.0-15.0); Immature Granulocyte Absolute 0.04 K/mm3 (0.00-0.031); Immature Granulocyte Percent A 0.5 % (0-0.5); Lymphocytes Absolute Auto 0.77 K/mm3 (0.9-3.2); Lymphocytes Percent Auto 9.9 % (18.3-44.2); Mean Corpuscular Hemoglobin 23.8 pg (26-34); Mean Platelet Volume 10.9 fl (7.4-10.4); Monocytes Absolute Auto 1.1 K/mm3 (0.1-0.6); Monocytes Percent Auto 14.5 % (2.6-8.5); Neutrophils Absolute Auto 5.4 K/mm3 (1.3-6.7); Neutrophils Percent Auto 69.2 % (45.5-73.1); Platelet Count Result 215 k/mm3 (150-375); Red Blood Count 3.95 M/mm3 (4.2-5.4); Red Cell Distribution Width 18.3 % (11.5-14.5); White Blood Count 7.8 K/mm3 (4.5-10.0)
[2023-06-23 07:59] LABS: Anion Gap 4 mmol/L (8-16); Blood Urea Nitrogen 22 mg/dL (7-17); Calcium 8.7 mg/dL (8.4-10.2); Carbon Dioxide 27 mmol/L (22-30); Chloride 101 mmol/L (98-107); Estimated CRCL calculation 101 ml/min; Estimated Glomerular Filt Rate > 60; Glucose 108 mg/dL (65-110); Potassium 4.4 mmol/L (3.4-5.0); Sodium 132 mmol/L (137-145)
--- NOTE | 2023-06-23 09:02 | PM.DS ---
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 Status at Discharge Cognitive/behavioral status at discharge: Alert and oriented x4 Functional status at discharge: uses cane/walker Overall status at discharge: patient is progressing back to baseline Time Spent with Patient Time attestation: Total time spent providing and/or coordinating discharge services: Time spent: Greater than 30 minutes Exam Narrative: General: Nontoxic-appearing female in bed in no acute distress. HEENT: PERRL, EOMI. Moist, pink mucous membranes. Oropharynx is crowded. Neck: Supple. Trachea midline, no adenopathy Respiratory: Lungs are clear to auscultation bilaterally, no adventitious lung sounds. Cardiovascular: Regular rate and rhythm with S1-S2. No murmurs, friction rubs, or gallops. Gastrointestinal: Abdomen is soft, morbidly obese, nontender, and nondistended with normoactive bowel sounds. Skin: Warm and dry. Bilateral lower legs are erythematous bilaterally, however right leg is worse than the left. Erythema worse today extending from foot to knee. Extremities: No cyanosis or clubbing. She has lymphedema of the lower extremities. Uses two canes for ambulation at home, good capillary refill Neurological: Alert and oriented x4, No gross focal deficits. Psychiatric: Cooperative, interactive, appropriate mood and affect. DS: Data Data Completed and Pending Completed studies during hospitalization: None Pending studies at discharge: None Labs on day of discharge: Labs from last 24 hours 06/23/23 07:17 WBC 7.8 RBC 3.95 L Hgb 9.4 L Hct 32.4 L MCV 82.0 MCH 23.8 L MCHC 29.0 L RDW 18.3 H Plt Count 215 MPV 10.9 H Immature Gran % (Auto) 0.5 Neut % (Auto) 69.2 Lymph % (Auto) 9.9 L [place] % (Auto) 14.5 H Eos % (Auto) 4.7 H Baso % (Auto) 1.2 Lymph # (Auto) 0.77 L [place] # (Auto) 1.1 H Eos # (Auto) 0.4 H Baso # (Auto) 0.1 Abs Immat Gran (auto) 0.04 H Absolute Neuts (auto) 5.4 Absolute Nucleated RBC 0.0 Nucleated RBC % 0.0 Sodium 132 L Potassium 4.4 Chloride 101 Carbon Dioxide 27 Anion Gap 4 L BUN 22 H Creatinine 0.60 L Estim Creat Clear Calc 101 Estimated GFR > 60 Glucose 108 Calcium 8.7 Preliminary micro results at discharge 06/19/23 13:34 Blood Culture - Preliminary Blood 06/19/23 13:34 Blood Culture - Preliminary Blood Discharge Plan Discharge Attending physician on discharge: Suma Cr Discharging Clinician: Marisela Ruiz Anticipated Discharge Date/Time: 06/23/23 09:09 Patient Disposition: Home, Self-Care Activity: as tolerated Diet: as tolerated Patient Instructions: Antibiotic Form, Cellulitis (GEN) Patient Language: Khmer Stand Alone Forms: General Discharge Information Follow-up/Referrals: Dayanna,KENYA Antonio [Primary Care Provider] - 1 Week (Follow up with Marisela Alan on 06/26/23 at 11:20 am.) Discharge Medications: New cephalexin 500 mg C
[2023-06-23] MEDS: DOXYCYCLINE HYCLATE 100 MG TABLET PO ×2 (09:07→20:53)
[2023-06-23] MEDS: POTASSIUM CHLORIDE 20 MEQ ER TABLET PO ×2 (09:07→17:35)
[2023-06-23] MEDS: CHOLECALCIFEROL 1,000 UNITS TABLET 2000 UNITS PO (09:07)
[2023-06-23] MEDS: FERROUS SULFATE 325 MG TABLET DR BY MOUTH (09:07)
[2023-06-23] MEDS: CALCIUM CARBONATE (OSCAL) 500 MG TABLET PO (09:07)
[2023-06-23] MEDS: METOPROLOL SUCCINATE EXT REL 50 MG TABCR PO (09:08)
[2023-06-23] MEDS: CYANOCOBALAMIN 500 MCG TABLET PO (09:08)
[2023-06-23] MEDS: FUROSEMIDE 20 MG TABLET 60 MG PO (09:09)
--- NOTE | 2023-06-23 10:50 | P.PNIM_ITS ---
Progress Note: A&P Assessment and Plan (1) Cellulitis of right lower extremity: Code(s): L03.115 - Cellulitis of right lower limb Status: Acute Assessment and Plan: 06/20/2023: * RLE warm to touch, errythema present that extends up to knee, tender to touch, with considerable swelling in setting of chronic lymphedema, weeping area noted around ankle * Seen by horse buyer last started her on doxycycline oral. Patient received 3 doses prior to the admission. * Continue IV cefazolin, will touch base with pharmacy for duration of IV antibiotic course. * Blood cultures pending * Continue elevation * PT and OT evaluation 06/21/23: * Right lower extremity warm to touch, erythema present that is about mid warren to her foot, she still reports sensitivity to light touch, still has considerable swelling in the setting of chronic lymphedema. * Will continue the IV cefazolin for at least today may switch to oral Keflex tomorrow with a plan to discharge on Sunday * Blood cultures are showing no growth x2 * Continue with elevating right leg * Continue PT and OT * Pain well controlled with tramadol 50 mg 06/22/23: * Right lower extremity showing worsening erythema back up to her knee, patient states that her pain is better today despite the redness. * Continue pain control * blood cultures are still showing no growth * continue PT and OT * continue with elevating the right leg * patient finished 3 doses of Rocephin IV, will transition to Keflex 500 mg q.6 today, will add doxycycline 100 mg twice a day for MRSA coverage due to her worsening erythema 06/23/23: * Right lower extremity erythema present up to her knee, states that the sensitivity over her leg is much better than when she 1st came in. * Continue pain control * patient to ambulate and sit up in chair today, she will also get cleaned up * continue with elevating the right leg * continue Keflex 500 mg q.6 and doxycycline 100 mg twice a day * WBC 7.8 this morning * plan for discharge tomorrow back to home (2) Lymphedema: Code(s): I89.0 - Lymphedema, not elsewhere classified Status: Chronic Assessment and Plan: 06/20/23: * Continue elevation of right lower extremity * PT and OT evaluation * Continue with lymphedema wrap to left lower extremity, will hold off on the lymphedema wrap to the right lower extremity due to cellulitis 06/21/23: * No change to current treatment plan (3) Atrial fibrillation: Code(s): I48.91 - Unspecified atrial fibrillation Status: Acute Assessment and Plan: 06/20/23: * Continue warfarin and metoprolol * Rate controlled 06/21/23: * No change to current treatment plan (4) Warfarin anticoagulation: Code(s): Z79.01 - [facility] (current) use of anticoagulants Status: Acute Assessment and Plan: 06/20/23: * Continue warfarin * Monitor labs, INR 1.9 06/21/23: * No change to current treatment plan Time Spent With Patient Time with patient: Greater than 35 minutes Subjective Date/time seen: 06/23/23 10:50 Interval history: This is a 77 year old female who presented to the ER on 06/19/23 with complaints of pain and redness in the right leg. She was seen by horse buyer last who prescribed doxycycline for a possible cellulitis which she filled on Sunday. She had 3 doses of antibiotics when home health came in to change her leg wraps when they noted her leg to be more swollen, red, and was weeping. She presented to hospital for further workup. WBC on admission wa
--- NOTE | 2023-06-23 10:50 | PM.IMPN ---
Progress Note: A&P Assessment and Plan (1) Cellulitis of right lower extremity: Code(s): L03.115 - Cellulitis of right lower limb Status: Acute Assessment and Plan: 06/20/2023: RLE warm to touch, errythema present that extends up to knee, tender to touch, with considerable swelling in setting of chronic lymphedema, weeping area noted around ankle Seen by design quality engineer last started her on doxycycline oral. Patient received 3 doses prior to the admission. Continue IV cefazolin, will touch base with pharmacy for duration of IV antibiotic course. Blood cultures pending Continue elevation PT and OT evaluation 06/21/23: Right lower extremity warm to touch, erythema present that is about mid warren to her foot, she still reports sensitivity to light touch, still has considerable swelling in the setting of chronic lymphedema. Will continue the IV cefazolin for at least today may switch to oral Keflex tomorrow with a plan to discharge on Sunday Blood cultures are showing no growth x2 Continue with elevating right leg Continue PT and OT Pain well controlled with tramadol 50 mg 06/22/23: Right lower extremity showing worsening erythema back up to her knee, patient states that her pain is better today despite the redness. Continue pain control blood cultures are still showing no growth continue PT and OT continue with elevating the right leg patient finished 3 doses of Rocephin IV, will transition to Keflex 500 mg q.6 today, will add doxycycline 100 mg twice a day for MRSA coverage due to her worsening erythema 06/23/23: Right lower extremity erythema present up to her knee, states that the sensitivity over her leg is much better than when she 1st came in. Continue pain control patient to ambulate and sit up in chair today, she will also get cleaned up continue with elevating the right leg continue Keflex 500 mg q.6 and doxycycline 100 mg twice a day WBC 7.8 this morning plan for discharge tomorrow back to home (2) Lymphedema: Code(s): I89.0 - Lymphedema, not elsewhere classified Status: Chronic Assessment and Plan: 06/20/23: Continue elevation of right lower extremity PT and OT evaluation Continue with lymphedema wrap to left lower extremity, will hold off on the lymphedema wrap to the right lower extremity due to cellulitis 06/21/23: No change to current treatment plan (3) Atrial fibrillation: Code(s): I48.91 - Unspecified atrial fibrillation Status: Acute Assessment and Plan: 06/20/23: Continue warfarin and metoprolol Rate controlled 06/21/23: No change to current treatment plan (4) Warfarin anticoagulation: Code(s): Z79.01 - termination clerk (current) use of anticoagulants Status: Acute Assessment and Plan: 06/20/23: Continue warfarin Monitor labs, INR 1.9 06/21/23: No change to current treatment plan Time Spent With Patient Time with patient: Greater than 35 minutes Subjective Date/time seen: 06/23/23 10:50 Interval history: This is a 77 year old female who presented to the ER on 06/19/23 with complaints of pain and redness in the right leg. She was seen by design quality engineer last who prescribed doxycycline for a possible cellulitis which she filled on Sunday. She had 3 doses of antibiotics when home health came in to change her leg wraps when they noted her leg to be more swollen, red, and was weeping. She presented to hospital for further workup. WBC on admission was 10.1, absolute neuts 7.8. Blood cultures obtained and are pending. Patient was started on IV Cefazolin. 06/20/2023: On exam today patient alert and oriented x4. She complains of right lower extremity pain which is 5/10 on pain scale. She has lymphedema to bilateral lower extremity right greater than the left. She normally wears lymphedema wraps but currently only has a left lymphedema wraps on today. Right lower extremity warm t
[2023-06-23] MEDS: WARFARIN (*PBKC) 4 MG TABLET 8 MG PO (17:35)
[2023-06-23] MEDS: ATORVASTATIN 10 MG TABLET PO (20:53)
[2023-06-24] MEDS: CEPHALEXIN 500 MG CAPSULE PO ×3 (00:55→13:04)
[2023-06-24 06:00] VITALS: BP 145/73; PULSE 59; RESP 18; TEMP 36.6; O2SAT 99
[2023-06-24 06:30] LABS: Basophils Absolute Auto 0.1 K/mm3 (0.0-0.1); Basophils Percent Auto 1.2 % (0.2-1.2); Eosinophils Absolute Auto 0.5 K/mm3 (0-0.3); Eosinophils Percent Auto 5.6 % (0-4.4); Hemoglobin 9.9 g/dL (12.0-15.0); Immature Granulocyte Absolute 0.07 K/mm3 (0.00-0.031); Immature Granulocyte Percent A 0.8 % (0-0.5); Lymphocytes Absolute Auto 0.58 K/mm3 (0.9-3.2); Lymphocytes Percent Auto 6.7 % (18.3-44.2); Mean Corpuscular HGB Conc 29.1 g/dl (32-36); Mean Corpuscular Hemoglobin 23.8 pg (26-34); Mean Corpuscular Volume 81.7 fl (80-100); Mean Platelet Volume 10.2 fl (7.4-10.4); Monocytes Absolute Auto 1.2 K/mm3 (0.1-0.6); Monocytes Percent Auto 13.5 % (2.6-8.5); Neutrophils Absolute Auto 6.3 K/mm3 (1.3-6.7); Neutrophils Percent Auto 72.2 % (45.5-73.1); Platelet Count Result 221 k/mm3 (150-375); Red Blood Count 4.16 M/mm3 (4.2-5.4); Red Cell Distribution Width 18.2 % (11.5-14.5); White Blood Count 8.7 K/mm3 (4.5-10.0)
[2023-06-24 06:48] LABS: Anion Gap 6 mmol/L (8-16); Blood Urea Nitrogen 23 mg/dL (7-17); Calcium 8.9 mg/dL (8.4-10.2); Carbon Dioxide 31 mmol/L (22-30); Chloride 100 mmol/L (98-107); Estimated CRCL calculation 88 ml/min; Estimated Glomerular Filt Rate > 60; Glucose 130 mg/dL (65-110); Potassium 4.6 mmol/L (3.4-5.0); Sodium 137 mmol/L (137-145)
[2023-06-24 06:59] LABS: Anisocytosis 1+ (NORMAL); Hypochromasia 1+ (NORMAL); Platelet Estimate Adequate (Adequate)
[2023-06-24 07:00] LABS: Schistocytes None Seen (NORMAL)
[2023-06-24] MEDS: ALBUTEROL SULFATE NEB 2.5 MG/3 ML INH INHALATION (07:45)
[2023-06-24 07:46] VITALS: PULSE 77; RESP 18
[2023-06-24 07:51] VITALS: PULSE 77; RESP 18
[2023-06-24] MEDS: DOXYCYCLINE HYCLATE 100 MG TABLET PO (08:45)
[2023-06-24] MEDS: POTASSIUM CHLORIDE 20 MEQ ER TABLET PO (08:50)
[2023-06-24] MEDS: FUROSEMIDE 20 MG TABLET 60 MG PO (08:50)
[2023-06-24] MEDS: FERROUS SULFATE 325 MG TABLET DR BY MOUTH (08:50)
[2023-06-24 08:51] VITALS: PULSE 80
[2023-06-24] MEDS: CHOLECALCIFEROL 1,000 UNITS TABLET 2000 UNITS PO (08:51)
[2023-06-24] MEDS: CYANOCOBALAMIN 500 MCG TABLET PO (08:51)
[2023-06-24] MEDS: METOPROLOL SUCCINATE EXT REL 50 MG TABCR PO (08:51)
[2023-06-24] MEDS: CALCIUM CARBONATE (OSCAL) 500 MG TABLET PO (08:51)
[2023-06-24 10:19] LABS: INR 2.1; Prothrombin Time 24.8 Seconds (11.1-14.7)
--- NOTE | 2023-06-24 10:19 | PM.DS ---
DS: Admitting Diagnosis Discharge Date 06/24/23 Admitting Diagnosis Cellulitis of right lower extremity lymphedema atrial fibrillation warfarin anticoagulation DS: Discharge Diagnosis Discharge Diagnosis (1) Cellulitis of right lower extremity: Code(s): L03.115 - Cellulitis of right lower limb Status: Acute (2) Lymphedema: Code(s): I89.0 - Lymphedema, not elsewhere classified Status: Chronic (3) Atrial fibrillation: Code(s): I48.91 - Unspecified atrial fibrillation Status: Acute (4) Warfarin anticoagulation: Code(s): Z79.01 - [facility] (current) use of anticoagulants Status: Acute DS: Summary Hospital Course Reason for hospitalization: cellulitis of right lower extremity Hospital Course: this is a 77-year-old female [place] [id number] with complaints of pain and redness to the right leg. prior to admission she went to her superior court justice who prescribed doxycycline for possible cellulitis in that right lower extremity in which she took 3 doses prior to presenting to the ER. The blood cultures were obtained and so far showing no growth day 4. Patient had few days of IV cefazolin and was transition to Keflex 500 mg q.6 hours on 06/20/2023. 06/22/2023 patient's white blood cell count increased to 10.9 and she was started on doxycycline 100 mg b.i.d. as well. on labs today revealed a white blood cell count 8.7, hemoglobin 9.9, hematocrit 34.0, sodium 137, potassium 4.6, BUN 23, creatinine 0.7, blood sugars ranging 108-132. On exam today patient is alert and oriented x4, sitting on the side of the bed, she remains afebrile, vital signs have been stable, and she remains on room air. She was able to work with physical therapy during her admission. Her activity shown improvement in ambulation and ADLs. Patient stable for discharge. she will be discharged with prescriptions for doxycycline 100 mg b.i.d. for the next 8 days, and Keflex 500 mg q.6 hour for an additional 6 days. She will need to follow up with her primary care physician within 1 week. Status at Discharge Cognitive/behavioral status at discharge: patient alert oriented x4 Functional status at discharge: uses cane/walker Overall status at discharge: patient is progressing back to baseline Time Spent with Patient Time attestation: Total time spent providing and/or coordinating discharge services: Exam Narrative: General:?Nontoxic-appearing female in bed in no acute distress. HEENT:??PERRL, EOMI. Moist, pink mucous membranes.? Oropharynx is crowded. Neck:??Supple. Trachea midline, no adenopathy Respiratory:?Lungs are clear to auscultation bilaterally, no adventitious lung sounds. Cardiovascular:??Regular rate and rhythm with S1-S2. No murmurs, friction rubs, or gallops. Gastrointestinal:??Abdomen is soft, morbidly obese, nontender, and nondistended with normoactive bowel sounds. Skin:??Warm and dry. Bilateral lower legs are erythematous bilaterally, however right leg is worse than the left. Erythema better today, light pink in color. Extremities:??No cyanosis or clubbing. She has lymphedema of the lower extremities. Uses two canes for ambulation at home, good capillary refill Neurological:??Alert and oriented x4,? No gross focal deficits. Psychiatric:?Cooperative, interactive,? appropriate mood and affect. DS: Data Data Completed and Pending Completed studies during hospitalization: none Pending studies at discharge: none Labs on day of discharge: Labs from last 24 hours 06/24/23 06/24/23 10:02 06:20 WBC 8.7 RBC 4.16 L Hgb 9.9 L Hct 34.0 L MCV 81.7 MCH 23.8 L MCHC 29.1 L RDW 18.2 H Plt Count 221 MPV 10.2 Immature Gran % (Auto) 0.8 H Neut % (Auto) 72.2 Lymph % (Auto) 6.7 L Hubbard % (Auto) 13.5 H Eos % (Auto) 5.6 H Baso % (Auto) 1.2 Lymph # (Auto) 0.58 L Hubbard # (Auto) 1.2 H Eos # (Auto) 0.5 H Baso # (Auto) 0.1 Abs Immat Gran (auto) 0.0
[2023-06-24 11:24] VITALS: BP 109/66; PULSE 72; RESP 16; TEMP 36.9; O2SAT 97
== END 2023-06-24 14:05 | disposition home or self-care (01) ==
LOC: ANHED 15:19 → ANH3MEDSUR 17:43
PROVIDERS: Emergency Medicine; Nurse Practitioner Acute Care; Physician Assistant; Admitting Provider Hospitalist; Emergency Provider Emergency Medicine; PCP Registered Nurse; Visit Provider Student in an Organized Health Care Education/Training Program
DX: L03.115 Cellulitis of right lower limb (principal); I89.0 Lymphedema, not elsewhere classified; I48.91 Unspecified atrial fibrillation; R06.02 Shortness of breath; D50.9 Iron deficiency anemia, unspecified; G47.33 Obstructive sleep apnea (adult) (pediatric); Z99.89 Dependence on other enabling machines and devices; I27.20 Pulmonary hypertension, unspecified; Z95.2 Presence of prosthetic heart valve; M19.90 Unspecified osteoarthritis, unspecified site; Z79.01 Long term (current) use of anticoagulants; Z79.51 Long term (current) use of inhaled steroids; Z79.891 Long term (current) use of opiate analgesic; Z79.899 Other long term (current) drug therapy; Z82.49 Family history of ischemic heart disease and other diseases of the circulatory system
CPT/HCPCS: 36415; 80048; 80053; 83605; 85025; 85610; 85730; 87040; 87081; 94640; 96365; 96375; 96376; 97110; 97161; 97166; 97530; 97535; 99285; A9270; G0378; J0690; J2270

== ENCOUNTER 2023-12-28 10:13 | Outpatient (CLI) | payer MEDICARE, SELFPAY ==
--- NOTE | ~2023-12-28 | CT_ITS ---
CT Scan of the Chest without Contrast: Clinical Indication: Cough Technique: Contiguous sections were acquired throughout the chest without intravenous contrast. Dose reduction technique was used on this scan by utilizing automated exposure control and iterative recon struction technique. The dose-length product (DLP) was 562.74 mGy-cm. COMPARISON: 12/04/2021 Findings: There is no evidence of any significant mediastinal, hilar or axillary lymphadenopathy. Probable card iomegaly present, with aortic valve replacement and extensive coronary artery calcifications. There is no evidence of pleural or pericardial effusion. There is probable discoid atelectasis or scarring at the inferior right upper lobe. No other distinct pulmonary abnormality seen. Images through the upper abdomen reveal no abnormalities. Impression: No acute abnormality evident. Discoid atelectasis or scarring right upper lobe. Cardiomegaly, with aortic valve replacement. Reviewed, dictated and finalized at [facility]. Impression: No acute abnormality evident. Discoid atelectasis or scarring right upper lobe. Cardiomegaly, with aortic valve replacement.
== END 2023-12-28 10:14 ==
LOC: MICIMG 10:15
PROVIDERS: PCP Registered Nurse
DX: R05.9 Cough, unspecified (principal); R91.8 Other nonspecific abnormal finding of lung field
CPT/HCPCS: 71250

== ENCOUNTER 2024-01-01 18:57 | Inpatient (IN) | payer MEDICARE, SELFPAY ==
[2024-01-01] VITALS (8 sets, daily range): BP systolic 105–123; BP diastolic 53–91; PULSE 78–111; RESP 15–25; TEMP 36.6; O2SAT 91–100
--- NOTE | ~2024-01-01 | US_ITS ---
EXAMINATION:US venous doppler LE RT INDICATION:Bilateral lower extremity edema TECHNIQUE: Multiple grayscale, color flow and Doppler images of the right and left lower extremity de ep venous systems were obtained and reviewed. COMPARISON:07/02/2020 FINDINGS: The common femoral, superficial femoral and popliteal veins demonstrate normal respiratory variation, augmentation and compressibility. Color flow is also seen within the posterior tibial, gr eater saphenous and profunda veins. Peroneal vein not visualized. IMPRESSION: 1: No lower extremity deep venous thrombosis. Reviewed, dictated and finalized at location B.
--- NOTE | ~2024-01-01 | XR_ITS ---
Portable chest x-ray Comparison: 12/04/2021 Clinical History: CHF Findings: There is central congestive change and mild patchy airspace disease and interstitial promi nence, most compatible with moderate pulmonary edema pattern. No pleural effusion or pneumothorax. C ardiomediastinal silhouette is stable, status post aortic valve replacement. Bones and soft tissues a re unremarkable. Impression: Moderate probable pulmonary edema pattern. Correlate for chronic interstitial disease or atypical inf ection. Stable cardiomegaly, status post aortic valve placement. Reviewed, dictated and finalized at location . Impression: Moderate probable pulmonary edema pattern. Correlate for chronic interstitial d isease or atypical infection. Stable cardiomegaly, status post aortic valve placement.
--- NOTE | ~2024-01-01 | XR_ITS ---
EXAMINATION: XR chest 1V portable DATE: 01/05/2024 11:06 INDICATION: Shortness of breath and wheezing TECHNIQUE: frontal view of the chest was obtained. COMPARISON: Chest radiograph dated 01/02/2024 FINDINGS: Cardiomegaly with pulmonary vascular congestion. Persistent mild opacities in bilateral lower lung zo brian. No pleural effusion or pneumothorax. Change of prior aortic valve repair. IMPRESSION: 1. Cardiomegaly with pulmonary vascular congestion and prior aortic valve repair. 2. Multiple opacities in the bilateral lower lung zones which could represent mild pulmonary edema, a telectasis or pneumonia. Reviewed, dictated and finalized at location A. IMPRESSION: 1. Cardiomegaly with pulmonary vascular congestion and prior aortic valve repai r. 2. Multiple opacities in the bilateral lower lung zones which could represent m ild pulmonary edema, atelectasis or pneumonia.
--- NOTE | ~2024-01-01 | XR_ITS ---
Left foot Technique: AP, oblique, and lateral views were obtained. Clinical History: Cellulitis Findings: No acute fracture or dislocation is seen. Osseous alignment is anatomic. Joint spaces are p reserved without erosive or degenerative change. Marked dorsal soft tissue swelling the foot noted. Impression: No fracture or radiographic evidence for osteomyelitis. Marked dorsal soft tissue swelling of the foot. Reviewed, dictated and finalized at location . Impression: No fracture or radiographic evidence for osteomyelitis. Marked dorsal soft tissue swelling of the foot.
--- NOTE | ~2024-01-01 | XR_ITS ---
AP and lateral views of the right tibia/fibula Clinical History: Cellulitis Findings: No acute fracture or dislocation is seen. Osseous alignment is anatomic. There is moderate degenerative change of the talonavicular articulation. There is advanced tricompartmental osteophytos is of the knee.. Extensive soft tissue calcifications may be related to venous stasis. There is exten sive subcutaneous soft tissue edema. Impression: Diffuse subcutaneous soft tissue edema, compatible with history cellulitis. Degenerative changes of the knee and talonavicular reticulation, as detailed above. Reviewed, dictated and finalized at location M. Impression: Diffuse subcutaneous soft tissue edema, compatible with history cellulitis. Degenerative changes of the knee and talonavicular reticulation, as detailed ab ove.
--- NOTE | ~2024-01-01 | XR_ITS ---
AP and lateral views of the left tibia/fibula Clinical History: Cellulitis Findings: No acute fracture or dislocation is seen. Osseous alignment is anatomic. Advanced tricompar tmental degenerative change of the left knee is noted. There is diffuse subcutaneous soft tissue mary a, nonspecific. Nonspecific soft tissue calcifications are present. Impression: Advanced tricompartmental osteoarthritis of the left knee. Subcutaneous soft tissue edema diffusely, compatible with history cellulitis. Reviewed, dictated and finalized at location . Impression: Advanced tricompartmental osteoarthritis of the left knee. Subcutaneous soft tissue edema diffusely, compatible with history cellulitis.
--- NOTE | 2024-01-01 22:10 | PC.NURSE ---
patients main concern for coming in in their LEFT lower leg. However, patient is experiencing weeping and sloughing on both lower legs. recently finished Keflex for wounds on RIGHT leg
--- NOTE | 2024-01-01 23:21 | PC.NURSE ---
care and report given to JEFRY Donis. all questions answered.
--- NOTE | 2024-01-01 23:55 | ECG_ITS ---
SEE SCANNED COPY FOR CONFIRMED REPORT MTDD
--- NOTE | 2024-01-01 23:57 | ED.EXTPRO ---
HPI - Extremity Problem General Chief complaint: Extremity Problem,Nontraumatic Stated complaint: LYMPHADEMA INCREASED DRAINAGE Time Seen by Provider: 01/01/24 22:55 History of Present Illness HPI Narrative: 78-year-old female who is chronically anticoagulated on warfarin for AFib, ALISON, CAD, CHF, lymphedema, aortic stenosis presents to emergency department with her daughters at bedside for concerns for cellulitis. Patient's daughter assists with history. States approximately 1 week ago they noticed an ulceration to the right lateral aspect the patient's tib-fib. She was started on Keflex by her PCP which she finished 2 days ago. States he noticed some improvement, however today when the daughter was changing the patient's lymphedema wraps, she noticed diffuse green purulence and increased redness throughout the left lower extremity with new skin breakdown which prompted her to bring the patient to the ED. they also endorse that they have noticed some increased swelling to both of the patient's legs with erythema, pain and warmth to the left leg. The patient states she is not compliant with her diuretics because she does not like and it makes her urinate frequently. She believes she took her Lasix this morning. The patient denies chest pain, shortness of breath, abdominal pain, fever, nausea or vomiting, dysuria or hematuria. Patient's daughter at bedside states she has noticed some labored breathing today. Related Data Home Medications Medication Instructions Recorded Confirmed albuterol sulfate 90 mcg/actuation 2 puff inhalation Q4H PRN 08/12/19 01/02/24 aerosol inhaler (ProAir HFA) Shortness Of Breath calcium carbonate 500 mg PO DAILY 08/12/19 01/02/24 cholecalciferol (vitamin D3) 50 2,000 unit PO DAILY 08/12/19 01/02/24 mcg (2,000 unit) tablet coenzyme Q10 400 mg capsule (Co 400 mg PO DAILY 08/12/19 01/02/24 Q-10) cyanocobalamin (vitamin B-12) 500 500 mcg PO DAILY 08/12/19 01/02/24 mcg tablet (Vitamin B-12) ferrous sulfate 325 mg (65 mg 324 mg PO DAILY 12/17/20 01/02/24 iron) tablet metoprolol succinate 50 mg 50 mg PO DAILY 12/17/20 01/02/24 tablet,extended release 24 hr furosemide 20 mg tablet 60 mg PO DAILY 01/03/22 01/02/24 potassium chloride 20 mEq 20 meq PO DAILY 01/03/22 01/02/24 tablet,extended release(part/cryst) (Klor-Con M) warfarin 2 mg tablet 5 mg PO WEEKLY 09/26/22 01/02/24 warfarin 2 mg tablet 8 mg PO DIRECTED 09/26/22 01/02/24 atorvastatin 10 mg tablet 10 mg PO EVERY OTHER DAY 06/19/23 01/02/24 pregabalin 75 mg capsule 75 mg PO HS 01/02/24 01/02/24 Allergies Allergy/AdvReac Type Severity Reaction Status Date / Time hydromorphone Allergy Unknown Unknown Verified 01/02/24 09:34 meperidine Allergy Unknown DIZZINESS, Verified 01/02/24 09:34 N/V Review of Systems Review of Systems: CONSTITUTIONAL: Denies fever, chills, or sweats. EYES: Denies visual changes, redness, or discharge. ENT: Denies rhinorrhea, congestion, sore throat, or otalgia. CARDIOVASCULAR: Denies chest pain, palpitations, or edema. RESPIRATORY: See HPI GASTROINTESTINAL: Denies abdominal pain, nausea, vomiting, or diarrhea. GENITOURINARY: Denies dysuria or hematuria. SKIN: See HPI MUSCULOSKELETAL: Denies back pain, joint pain, or myalgia. NEUROLOGIC: Denies headache, numbness, or weakness. PSYCHIATRIC: Denies anxiety or depression. [facility] Past Medical History Medical History JAQUELINE positive (2018) Aortic stenosis Arthritis Atrial fibrillation Diffuse idiopathic skeletal hyperostosis Lymphedema Nonspecific interstitial pneumonia Obstructive sleep apnea on CPAP Osteoarthritis Pulmonary hypertension Warfarin anticoagulation Surgical History Surgical History History of aortic valve replacement with bioprosthetic valve History of bilateral carpal tunnel release History of cardiac catheterization
[2024-01-02] VITALS (9 sets, daily range): BP systolic 105–139; BP diastolic 55–75; PULSE 65–86; RESP 15–20; TEMP 36.4–37.1; O2SAT 94–99; BMI 57.1
--- NOTE | 2024-01-02 | ECHO_ITS ---
Patient Info Name: Leigha Wetzel Age: 78 years : 1945 Gender: Female Ht: 66 in Wt: 353 lbs BSA: 2.83 m2 HR: 86 bpm BP: 139 / 61 mmHg Heart Rhythm: Atrial Fibrillation Technical Quality: Fair Exam Date: 01/02/2024 11:01 AM Exam Location: Echo Lab Patient Status: Inpatient Admit Date: 01/02/2024 Staff Ordering Physician: Jennie De León APRN Piggyback Clerk: Desi Lim RDCS Attending Provider: Diann Luna DO Referring Physician: Sarthak ORTIZ; Exam Type: CA echo doppler color flow Study Info Indications - chf Complete two-dimensional, color flow and Doppler transthoracic echocardiogram is performed. Summary 1. Complete two-dimensional, color flow and Doppler transthoracic echocardiogram is performed. 2. Left ventricular chamber dimension is normal. 3. Left ventricular systolic function is normal, estimated at 60-65%. 4. There is mildly increased left ventricular wall thickness. 5. Right ventricular systolic function is normal. 6. Left atrial chamber dimension is severely enlarged. 7. Right atrial chamber dimension is severely enlarged. 8. S/p TAVR. Mean gradient of 13mmHg. Left Ventricle Left ventricular chamber dimension is normal. Left ventricular systolic function is normal, estimated at 60-65%. There is mildly increased left ventricular wall thickness. Right Ventricle Right ventricular chamber dimension is normal. Right ventricular systolic function is normal. Left Atria Left atrial chamber dimension is severely enlarged. Right Atria Right atrial chamber dimension is severely enlarged. Aortic Valve S/p TAVR. Mean gradient of 13mmHg. The aortic valve is not well visualized. There is no aortic valve regurgitation. Pulmonic Valve The pulmonic valve is not well visualized. Mitral Valve There is trace mitral valve regurgitation. The mitral valve annulus is mildly calcified. Tricuspid Valve There is trace tricuspid valve regurgitation. Pericardium/Pleural There is no pericardial effusion. Inferior Vena Cava Inferior vena cava is not well visualized. Aorta The aortic root size at the sinus of Valsalva is normal. Left Ventricular Outflow Tract Name Value Normal LVOT 2D LVOT Diameter 2.1 cm LVOT Doppler LVOT Peak Gradient 2 mmHg LVOT Mean Gradient 2 mmHg LVOT VTI 17 cm LVOT VTI/AV VTI Ratio 0.3 LVOT Stroke Volume 59 ml LVOT CO 4.8 l/min LVOT CI 1.7 l/min/m2 Pulmonic Valve Name Value Normal RVOT Doppler RVOT Peak Gradient 1 mmHg PV Doppler PV Peak Gradient 6 mmHg Mitral Valve Name
[2024-01-02] MEDS: FUROSEMIDE INJ 40 MG/4 ML VIAL IV PUSH (01:33)
[2024-01-02 01:42] LABS: Basophils Absolute Auto 0.1 K/mm3 (0.0-0.1); Basophils Percent Auto 0.8 % (0.2-1.2); Eosinophils Absolute Auto 0.4 K/mm3 (0-0.3); Eosinophils Percent Auto 4.4 % (0-4.4); Hemoglobin 9.3 g/dL (12.0-15.0); Immature Granulocyte Absolute 0.04 K/mm3 (0.00-0.031); Immature Granulocyte Percent A 0.5 % (0-0.5); Lymphocytes Absolute Auto 0.81 K/mm3 (0.9-3.2); Lymphocytes Percent Auto 9.7 % (18.3-44.2); Mean Corpuscular Hemoglobin 25.1 pg (26-34); Mean Corpuscular Volume 83.6 fl (80-100); Monocytes Percent Auto 12.3 % (2.6-8.5); Neutrophils Percent Auto 72.3 % (45.5-73.1); Platelet Count Result 201 k/mm3 (150-375); Red Blood Count 3.71 M/mm3 (4.2-5.4); Red Cell Distribution Width 17.7 % (11.5-14.5); White Blood Count 8.4 K/mm3 (4.5-10.0)
[2024-01-02 01:52] LABS: INR 3.2; Prothrombin Time 35.2 Seconds (11.1-14.7)
[2024-01-02 01:53] LABS: Partial Thromboplastin Time 41.2 Seconds (22.3-36.8)
[2024-01-02 01:56] LABS: Lactic Acid Reflex 0.8 mmol/L (0.7-2.0)
[2024-01-02 01:59] LABS: Alanine Aminotransferase 16 U/L (6-35); Albumin Level 3.8 g/dL (3.5-5.1); Alkaline Phosphatase 68 U/L (38-126); Anion Gap 5 mmol/L (4-12); Aspartate Amino Transferase 16 U/L (14-36); Bilirubin,Total 0.7 mg/dL (0.2-1.3); Blood Urea Nitrogen 26 mg/dL (7-17); CRP 2.3 mg/dL (<1.0); Calcium 9.2 mg/dL (8.4-10.2); Carbon Dioxide 29 mmol/L (22-30); Chloride 108 mmol/L (98-107); Estimated CRCL calculation 91 ml/min; Estimated Glomerular Filt Rate > 60; Glucose 138 mg/dL (65-110); Potassium 4.1 mmol/L (3.4-5.0); Sodium 142 mmol/L (137-145)
[2024-01-02 02:06] LABS: NT Pro B Type Natriuretic Pept 1400 pg/mL (19.9-100)
[2024-01-02 02:11] LABS: Erythrocyte Sedimentation Rate 140 mm/hr (0-20)
[2024-01-02] MEDS: ceFAZolin 1 GM/NS 50 ML 1 GM/50 ML BAG IVPB ×3 (03:08→18:29)
[2024-01-02] MEDS: VANCOMYCIN 1,500 MG/NS 500 ML 1,500 MG/500 ML BAG 250 MG IVPB ×2 (03:19→15:05)
[2024-01-02 04:35] LABS: MRSA (PCR) NOT DETECTED (NOT DETECTE)
--- NOTE | 2024-01-02 05:27 | ADMGEN ---
This patient, Leigha Wetzel, was admitted to [facility] Surg Room 302-01. Patient/family oriented to hospital policies and general routines including ID bracelet, bed and alarms, visiting hours, pain management, procedures, bathroom and other care routines, personal items, smoking policy, room service/diet, and visiting hours. Information on how to activate the Rapid Response Team has been discussed. Patient/Family are encouraged to report perceived risks to care and to ask questions if they do not understand what they are told or what they should do.
[2024-01-02] MEDS: traMADol HCL (*CRX) 50 MG TABLET PO ×3 (05:43→20:00)
--- NOTE | 2024-01-02 07:46 | PM.IMHP ---
H&P: HPI History of Present Illness Date/Time: 01/02/24 07:46 Chief Complaint: cellulitis LLE lymphedema CHF exacerbation Narrative: 78-year-old female here for cellulitis to her left lower extremity.? She was recently provided a course of Keflex for her right lower extremity from her PCP- which she completed. tachycardia 111 which has since resolved since ER.? Patient is afebrile. Of note, she was hospitalized in octobe r2023 for cellulitis to RLE fir which she completed antibiotic tehrapy. CBC unremarkable and a stable hemoglobin.? Chemistries with a BUN of 26, otherwise unremarkable.? CRP is elevated 2.3 and ESR is elevated to 140.? Lactic acid is normal at 0.8.? BNP also elevated to 1400.? Chest x-ray reveals pulmonary edema.? X-rays of the left foot, left tib-fib, right foot without evidence of gas.? EKG shows atrial fibrillation with rate of 70 review p.m., normal QTC of 449, no ST elevations or depressions. She is admitted for IV antibiotics and diuresis.? She was started on cefazolin and vancomycin for cellulitis and given 40 mg of IV Lasix.? She is following with pullmonology- [facility]12/21/22, DR Gomez for her COPD She is supposed to be on Cpap- but not compliant with treatment Following with cardiology from [facility] group- [facility]01/26/22. Last ECHO ([facility]) 12/20/20 with normal EF. On warfarin but not compliant with labs. Skips labs draw. Taks 8 mg daily and on sunday or -takes 5 mg. Review of Systems ENT: Reports system reviewed and no additional complaints, except as documented Cardiovascular: Cardiovascular: Reports leg edema Respiratory: Respiratory: Reports cough and Reports dyspnea Comments: non complaint with Cpap Gastrointestinal: Gastrointestinal: Denies abdominal pain, Denies melena, Denies constipation, Denies heartburn, Denies nausea and Denies vomiting Genitourinary: Genitourinary: Denies urinary frequency and Denies urinary incontinence Musculoskeletal: Comments: difficulties with ambulation due to leg swelling reports BLE neuropathy- take pregabalin -generalized weakness- takes tramadol Integumentary/Breasts: Comments: painful to touch and weeping to legs, worse to left Neurologic: Denies Abnormal speech present Psychiatric: Psychiatric: Reports anxiety PMFSH Past Medical History Medical History JAQUELINE positive (2018) Aortic stenosis Arthritis Atrial fibrillation Diffuse idiopathic skeletal hyperostosis Lymphedema Nonspecific interstitial pneumonia Obstructive sleep apnea on CPAP Osteoarthritis Pulmonary hypertension Warfarin anticoagulation Surgical History Surgical History History of aortic valve replacement with bioprosthetic valve History of bilateral carpal tunnel release History of cardiac catheterization History of colonoscopy with polypectomy History of dilatation and curettage Family History Family History Mother Cerebrovascular accident, Onset Age: 89 Heart disease Father Patient's father is , Onset Age: 80 Sibling Diabetes mellitus Social History Social History Social History: Surrogate medical decision maker: Yudelka Cruz, daughter. Code status: Full code. Smoking status: Never smoker Second hand tobacco smoke exposure: No Alcohol intake: never Substance use: never Substance use type: does not use Do You Feel Safe in your Home?: Yes Lack of Transportation: No Lack of Food: Never True Current Housing: I Have Housing Concerned About Future Housing: No Difficulty Paying Gas/Electric Bills: No Difficulty Paying for Meds: No Currently Unemployed: No Education: Grade School Difficulty w/ Childcare or Family Care: No Spiritual care concerns: No Meds Home Medi
[2024-01-02 08:44] LABS: Hemoglobin A1C 6.4 % (<5.7)
[2024-01-02] MEDS: BUDESONIDE RESPULE NEB 0.5 MG/2 ML AMP INHALATION (09:04)
[2024-01-02] MEDS: FUROSEMIDE 20 MG TABLET 60 MG PO (09:11)
[2024-01-02] MEDS: CHOLECALCIFEROL 1,000 UNITS TABLET 2000 UNITS PO (09:11)
[2024-01-02] MEDS: CYANOCOBALAMIN 500 MCG TABLET PO (09:12)
[2024-01-02] MEDS: METOPROLOL SUCCINATE EXT REL 50 MG TABCR PO (09:12)
[2024-01-02] MEDS: CALCIUM CARBONATE (OSCAL) 500 MG TABLET PO (09:12)
[2024-01-02] MEDS: FERROUS SULFATE 325 MG TABLET DR PO (09:12)
[2024-01-02] MEDS: POTASSIUM CHLORIDE 20 MEQ ER TABLET PO (09:12)
[2024-01-02] MEDS: WARFARIN (*PBKC) 4 MG TABLET PO (16:59)
[2024-01-02] MEDS: WARFARIN (*PBKC) 2 MG TABLET PO (16:59)
[2024-01-02] MEDS: PREGABALIN (*CRX) 75 MG CAPSULE PO (21:00)
[2024-01-02] MEDS: GABAPENTIN 300 MG CAPSULE PO (22:51)
[2024-01-02] MEDS: MORPHINE SULFATE (*CRX) 4 MG/ML INJ IV PUSH (22:51)
[2024-01-03] VITALS (7 sets, daily range): BP systolic 107–115; BP diastolic 45–52; PULSE 63–86; RESP 13–20; TEMP 36.5–37.5; O2SAT 91–95
[2024-01-03] MEDS: traZODone HCL 50 MG TABLET PO (00:31)
[2024-01-03] MEDS: ceFAZolin 1 GM/NS 50 ML 1 GM/50 ML BAG IVPB ×3 (04:03→18:41)
[2024-01-03] MEDS: VANCOMYCIN 1,500 MG/NS 500 ML 1,500 MG/500 ML BAG 250 MG IVPB ×2 (04:04→16:33)
[2024-01-03 05:41] LABS: INR 3.1; Prothrombin Time 34.5 Seconds (11.1-14.7)
[2024-01-03 05:44] LABS: Estimated CRCL calculation 79 ml/min; Estimated Glomerular Filt Rate > 60
--- NOTE | 2024-01-03 07:18 | PM.IMPN ---
Progress Note: A&P Assessment and Plan (1) Cellulitis: Qualifiers: Site of cellulitis of extremity: lower extremity Qualified Code(s): L03.119 - Cellulitis of unspecified part of limb Code(s): L03.90 - Cellulitis, unspecified Status: Acute (2) CHF exacerbation: Qualifiers: Heart failure type: unspecified Qualified Code(s): I50.9 - Heart failure, unspecified Code(s): I50.9 - Heart failure, unspecified Status: Acute (3) Lymphedema: Code(s): I89.0 - Lymphedema, not elsewhere classified Status: Acute (4) Obstructive sleep apnea on CPAP: Code(s): G47.33 - Obstructive sleep apnea (adult) (pediatric) Status: Acute (5) Chronic atrial fibrillation: Code(s): I48.20 - Chronic atrial fibrillation, unspecified Status: Acute (6) Obesity: Code(s): E66.9 - Obesity, unspecified Status: Acute (7) Warfarin anticoagulation: Code(s): Z79.01 - group home (current) use of anticoagulants Status: Acute (8) A-fib: Code(s): I48.91 - Unspecified atrial fibrillation Status: Chronic (9) Pulmonary hypertension: Code(s): I27.20 - Pulmonary hypertension, unspecified Status: Chronic (10) Prediabetes: Code(s): R73.03 - Prediabetes Status: Acute (11) Noncompliance: Code(s): Z91.199 - Patient's noncompliance with other medical treatment and regimen due to unspecified reason Status: Acute Plan # cellulitis BLE # lymphedema - IV Cefazolin, vanc- pharmacy to monitor troph/doses - LLE culture- collected 01/02/24-pending result - [facility] - ultrasound doppler to r/u DVT-completed 01/02/24- negative - will need vascular f/u as outpt -trend CBC, BMP - stable WBC, stable HG # CHF # pulm edema - metoprolol, lasix - tele - continue with 60 mg po lasix - continue 10 mg empagliflozin - echo completed EF 60-65% -will need f/u out cards out - on statin # Afib # half-way use of anticoag - not compliant with labs draws at home- so prob had not been at goal - on metoprolol- will continue - tele monitoring - INR is 3.1 today, 01/02/24- dose was decreased to 6 mg daily yesterday - will conitnue 6 mg daily for now - trend INR - fall/bleeding precaution - need close monitoring and f/u with card upon discharge - PCP/card following INR and warfarin dosage # prediabetes - hgA1C 6.4 on 01/02/24 - on 10 mg empagliflozin PO # ALISON - will continue Cpap # COPD - albuterol prn, symbicort - continue home regiment - monitor spo2 with vitals - IS # neuropathy - lyrica 75 mg daily- will increase to BID for better neuropathy control - still some pain- will add Acetaminophen prn FEN:? GI prophylaxis:? Not indicated DVT prophylaxis:? on warfarin Lines:? Peripheral IV Code Status:? Full code Dispo:?anticipated discharge back home Time Spent With Patient Time with patient: 25 - 35 minutes Subjective Date/time seen: 01/03/24 07:18 Interval history: 01/02- ECCO done- EF 60-65%. NO event overnight Review of Systems ENT: Reports system reviewed and no additional complaints, except as documented Cardiovascular: Cardiovascular: Reports leg edema and Reports dyspnea Respiratory: Respiratory: Reports cough and Reports dyspnea Gastrointestinal: Gastrointestinal: Denies abdominal pain, Denies melena, Denies constipation, Denies heartburn, Denies nausea and Denies vomiting Genitourinary: Genitourinary: Denies urinary frequency and Denies urinary incontinence Musculoskeletal: Musculoskeletal: Reports myalgias and Reports arthralgias Comments: baseline Integumentary/Breasts: Skin/Breast: Reports erythema and Reports skin pain Neurologic: Denies Abnormal speech present Psychiatric: Psychiatric: Reports anxiety Exam Narrative: pt is seen and examined at the bed side. Pt is alert and oriented, appears in no respiratory distress. Const: General: comfortable Eyes: General:
[2024-01-03 07:43] LABS: Hematocrit 32.1 % (37.0-47.0); Hemoglobin 9.3 g/dL (12.0-15.0); Mean Corpuscular Hemoglobin 25.1 pg (26-34); Mean Corpuscular Volume 86.5 fl (80-100); Mean Platelet Volume 11.7 fl (7.4-10.4); Platelet Count Result 192 k/mm3 (150-375); Red Blood Count 3.71 M/mm3 (4.2-5.4); Red Cell Distribution Width 17.9 % (11.5-14.5); White Blood Count 7.2 K/mm3 (4.5-10.0)
[2024-01-03 07:44] LABS: Anion Gap 3 mmol/L (4-12); Blood Urea Nitrogen 24 mg/dL (7-17); Calcium 8.8 mg/dL (8.4-10.2); Carbon Dioxide 31 mmol/L (22-30); Chloride 105 mmol/L (98-107); Estimated CRCL calculation 71 ml/min; Estimated Glomerular Filt Rate > 60; Glucose 127 mg/dL (65-110); Potassium 4.4 mmol/L (3.4-5.0); Sodium 139 mmol/L (137-145)
[2024-01-03] MEDS: CALCIUM CARBONATE (OSCAL) 500 MG TABLET PO (08:58)
[2024-01-03] MEDS: POTASSIUM CHLORIDE 20 MEQ ER TABLET PO (08:58)
[2024-01-03] MEDS: EMPAGLIFLOZIN 10 MG TABLET PO (08:59)
[2024-01-03] MEDS: FUROSEMIDE 20 MG TABLET 60 MG PO (08:59)
[2024-01-03] MEDS: ATORVASTATIN 10 MG TABLET PO (08:59)
[2024-01-03] MEDS: METOPROLOL SUCCINATE EXT REL 50 MG TABCR PO (08:59)
[2024-01-03] MEDS: CHOLECALCIFEROL 1,000 UNITS TABLET 2000 UNITS PO (08:59)
[2024-01-03] MEDS: CYANOCOBALAMIN 500 MCG TABLET PO (08:59)
[2024-01-03] MEDS: FERROUS SULFATE 325 MG TABLET DR PO (08:59)
[2024-01-03] MEDS: BUDESONIDE RESPULE NEB 0.5 MG/2 ML AMP INHALATION (09:39)
[2024-01-03 15:27] LABS: Vancomycin Trough 13.5 ug/mL (10.0-20.0)
[2024-01-03] MEDS: WARFARIN (*PBKC) 2 MG TABLET PO (16:34)
[2024-01-03] MEDS: WARFARIN (*PBKC) 4 MG TABLET PO (16:34)
[2024-01-03] MEDS: MELATONIN 3 MG TABLET PO (20:22)
[2024-01-03] MEDS: traMADol HCL (*CRX) 50 MG TABLET PO (20:23)
[2024-01-04] MEDS: ceFAZolin 1 GM/NS 50 ML 1 GM/50 ML BAG IVPB ×3 (03:42→20:57)
[2024-01-04] MEDS: VANCOMYCIN 1,500 MG/NS 500 ML 1,500 MG/500 ML BAG 250 MG IVPB (04:11)
[2024-01-04 04:19] VITALS: BP 116/52; PULSE 66; RESP 18; TEMP 37.4; O2SAT 92
[2024-01-04 06:06] LABS: Estimated CRCL calculation 90 ml/min; Estimated Glomerular Filt Rate > 60
[2024-01-04 06:19] LABS: INR 3.2; Prothrombin Time 35.2 Seconds (11.1-14.7)
--- NOTE | 2024-01-04 08:08 | PM.IMPN ---
Progress Note: A&P Assessment and Plan (1) Cellulitis: Qualifiers: Site of cellulitis of extremity: lower extremity Qualified Code(s): L03.119 - Cellulitis of unspecified part of limb Code(s): L03.90 - Cellulitis, unspecified Status: Acute (2) CHF exacerbation: Qualifiers: Heart failure type: unspecified Qualified Code(s): I50.9 - Heart failure, unspecified Code(s): I50.9 - Heart failure, unspecified Status: Acute (3) Lymphedema: Code(s): I89.0 - Lymphedema, not elsewhere classified Status: Acute (4) Obstructive sleep apnea on CPAP: Code(s): G47.33 - Obstructive sleep apnea (adult) (pediatric) Status: Acute (5) Chronic atrial fibrillation: Code(s): I48.20 - Chronic atrial fibrillation, unspecified Status: Acute (6) Obesity: Code(s): E66.9 - Obesity, unspecified Status: Acute (7) Warfarin anticoagulation: Code(s): Z79.01 - [facility] (current) use of anticoagulants Status: Acute (8) A-fib: Code(s): I48.91 - Unspecified atrial fibrillation Status: Chronic (9) Pulmonary hypertension: Code(s): I27.20 - Pulmonary hypertension, unspecified Status: Chronic (10) Prediabetes: Code(s): R73.03 - Prediabetes Status: Acute (11) Noncompliance: Code(s): Z91.199 - Patient's noncompliance with other medical treatment and regimen due to unspecified reason Status: Acute Plan # cellulitis BLE # lymphedema - IV Cefazolin, vanc- pharmacy to monitor troph/doses - LLE culture- collected 01/02/24-pending result - [facility] - ultrasound doppler to r/u DVT-completed 01/02/24- negative - will need vascular f/u as outpt -trend CBC, BMP - stable WBC, stable HG - blood culture- neg -wound culture - prelim.result: no WBC, many Gram negative bacilli - continue antibiotics - erythema margins on lt ankle improving # CHF # pulm edema - metoprolol, lasix - tele - continue with 60 mg po lasix - continue 10 mg empagliflozin - echo completed EF 60-65% -will need f/u out cards out - on statin - if pt is agreeable- will optimize CHF management prior to discharge #s/p aortic valve replacement # Afib # [facility] use of anticoag - not compliant with labs draws at home- so prob had not been at goal - on metoprolol- will continue - tele monitoring - INR is 3.2 today- will decrease dose to 5 mg (goal 2-3) - trend INR - fall/bleeding precaution - need close monitoring and f/u with card upon discharge - will need card f/u as havenot been seen in a while # prediabetes - hgA1C 6.4 on 01/02/24 - on 10 mg empagliflozin PO - BS elevated in the hospital- will order cons. carb diet # ALISON - will continue Cpap # COPD - albuterol prn, symbicort - continue home regiment - monitor spo2 with vitals - IS - up to te chair # neuropathy - lyrica 75 mg BID - Acetaminophen prn FEN:? GI prophylaxis:? Not indicated DVT prophylaxis:? on warfarin Lines:? Peripheral IV Code Status:? Full code Dispo:?anticipated discharge back home if cleared with PT Subjective Date/time seen: 01/04/24 08:08 Interval history: 01/02- EChO done- EF 60-65%. NO event overnight 01/03- working with pT today, was able to get up to the chair. Erythema improving. She is in a good spirit. Review of Systems Constitutional: Constitutional: Reports no additional constitutional complaints ENT: Reports system reviewed and no additional complaints, except as documented Cardiovascular: Cardiovascular: Denies chest pain, Denies diaphoresis, Reports leg edema and Reports dyspnea Respiratory: Respiratory: Denies cough and Denies dyspnea Comments: breathing a lot better Gastrointestinal: Gastrointestinal: Denies abdominal pain, Denies melena, Denies constipation, Denies heartburn, Denies nausea and Denies vomiting Genitourinary: Genitourinary: Denies urinary frequency and Denies urinary incontinence Musculos
[2024-01-04] MEDS: FUROSEMIDE 20 MG TABLET 60 MG PO (08:21)
[2024-01-04] MEDS: CALCIUM CARBONATE (OSCAL) 500 MG TABLET PO (08:21)
[2024-01-04] MEDS: POTASSIUM CHLORIDE 20 MEQ ER TABLET PO (08:21)
[2024-01-04] MEDS: EMPAGLIFLOZIN 10 MG TABLET PO (08:21)
[2024-01-04] MEDS: CYANOCOBALAMIN 500 MCG TABLET PO (08:21)
[2024-01-04] MEDS: METOPROLOL SUCCINATE EXT REL 50 MG TABCR PO (08:21)
[2024-01-04] MEDS: traMADol HCL (*CRX) 50 MG TABLET PO (08:21)
[2024-01-04] MEDS: FERROUS SULFATE 325 MG TABLET DR PO (08:21)
[2024-01-04] MEDS: ATORVASTATIN 20 MG TABLET PO (08:21)
[2024-01-04] MEDS: CHOLECALCIFEROL 1,000 UNITS TABLET 2000 UNITS PO (08:21)
[2024-01-04] MEDS: BUDESONIDE RESPULE NEB 0.5 MG/2 ML AMP INHALATION (09:05)
[2024-01-04 09:07] VITALS: PULSE 68; RESP 20; O2SAT 93
[2024-01-04 09:19] VITALS: PULSE 60; RESP 20
[2024-01-04] MEDS: PREGABALIN (*CRX) 75 MG CAPSULE PO ×2 (09:55→16:32)
[2024-01-04 14:00] VITALS: BP 122/54; PULSE 63; RESP 18; TEMP 36.2; O2SAT 96
[2024-01-04] MEDS: WARFARIN (*PBKC) 4 MG TABLET PO (16:32)
[2024-01-04] MEDS: VANCOMYCIN 1,500 MG/NS 500 ML 1,500 MG/500 ML BAG 175 MG IVPB (16:32)
[2024-01-04] MEDS: WARFARIN (*PBKC) 1 MG TABLET PO (16:32)
[2024-01-04 20:37] VITALS: BP 123/56; PULSE 73; RESP 18; TEMP 37.1; O2SAT 95
[2024-01-05] VITALS (14 sets, daily range): BP systolic 102–128; BP diastolic 54–68; PULSE 62–84; RESP 17–20; TEMP 36.6–37; O2SAT 92–96
[2024-01-05] MEDS: ceFAZolin 1 GM/NS 50 ML 1 GM/50 ML BAG IVPB (02:37)
[2024-01-05] MEDS: SODIUM CHLORIDE 0.9% IV 100 ML (02:37)
[2024-01-05] MEDS: traMADol HCL (*CRX) 50 MG TABLET PO ×2 (04:55→22:07)
[2024-01-05 04:59] LABS: Estimated CRCL calculation 90 ml/min; Estimated Glomerular Filt Rate > 60; Prothrombin Time 33.6 Seconds (11.1-14.7)
[2024-01-05 05:09] LABS: Vancomycin Trough 14.7 ug/mL (10.0-20.0)
[2024-01-05] MEDS: VANCOMYCIN 1,500 MG/NS 500 ML 1,500 MG/500 ML BAG 200 MG IVPB (06:11)
[2024-01-05] MEDS: BUDESONIDE RESPULE NEB 0.5 MG/2 ML AMP INHALATION (07:50)
--- NOTE | 2024-01-05 09:07 | PM.IMPN ---
Progress Note: A&P Assessment and Plan (1) Cellulitis: Qualifiers: Site of cellulitis of extremity: lower extremity Qualified Code(s): L03.119 - Cellulitis of unspecified part of limb Code(s): L03.90 - Cellulitis, unspecified Status: Acute (2) CHF exacerbation: Qualifiers: Heart failure type: unspecified Qualified Code(s): I50.9 - Heart failure, unspecified Code(s): I50.9 - Heart failure, unspecified Status: Acute (3) Lymphedema: Code(s): I89.0 - Lymphedema, not elsewhere classified Status: Acute (4) Obstructive sleep apnea on CPAP: Code(s): G47.33 - Obstructive sleep apnea (adult) (pediatric) Status: Acute (5) Chronic atrial fibrillation: Code(s): I48.20 - Chronic atrial fibrillation, unspecified Status: Acute (6) Obesity: Code(s): E66.9 - Obesity, unspecified Status: Acute (7) Warfarin anticoagulation: Code(s): Z79.01 - halfway (current) use of anticoagulants Status: Acute (8) A-fib: Code(s): I48.91 - Unspecified atrial fibrillation Status: Chronic (9) Pulmonary hypertension: Code(s): I27.20 - Pulmonary hypertension, unspecified Status: Chronic (10) Prediabetes: Code(s): R73.03 - Prediabetes Status: Acute (11) Noncompliance: Code(s): Z91.199 - Patient's noncompliance with other medical treatment and regimen due to unspecified reason Status: Acute Plan # cellulitis BLE # lymphedema - IV Cefazolin, vanc- pharmacy to monitor troph/doses - LLE culture- collected 01/02/24-pending result - [facility] - ultrasound doppler to r/u DVT-completed 01/02/24- negative - will need vascular f/u as outpt -trend CBC, BMP - stable WBC, stable HG - blood culture- neg -wound culture - prelim.result: no WBC, many Gram negative bacilli - continue antibiotics - erythema margins on lt ankle improving 01/04: -wound culture growing pseudomonas, sensitivities pending. - D/C cefazolin and started cefepime - D/C vanco as wound culture with gram negative bacilli only -still with diffuse erythema, warmth, and pain # CHF # pulm edema - metoprolol, lasix - tele - continue with 60 mg po lasix - continue 10 mg empagliflozin - echo completed EF 60-65% -will need f/u out cards out - on statin - if pt is agreeable- will optimize CHF management prior to discharge 01/04: -UOP 1150 ml, net + 290 ml -added daily weight order -strict I&O -diuresed with IV Lasix 40 mg now -Guerrero catheter placed for accurate I and O -added tele while diuresis -EKG now given chest heaviness -BNP, trop ordered # possible pneumonia seen on x-ray # patient with congested cough -already on cefepime for cellulitis. Added azithromycin -guaifenesin b.i.d. -p.r.n. oxygen to keep sats greater than 90% -incentive spirometry and Pep -sputum culture if able -nebs Q 6 hour scheduled #s/p aortic valve replacement # Afib # intermediate use of anticoag - not compliant with labs draws at home- so prob had not been at goal - on metoprolol- will continue - tele monitoring - INR is 3.2 today- will decrease dose to 5 mg (goal 2-3) - trend INR - fall/bleeding precaution - need close monitoring and f/u with card upon discharge - will need card f/u as havenot been seen in a while 01/04: - INR 3.0 today - continue warfarin at current dose - follow up INR in 3-5 days if d/c # prediabetes - hgA1C 6.4 on 01/02/24 - on 10 mg empagliflozin PO - BS elevated in the hospital- will order cons. carb diet # ALISON - will continue Cpap # COPD - albuterol prn, symbicort - continue home regiment - monitor spo2 with vitals - IS - up to te chair # neuropathy - lyrica 75 mg BID - Acetaminophen prn FEN:? GI prophylaxis:? Not indicated DVT prophylaxis:? on warfarin Lines:? Peripheral IV Code Status:? Full code Dispo:?anticipated discharge back home if cleared with PT Subjective Date/time seen:
[2024-01-05] MEDS: CHOLECALCIFEROL 1,000 UNITS TABLET 2000 UNITS PO (09:14)
[2024-01-05] MEDS: METOPROLOL SUCCINATE EXT REL 50 MG TABCR PO (09:14)
[2024-01-05] MEDS: CALCIUM CARBONATE (OSCAL) 500 MG TABLET PO (09:14)
[2024-01-05] MEDS: EMPAGLIFLOZIN 10 MG TABLET PO (09:14)
[2024-01-05] MEDS: CYANOCOBALAMIN 500 MCG TABLET PO (09:15)
[2024-01-05] MEDS: POTASSIUM CHLORIDE 20 MEQ ER TABLET PO (09:15)
[2024-01-05] MEDS: PREGABALIN (*CRX) 75 MG CAPSULE PO ×2 (09:15→17:21)
[2024-01-05] MEDS: ATORVASTATIN 20 MG TABLET PO (09:15)
[2024-01-05] MEDS: FERROUS SULFATE 325 MG TABLET DR PO (09:15)
[2024-01-05] MEDS: FUROSEMIDE 20 MG TABLET 60 MG PO (09:15)
[2024-01-05 09:21] LABS: Basophils Absolute Auto 0.1 K/mm3 (0.0-0.1); Basophils Percent Auto 0.7 % (0.2-1.2); Eosinophils Absolute Auto 0.5 K/mm3 (0-0.3); Eosinophils Percent Auto 6.7 % (0-4.4); Hematocrit 33.9 % (37.0-47.0); Immature Granulocyte Absolute 0.03 K/mm3 (0.00-0.031); Immature Granulocyte Percent A 0.4 % (0-0.5); Lymphocytes Absolute Auto 0.58 K/mm3 (0.9-3.2); Lymphocytes Percent Auto 8.4 % (18.3-44.2); Mean Corpuscular HGB Conc 29.5 g/dl (32-36); Mean Corpuscular Hemoglobin 25.3 pg (26-34); Mean Corpuscular Volume 85.6 fl (80-100); Mean Platelet Volume 11.8 fl (7.4-10.4); Monocytes Absolute Auto 0.9 K/mm3 (0.1-0.6); Monocytes Percent Auto 13.4 % (2.6-8.5); Neutrophils Absolute Auto 4.8 K/mm3 (1.3-6.7); Neutrophils Percent Auto 70.4 % (45.5-73.1); Platelet Count Result 218 k/mm3 (150-375); Red Blood Count 3.96 M/mm3 (4.2-5.4); Red Cell Distribution Width 17.4 % (11.5-14.5); White Blood Count 6.9 K/mm3 (4.5-10.0)
[2024-01-05 09:30] LABS: Alanine Aminotransferase 11 U/L (6-35); Albumin Level 3.6 g/dL (3.5-5.1); Alkaline Phosphatase 71 U/L (38-126); Anion Gap 5 mmol/L (4-12); Aspartate Amino Transferase 16 U/L (14-36); Bilirubin,Total 0.5 mg/dL (0.2-1.3); Blood Urea Nitrogen 20 mg/dL (7-17); Carbon Dioxide 31 mmol/L (22-30); Chloride 105 mmol/L (98-107); Estimated CRCL calculation 90 ml/min; Estimated Glomerular Filt Rate > 60; Glucose 118 mg/dL (65-110); Magnesium 2.1 mg/dL (1.6-2.3); Potassium 4.3 mmol/L (3.4-5.0); Sodium 141 mmol/L (137-145)
[2024-01-05] MEDS: CEFEPIME 2 GM/NS 50 ML 2 GM/50 ML BAG IVPB ×2 (09:39→22:08)
[2024-01-05] MEDS: ALBUTEROL SULFATE NEB 2.5 MG/3 ML INH INHALATION ×2 (10:08→20:36)
--- NOTE | 2024-01-05 11:23 | PCPTNOTE ---
Patient declined PT stating she has been awake since 0100 and has been trying to take a nap all morning. Patient states every time she starts to fall asleep someone comes in the room. PT will continue to follow per plan of care.
--- NOTE | 2024-01-05 12:22 | ECG_ITS ---
SEE SCANNED COPY FOR CONFIRMED REPORT MTDD
[2024-01-05 13:17] LABS: NT Pro B Type Natriuretic Pept 1690 pg/mL (19.9-100); Troponin I < 0.012 ng/mL (0.000-0.034)
[2024-01-05] MEDS: IPRATROPIUM 0.5 MG/ALBUTEROL SULFATE 2.5 MG AMPUL.NEB 3 ML (13:47)
[2024-01-05] MEDS: FUROSEMIDE INJ 40 MG/4 ML VIAL IV PUSH (14:00)
[2024-01-05] MEDS: AZITHROMYCIN 500 MG/NS 250 ML 500 MG/250 ML BAG 250 MG IVPB (14:00)
--- NOTE | 2024-01-05 14:06 | PC.NURSE ---
On 01/05/24, the COMPENSATION ADMINISTRATOR, , provided care and completed [facility] documentation on this patient. I have reviewed the COMPENSATION ADMINISTRATOR's documentation and agree with the findings.
[2024-01-05] MEDS: WARFARIN (*PBKC) 1 MG TABLET PO (17:21)
[2024-01-05] MEDS: WARFARIN (*PBKC) 4 MG TABLET PO (17:21)
[2024-01-05] MEDS: ACETAMINOPHEN 500 MG TABLET PO (22:07)
[2024-01-05] MEDS: guaiFENesin 12 HR 600 MG TABCR 1200 MG PO (22:08)
[2024-01-05] MEDS: SODIUM CHLORIDE 0.9% IV 100 ML 10 ML (22:08)
[2024-01-05] MEDS: MELATONIN 3 MG TABLET PO (22:08)
[2024-01-06] VITALS (14 sets, daily range): BP systolic 104–127; BP diastolic 56–73; PULSE 58–78; RESP 18; TEMP 36.4–36.5; O2SAT 92–97
[2024-01-06] MEDS: ALBUTEROL SULFATE NEB 2.5 MG/3 ML INH INHALATION ×4 (02:39→20:02)
[2024-01-06 05:16] LABS: Basophils Absolute Auto 0.1 K/mm3 (0.0-0.1); Eosinophils Absolute Auto 0.5 K/mm3 (0-0.3); Eosinophils Percent Auto 7.1 % (0-4.4); Hematocrit 32.1 % (37.0-47.0); Hemoglobin 9.5 g/dL (12.0-15.0); Immature Granulocyte Absolute 0.04 K/mm3 (0.00-0.031); Immature Granulocyte Percent A 0.5 % (0-0.5); Lymphocytes Absolute Auto 0.83 K/mm3 (0.9-3.2); Lymphocytes Percent Auto 11.3 % (18.3-44.2); Mean Corpuscular HGB Conc 29.6 g/dl (32-36); Mean Corpuscular Volume 84.5 fl (80-100); Mean Platelet Volume 11.1 fl (7.4-10.4); Monocytes Absolute Auto 1.2 K/mm3 (0.1-0.6); Monocytes Percent Auto 15.9 % (2.6-8.5); Neutrophils Absolute Auto 4.7 K/mm3 (1.3-6.7); Neutrophils Percent Auto 64.2 % (45.5-73.1); Platelet Count Result 206 k/mm3 (150-375); Red Cell Distribution Width 17.5 % (11.5-14.5); White Blood Count 7.4 K/mm3 (4.5-10.0)
[2024-01-06 05:25] LABS: Alanine Aminotransferase 10 U/L (6-35); Albumin Level 3.5 g/dL (3.5-5.1); Alkaline Phosphatase 67 U/L (38-126); Anion Gap 1 mmol/L (4-12); Aspartate Amino Transferase 15 U/L (14-36); Bilirubin,Total 0.4 mg/dL (0.2-1.3); Blood Urea Nitrogen 24 mg/dL (7-17); Calcium 8.7 mg/dL (8.4-10.2); Carbon Dioxide 33 mmol/L (22-30); Chloride 104 mmol/L (98-107); Estimated CRCL calculation 79 ml/min; Estimated Glomerular Filt Rate > 60; Glucose 115 mg/dL (65-110); Magnesium 2.2 mg/dL (1.6-2.3); Sodium 138 mmol/L (137-145)
[2024-01-06] MEDS: BUDESONIDE RESPULE NEB 0.5 MG/2 ML AMP INHALATION (06:53)
--- NOTE | 2024-01-06 08:13 | PM.IMPN ---
Progress Note: A&P Assessment and Plan (1) Cellulitis: Qualifiers: Site of cellulitis of extremity: lower extremity Qualified Code(s): L03.119 - Cellulitis of unspecified part of limb Code(s): L03.90 - Cellulitis, unspecified Status: Acute (2) CHF exacerbation: Qualifiers: Heart failure type: unspecified Qualified Code(s): I50.9 - Heart failure, unspecified Code(s): I50.9 - Heart failure, unspecified Status: Acute (3) Lymphedema: Code(s): I89.0 - Lymphedema, not elsewhere classified Status: Acute (4) Obstructive sleep apnea on CPAP: Code(s): G47.33 - Obstructive sleep apnea (adult) (pediatric) Status: Acute (5) Chronic atrial fibrillation: Code(s): I48.20 - Chronic atrial fibrillation, unspecified Status: Acute (6) Obesity: Code(s): E66.9 - Obesity, unspecified Status: Acute (7) Warfarin anticoagulation: Code(s): Z79.01 - [facility] (current) use of anticoagulants Status: Acute (8) A-fib: Code(s): I48.91 - Unspecified atrial fibrillation Status: Chronic (9) Pulmonary hypertension: Code(s): I27.20 - Pulmonary hypertension, unspecified Status: Chronic (10) Prediabetes: Code(s): R73.03 - Prediabetes Status: Acute (11) Noncompliance: Code(s): Z91.199 - Patient's noncompliance with other medical treatment and regimen due to unspecified reason Status: Acute Plan # cellulitis BLE # lymphedema - [facility] - ultrasound doppler to r/u DVT-completed 01/02/24- negative - will need vascular f/u as outpt -trend CBC, BMP - blood culture- neg -wound culture growing pseudomonas- S to cefepime - on cefepime -will continue - D/C vanco as wound culture with gram negative bacilli only -still with diffuse erythema, warmth, and pain- but margins improving - use copression boots when able # CHF # pulm edema - on tele - echo completed EF 60-65% - on statin - reluctant with regimen- h/o noncompliance with f/u and medical treatment -- received IV 40 mg lasix x 1 01/04 for SOB - will stop PO lasix and order 40 mg IV BID - - cardiology consult placed to optimize CHF and in setting of increased proBNP and SOB and to optimize CHF regimen - appreciate recommendations: Can continue IV diuresis for another 24-48 hours and check serial serum creatinine.? Replace electrolytes as needed. - daily weight order -strict I&O -Guerrero catheter accurate I and O -EKG 01/04- afib -BNP, trop trending - continue K po supplement trend Magnesium - monitor kidney function - will add 25 mg losartan po # possible pneumonia seen on x-ray # congested cough -already on cefepime for cellulitis. Added azithromycin -guaifenesin b.i.d. -p.r.n. oxygen to keep sats greater than 90% -incentive spirometry and Pep -sputum culture if able -nebs Q 6 hour scheduled #s/p aortic valve replacement # Afib # shelter use of anticoag - not compliant with labs draws at home- so prob had not been at goal - on metoprolol- will continue - tele monitoring - warfarin 5 mg (goal 2-3) - trend INR - fall/bleeding precaution - need close monitoring and f/u with cardiology upon discharge - consult was placed today for cardiology- appreciate recommendations # prediabetes - hgA1C 6.4 on 01/02/24 - on 10 mg empagliflozin PO -diabetic diet # ALISON - will continue Cpap # COPD - albuterol prn, symbicort - continue home regiment - monitor spo2 with vitals - IS - up to te chair # neuropathy - lyrica 75 mg BID - Acetaminophen prn FEN:? GI prophylaxis:? Not indicated DVT prophylaxis:? on warfarin Lines:? Peripheral IV Code Status:? Full code Dispo:?anticipated discharge back home if cleared with PT Time Spent With Patient Time with patient: 25 - 35 minutes Subjective Date/time seen: 01/06/24 08:13 Interval history: 01/02- EChO done- EF 60-65%. NO event overnight 01/03- working with pT today,
[2024-01-06] MEDS: PREGABALIN (*CRX) 75 MG CAPSULE PO ×2 (08:37→17:07)
[2024-01-06] MEDS: CALCIUM CARBONATE (OSCAL) 500 MG TABLET PO (08:37)
[2024-01-06] MEDS: FERROUS SULFATE 325 MG TABLET DR PO (08:38)
[2024-01-06] MEDS: guaiFENesin 12 HR 600 MG TABCR 1200 MG PO ×2 (08:38→21:55)
[2024-01-06] MEDS: CYANOCOBALAMIN 500 MCG TABLET PO (08:38)
[2024-01-06] MEDS: ATORVASTATIN 20 MG TABLET PO (08:38)
[2024-01-06] MEDS: POTASSIUM CHLORIDE 20 MEQ ER TABLET PO (08:38)
[2024-01-06] MEDS: CHOLECALCIFEROL 1,000 UNITS TABLET 2000 UNITS PO (08:38)
[2024-01-06] MEDS: EMPAGLIFLOZIN 10 MG TABLET PO (08:39)
[2024-01-06] MEDS: CEFEPIME 2 GM/NS 50 ML 2 GM/50 ML BAG IVPB (08:39)
[2024-01-06] MEDS: METOPROLOL SUCCINATE EXT REL 50 MG TABCR PO (08:40)
[2024-01-06 09:22] LABS: INR 2.6; Prothrombin Time 30.2 Seconds (11.1-14.7)
--- NOTE | 2024-01-06 09:25 | PM.CNCAR ---
Assessment and Plan Assessment and plan (1) Cellulitis: Qualifiers: Site of cellulitis of extremity: lower extremity Qualified Code(s): L03.119 - Cellulitis of unspecified part of limb Code(s): L03.90 - Cellulitis, unspecified Status: Acute Assessment and Plan: Continue antibiotic (2) Lymphedema: Code(s): I89.0 - Lymphedema, not elsewhere classified Status: Acute Assessment and Plan: Chronic lymphedema is often difficult to diurese. When able, would use compression boots. Can continue IV diuresis for another 24-48 hours and check serial serum creatinine. Replace electrolytes as needed. (3) Chronic atrial fibrillation: Code(s): I48.20 - Chronic atrial fibrillation, unspecified Status: Acute Assessment and Plan: Continue anticoagulation with warfarin. Rate is controlled with metoprolol. Discontinue telemetry (4) History of aortic valve replacement with bioprosthetic valve: Code(s): Z95.3 - Presence of xenogenic heart valve Status: Acute Assessment and Plan: Echocardiogram artery performed this admission with results as above History of Present Illness History of Present Illness Consult date/time: 01/06/24 09:25 Requesting physician: Jennie De León, ULTRASOUND MANAGER Consult reason: atrial fibrillation and congestive heart failure Reason For Visit: Cellulitis Narrative: Reason for consultation: CHF, AFib, aortic valve replacement Date of service 01/06/2024 Requesting provider: Jennie De León History: Patient is a 78-year-old female who has a history of aortic valve replacement, AFib who presented with worsening chronic lymphedema and cellulitis. Consultation requested given cardiac history. Patient denies any significant chest pain, unusual shortness of breath, syncope, presyncope, paroxysmal nocturnal dyspnea, orthopnea. She does have worsening lymphedema to the point of her legs weeping. She has now palpitations or bleeding problems. She was recently provided a course of Keflex for her right lower extremity from her PCP- which she completed. She had a similar hospitalization in the right leg last year Review of Systems Review of Systems: All systems reviewed & are unremarkable except as noted in HPI and below Constitutional: Constitutional: Denies body ache(s) Eyes: Eyes: Denies blurry vision ENT: Reports Normal hearing present Cardiovascular: Cardiovascular: Denies chest pain and Reports leg edema Respiratory: Respiratory: Denies chest congestion Gastrointestinal: Gastrointestinal: Denies abdominal pain Genitourinary: Genitourinary: Denies hematuria Musculoskeletal: Musculoskeletal: Denies back pain Integumentary/Breasts: Skin/Breast: Reports erythema, Reports rash and Reports wounds Neurologic: Denies Abnormal speech present Psychiatric: Psychiatric: Denies anxiety Endocrine: Endocrine: Denies excessive sweating Hematologic/Lymphatic: Hematologic/Lymphatic: Denies easy bleeding Allergic/Immunologic: Allergic/Immunologic: Denies GI upset with certain foods PMFSH Past Medical History Medical History JAQUELINE positive (2018) Aortic stenosis Arthritis Atrial fibrillation Diffuse idiopathic skeletal hyperostosis Lymphedema Nonspecific interstitial pneumonia Obstructive sleep apnea on CPAP Osteoarthritis Pulmonary hypertension Warfarin anticoagulation Surgical History Surgical History (Updated 01/06/24 @ 09:35 by Hilario Gifford MD) History of aortic valve replacement with bioprosthetic valve History of bilateral carpal tunnel release History of cardiac catheterization History of colonoscopy with polypectomy History of dilatation and curettage Family History Family History Mother Cerebrovascular accident, Onset Age: 89 Heart disease Father Patient's father
[2024-01-06] MEDS: FUROSEMIDE INJ 40 MG/4 ML VIAL IV PUSH (09:59)
--- NOTE | 2024-01-06 15:35 | PC.NURSE ---
On 01/06/24, the SAMPLE SUPERVISOR, , provided care and completed [employer] documentation on this patient. I have reviewed the SAMPLE SUPERVISOR's documentation and agree with the findings.
[2024-01-06] MEDS: FUROSEMIDE TABLET 20 MG, FUROSEMIDE TABLET 40 MG 60 MG PO (17:06)
[2024-01-06] MEDS: WARFARIN (*PBKC) 1 MG TABLET PO (17:07)
[2024-01-06] MEDS: WARFARIN (*PBKC) 4 MG TABLET PO (17:07)
[2024-01-07] VITALS (10 sets, daily range): BP systolic 110–139; BP diastolic 55–124; PULSE 53–86; RESP 14–22; TEMP 36.6–37.1; O2SAT 94–100
[2024-01-07] MEDS: ACETAMINOPHEN 500 MG TABLET PO (04:09)
[2024-01-07] MEDS: ATORVASTATIN 20 MG TABLET PO (07:49)
[2024-01-07] MEDS: CYANOCOBALAMIN 500 MCG TABLET PO (07:49)
[2024-01-07] MEDS: CALCIUM CARBONATE (OSCAL) 500 MG TABLET PO (07:50)
[2024-01-07] MEDS: FUROSEMIDE TABLET 20 MG, FUROSEMIDE TABLET 40 MG 60 MG PO ×2 (07:50→18:18)
[2024-01-07] MEDS: guaiFENesin 12 HR 600 MG TABCR 1200 MG PO ×2 (07:50→21:26)
[2024-01-07] MEDS: PREGABALIN (*CRX) 75 MG CAPSULE PO ×2 (07:50→18:19)
[2024-01-07] MEDS: LOSARTAN POTASSIUM 25 MG TABLET PO (07:50)
[2024-01-07] MEDS: CHOLECALCIFEROL 1,000 UNITS TABLET 2000 UNITS PO (07:50)
[2024-01-07] MEDS: POTASSIUM CHLORIDE 20 MEQ ER TABLET PO (07:51)
[2024-01-07] MEDS: ALBUTEROL SULFATE NEB 2.5 MG/3 ML INH INHALATION ×3 (07:53→19:32)
[2024-01-07] MEDS: BUDESONIDE RESPULE NEB 0.5 MG/2 ML AMP INHALATION (07:53)
[2024-01-07] MEDS: EMPAGLIFLOZIN 10 MG TABLET PO (08:03)
[2024-01-07] MEDS: METOPROLOL SUCCINATE EXT REL 50 MG TABCR PO (08:03)
[2024-01-07] MEDS: FERROUS SULFATE 325 MG TABLET DR PO (08:03)
[2024-01-07] MEDS: FUROSEMIDE 20 MG TABLET (08:04)
[2024-01-07] MEDS: traMADol HCL (*CRX) 50 MG TABLET PO ×2 (08:13→21:26)
--- NOTE | 2024-01-07 08:14 | P.PNIM_ITS ---
Progress Note: A&P Assessment and Plan (1) Cellulitis: Qualifiers: Site of cellulitis of extremity: lower extremity Qualified Code(s): L03.119 - Cellulitis of unspecified part of limb Code(s): L03.90 - Cellulitis, unspecified Status: Acute Assessment and Plan: - [place] - ultrasound doppler to r/u DVT-completed 01/02/24- negative - will need vascular f/u as outpt -trend CBC, BMP - blood culture- neg -wound culture growing pseudomonas- Started on cefepime, however patient refusing IV will start Levaquin per sensitivity results. -still with diffuse erythema, warmth, and pain- but margins improving - use compression boots when able (2) Lymphedema: Code(s): I89.0 - Lymphedema, not elsewhere classified Status: Acute Assessment and Plan: - [place] - ultrasound doppler to r/u DVT-completed 01/02/24- negative - will need vascular f/u as outpt -still with diffuse erythema, warmth, and pain- but margins improving - cardiology recommendations: use compression boots when able, IV diuresis for 24-28 hours. patient refusing IV will continue 60 mg lasix PO BID. (3) CHF exacerbation: Qualifiers: Heart failure type: unspecified Qualified Code(s): I50.9 - Heart failure, unspecified Code(s): I50.9 - Heart failure, unspecified Status: Acute Assessment and Plan: - evaluated by cardiology. recommends the use compression boots when able, IV diuresis for 24-28 hours. patient refusing IV will start IV lasix when midline placed - metoprolol, lasix - tele discontinued per cardiology - continue with 60 mg po lasix BID - continue 10 mg empagliflozin - echo completed EF 60-65% -will need f/u out cards outpt - on statin - if pt is agreeable- will optimize CHF management prior to discharge (4) Pneumonia: Code(s): J18.9 - Pneumonia, unspecified organism Status: Acute Assessment and Plan: - Chest XR: ?Cardiomegaly with pulmonary vascular congestion and prior aortic valve repair. Multiple opacities in the bilateral lower lung zones which could represent mild pulmonary edema, atelectasis or pneumonia. - previously on azithromycin, however due to patient refusing IV discussed antibiotics with ID pharmacy and getting dual coverage for pneumonia and cellulitis with Levaquin. -guaifenesin b.i.d. -p.r.n. oxygen to keep sats greater than 90% -incentive spirometry and Pep -sputum culture if able -nebs Q 6 hour scheduled (5) Warfarin anticoagulation: Code(s): Z79.01 - residential (current) use of anticoagulants Status: Acute Assessment and Plan: Patient is not compliant with labs draws at home. INR 3.2 on admission. Warfarin dose decreased to 5 mg (goal 2-3). INR is 2.6 today. - Patient started on Levaquin for pseudomonas coverage of patients cellulitis and dual pneumonia coverage. - Per pharmacy will need to monitor INR. Levaquin known to raise INR. (6) Chronic atrial fibrillation: Code(s): I48.20 - Chronic atrial fibrillation, unspecified Status: Acute Assessment and Plan: - s/p aortic valve replacement - not compliant with labs draws at home - on metoprolol- will continue - tele monitoring discontinued per cardiology - INR is 2.6 today- continue warfarin 5 mg (goal 2-3) - trend INR - fall/bleeding precaution - need close monitoring and f/u with card upon discharge - will need card f/u as have not been seen in a while (7) Prediabetes: Code(s): R73.03 - Prediabetes Status: Acute Assessment and Plan: - hgA1C 6.4 on 01/02/24 - on 10 mg empagliflozin PO
--- NOTE | 2024-01-07 09:30 | PM.PNCARD ---
Progress Note: A&P Assessment and Plan (1) Cellulitis: Qualifiers: Site of cellulitis of extremity: lower extremity Qualified Code(s): L03.119 - Cellulitis of unspecified part of limb Code(s): L03.90 - Cellulitis, unspecified Status: Acute Assessment and Plan: Continue antibiotic (2) Lymphedema: Code(s): I89.0 - Lymphedema, not elsewhere classified Status: Acute Assessment and Plan: Chronic lymphedema is often difficult to diurese. When able, would use compression boots. Electrolytes still pending today. Back on oral Lasix at 60 mg p.o. b.i.d.. (3) Chronic atrial fibrillation: Code(s): I48.20 - Chronic atrial fibrillation, unspecified Status: Acute Assessment and Plan: Continue anticoagulation with warfarin. Rate is controlled with metoprolol. (4) History of aortic valve replacement with bioprosthetic valve: Code(s): Z95.3 - Presence of xenogenic heart valve Status: Acute Assessment and Plan: Echocardiogram performed this admission with results as above Subjective Date/time seen: 01/07/24 09:30 Interval history: Patient is a 78-year-old female who has a history of aortic valve replacement, AFib who presented with worsening chronic lymphedema and cellulitis.? Consultation requested given cardiac history.? Patient denies any significant chest pain, unusual shortness of breath, syncope, presyncope, paroxysmal nocturnal dyspnea, orthopnea.? She does have worsening lymphedema to the point of her legs weeping.? Date of service 01/07/2024: Leg still have significant lymphedema in left leg is still red. No shortness of breath. No significant chest pain Review of Systems Review of Systems: All systems reviewed & are unremarkable except as noted in HPI and below Constitutional: Constitutional: Denies body ache(s) and Denies excessive sweating Eyes: Eyes: Denies blurry vision ENT: Reports Normal hearing present Cardiovascular: Cardiovascular: Denies chest pain and Reports leg edema Respiratory: Respiratory: Denies chest congestion Gastrointestinal: Gastrointestinal: Denies abdominal pain Genitourinary: Genitourinary: Denies hematuria Musculoskeletal: Musculoskeletal: Denies back pain Integumentary/Breasts: Skin/Breast: Reports erythema, Reports rash and Reports wounds Neurologic: Reports Normal hearing present and Denies Abnormal speech present Psychiatric: Psychiatric: Denies anxiety Endocrine: Endocrine: Denies excessive sweating Hematologic/Lymphatic: Hematologic/Lymphatic: Denies easy bleeding Allergic/Immunologic: Allergic/Immunologic: Denies GI upset with certain foods Exam Narrative: Awake alert oriented appears stated age Const: General: comfortable and no acute distress HENMT: Face/Nose/Sinus: Normal nares present Mouth: Yes moist mucous membranes Eyes: General: appearance normal, both eyes and all related structures Sclera: sclerae normal Neck: Neck: supple and no JVD Chest: Other: No reproducible chest wall pain to palpation Resp: Effort & Inspection: normal respiratory effort Auscultation: clear to auscultation bilaterally Cardio: Rate: regular rate Rhythm: abnormal rhythm irregularly irregular Heart sounds: Murmur heart sound present GI: Inspection: non-distended Urinary Catheter: Urinary Catheter: patent and draining Skin: General skin exam: erythema Other: Weeping noted bilateral lower extremities. Left leg is also red and both legs are tender to touch Neuro: Cranial nerves: Yes Normal hearing present Speech: normal speech and No Abnormal speech present Sensory Exam: normal sensation Extrem: General: edema Psych: Mental Status: mental status grossly normal Affect: normal affect Objective Data Vital Signs Vital Signs: Vital Signs - 24 hr 01/06/24 13:05 01/06/24 13:15 01/06/24 14:00 Temperature 36.5 C Pulse Rate 78 77 63 Respiratory R
--- NOTE | 2024-01-07 10:37 | ECG_ITS ---
SEE SCANNED COPY FOR CONFIRMED REPORT MTDD
[2024-01-07] MEDS: levoFLOXacin 750 MG TABLET PO (12:03)
[2024-01-07] MEDS: LIDOCAINE HCL 1% LOCAL INJ 2 ML AMPUL 5 ML INFILTRATE (13:45)
[2024-01-07] MEDS: WARFARIN (*PBKC) 1 MG TABLET PO (18:18)
[2024-01-07] MEDS: WARFARIN (*PBKC) 4 MG TABLET PO (18:18)
[2024-01-07 18:19] LABS: Basophils Absolute Auto 0.1 K/mm3 (0.0-0.1); Basophils Percent Auto 0.9 % (0.2-1.2); Eosinophils Absolute Auto 0.5 K/mm3 (0-0.3); Eosinophils Percent Auto 6.5 % (0-4.4); Hematocrit 34.9 % (37.0-47.0); Immature Granulocyte Absolute 0.04 K/mm3 (0.00-0.031); Immature Granulocyte Percent A 0.5 % (0-0.5); Lymphocytes Absolute Auto 0.74 K/mm3 (0.9-3.2); Lymphocytes Percent Auto 9.1 % (18.3-44.2); Mean Corpuscular HGB Conc 28.7 g/dl (32-36); Mean Corpuscular Hemoglobin 24.8 pg (26-34); Mean Corpuscular Volume 86.6 fl (80-100); Mean Platelet Volume 10.6 fl (7.4-10.4); Monocytes Absolute Auto 1.1 K/mm3 (0.1-0.6); Monocytes Percent Auto 12.9 % (2.6-8.5); Neutrophils Absolute Auto 5.7 K/mm3 (1.3-6.7); Neutrophils Percent Auto 70.1 % (45.5-73.1); Platelet Count Result 230 k/mm3 (150-375); Red Blood Count 4.03 M/mm3 (4.2-5.4); Red Cell Distribution Width 17.4 % (11.5-14.5); White Blood Count 8.1 K/mm3 (4.5-10.0)
[2024-01-07 18:39] LABS: INR 2.7; Prothrombin Time 30.4 Seconds (11.1-14.7)
[2024-01-07 18:54] LABS: Alanine Aminotransferase 12 U/L (6-35); Albumin Level 3.9 g/dL (3.5-5.1); Alkaline Phosphatase 70 U/L (38-126); Anion Gap 4 mmol/L (4-12); Aspartate Amino Transferase 17 U/L (14-36); Bilirubin,Total 0.6 mg/dL (0.2-1.3); Blood Urea Nitrogen 25 mg/dL (7-17); Calcium 9.5 mg/dL (8.4-10.2); Carbon Dioxide 36 mmol/L (22-30); Chloride 102 mmol/L (98-107); Estimated CRCL calculation 80 ml/min; Estimated Glomerular Filt Rate > 60; Glucose 111 mg/dL (65-110); Magnesium 2.2 mg/dL (1.6-2.3); Potassium 4.7 mmol/L (3.4-5.0); Sodium 142 mmol/L (137-145)
[2024-01-07 18:57] LABS: Anisocytosis 2+; Hypochromasia 1+; Platelet Estimate Adequate (Adequate); Schistocytes None Seen
[2024-01-07] MEDS: MELATONIN 3 MG TABLET PO (21:27)
[2024-01-07] MEDS: SALINE LOCK FLUSH 10 ML IV PUSH (22:00)
[2024-01-08] VITALS (13 sets, daily range): BP systolic 113–131; BP diastolic 46–60; PULSE 65–75; RESP 16–20; TEMP 36.1–37; O2SAT 93–95
[2024-01-08] MEDS: ALBUTEROL SULFATE NEB 2.5 MG/3 ML INH INHALATION ×4 (01:16→20:01)
[2024-01-08 04:24] LABS: Basophils Absolute Auto 0.1 K/mm3 (0.0-0.1); Eosinophils Absolute Auto 0.5 K/mm3 (0-0.3); Eosinophils Percent Auto 5.5 % (0-4.4); Hematocrit 32.3 % (37.0-47.0); Hemoglobin 9.5 g/dL (12.0-15.0); Immature Granulocyte Absolute 0.05 K/mm3 (0.00-0.031); Immature Granulocyte Percent A 0.6 % (0-0.5); Lymphocytes Percent Auto 9.8 % (18.3-44.2); Mean Corpuscular HGB Conc 29.4 g/dl (32-36); Mean Corpuscular Hemoglobin 24.8 pg (26-34); Mean Corpuscular Volume 84.3 fl (80-100); Mean Platelet Volume 10.9 fl (7.4-10.4); Monocytes Percent Auto 11.7 % (2.6-8.5); Neutrophils Absolute Auto 5.8 K/mm3 (1.3-6.7); Neutrophils Percent Auto 71.4 % (45.5-73.1); Platelet Count Result 220 k/mm3 (150-375); Red Blood Count 3.83 M/mm3 (4.2-5.4); Red Cell Distribution Width 17.3 % (11.5-14.5); White Blood Count 8.2 K/mm3 (4.5-10.0)
[2024-01-08 04:34] LABS: Alanine Aminotransferase 11 U/L (6-35); Albumin Level 3.6 g/dL (3.5-5.1); Alkaline Phosphatase 67 U/L (38-126); Anion Gap 5 mmol/L (4-12); Aspartate Amino Transferase 16 U/L (14-36); Bilirubin,Total 0.6 mg/dL (0.2-1.3); Blood Urea Nitrogen 25 mg/dL (7-17); Carbon Dioxide 31 mmol/L (22-30); Chloride 103 mmol/L (98-107); Estimated CRCL calculation 71 ml/min; Estimated Glomerular Filt Rate > 60; Glucose 108 mg/dL (65-110); Magnesium 2.1 mg/dL (1.6-2.3); Potassium 3.9 mmol/L (3.4-5.0); Sodium 139 mmol/L (137-145)
[2024-01-08 04:35] LABS: INR 2.6; Prothrombin Time 29.6 Seconds (11.1-14.7)
[2024-01-08 05:00] LABS: Hypochromasia 1+; Platelet Estimate Adequate (Adequate)
[2024-01-08] MEDS: SALINE LOCK FLUSH 10 ML IV PUSH ×3 (05:00→21:03)
[2024-01-08 05:01] LABS: Ovalocytes 1+; Schistocytes None Seen
[2024-01-08] MEDS: BUDESONIDE RESPULE NEB 0.5 MG/2 ML AMP INHALATION (07:55)
[2024-01-08] MEDS: guaiFENesin 12 HR 600 MG TABCR 1200 MG PO ×2 (08:44→21:02)
[2024-01-08] MEDS: CHOLECALCIFEROL 1,000 UNITS TABLET 2000 UNITS PO (08:44)
[2024-01-08] MEDS: FUROSEMIDE TABLET 20 MG, FUROSEMIDE TABLET 40 MG 60 MG PO ×2 (08:45→16:50)
[2024-01-08] MEDS: POTASSIUM CHLORIDE 20 MEQ ER TABLET PO (08:45)
[2024-01-08] MEDS: CALCIUM CARBONATE (OSCAL) 500 MG TABLET PO (08:45)
[2024-01-08] MEDS: FERROUS SULFATE 325 MG TABLET DR PO (08:45)
[2024-01-08] MEDS: CYANOCOBALAMIN 500 MCG TABLET PO (08:46)
[2024-01-08] MEDS: METOPROLOL SUCCINATE EXT REL 50 MG TABCR PO (08:46)
[2024-01-08] MEDS: LOSARTAN POTASSIUM 25 MG TABLET PO (08:49)
[2024-01-08] MEDS: EMPAGLIFLOZIN 10 MG TABLET PO (08:49)
[2024-01-08] MEDS: ATORVASTATIN 20 MG TABLET PO (08:49)
--- NOTE | 2024-01-08 08:55 | PM.IMPN ---
Progress Note: A&P Assessment and Plan (1) Cellulitis: Qualifiers: Site of cellulitis of extremity: lower extremity Qualified Code(s): L03.119 - Cellulitis of unspecified part of limb Code(s): L03.90 - Cellulitis, unspecified Status: Acute Assessment and Plan: - [place] - ultrasound doppler to r/u DVT-completed 01/02/24- negative - will need vascular f/u as outpt -trend CBC, BMP - blood culture- neg -wound culture growing pseudomonas- Started on cefepime, however patient refusing IV will start Levaquin per sensitivity results. -still with diffuse erythema, warmth, and pain- but margins improving - use compression boots when able (2) Lymphedema: Code(s): I89.0 - Lymphedema, not elsewhere classified Status: Acute Assessment and Plan: - [place] - ultrasound doppler to r/u DVT-completed 01/02/24- negative - will need vascular f/u as outpt -still with diffuse erythema, warmth, and pain- but margins improving - cardiology recommendations: use compression boots when able, IV diuresis for 24-28 hours. Patient refusing IV will continue 60 mg lasix PO BID. (3) CHF exacerbation: Qualifiers: Heart failure type: unspecified Qualified Code(s): I50.9 - Heart failure, unspecified Code(s): I50.9 - Heart failure, unspecified Status: Acute Assessment and Plan: - evaluated by cardiology. recommends the use compression boots when able, IV diuresis for 24-28 hours. Patient refusing IV will start IV lasix when midline placed - metoprolol, lasix - tele discontinued per cardiology - continue with 60 mg po lasix BID - continue 10 mg empagliflozin - echo completed EF 60-65% -will need f/u out cards outpt - on statin - if pt is agreeable- will optimize CHF management prior to discharge (4) Pneumonia: Code(s): J18.9 - Pneumonia, unspecified organism Status: Acute Assessment and Plan: - Chest XR: ?Cardiomegaly with pulmonary vascular congestion and prior aortic valve repair. Multiple opacities in the bilateral lower lung zones which could represent mild pulmonary edema, atelectasis or pneumonia. - previously on azithromycin, however due to patient refusing IV discussed antibiotics with ID pharmacy and getting dual coverage for pneumonia and cellulitis with Levaquin. -guaifenesin b.i.d. -p.r.n. oxygen to keep sats greater than 90% -incentive spirometry and Pep -sputum culture if able -nebs Q 6 hour scheduled (5) Warfarin anticoagulation: Code(s): Z79.01 - [facility] (current) use of anticoagulants Status: Acute Assessment and Plan: Patient is not compliant with labs draws at home. INR 3.2 on admission. Warfarin dose decreased to 5 mg (goal 2-3). INR is 2.6 today. - Patient started on Levaquin for pseudomonas coverage of patients cellulitis and dual pneumonia coverage. - Per pharmacy will need to monitor INR. Levaquin known to raise INR. (6) Chronic atrial fibrillation: Code(s): I48.20 - Chronic atrial fibrillation, unspecified Status: Acute Assessment and Plan: - s/p aortic valve replacement - not compliant with labs draws at home - on metoprolol- will continue - tele monitoring discontinued per cardiology - INR is 2.6 today- continue warfarin 5 mg (goal 2-3) - trend INR - fall/bleeding precaution - need close monitoring and f/u with card upon discharge - will need card f/u as have not been seen in a while (7) Prediabetes: Code(s): R73.03 - Prediabetes Status: Acute Assessment and Plan: - hgA1C 6.4 on 01/02/24 - on 10 mg empagliflozin PO - BS elevated in the hospital- will order cons. carb diet (8) Obstructive sleep apnea on CPAP: Code(s): G47.33 - Obstructive sleep apnea (adult) (pediatric) Status: Acute Assessment and Plan: Not CPAP compliant - CPAP ordered (9) Noncompliance: Code(s): Z91.199 - Patient's noncompliance with other medical treatment and regimen due to unspecifie
[2024-01-08] MEDS: PREGABALIN (*CRX) 75 MG CAPSULE PO ×2 (10:10→16:51)
[2024-01-08] MEDS: levoFLOXacin 750 MG TABLET PO (10:40)
[2024-01-08] MEDS: WARFARIN (*PBKC) 1 MG TABLET PO (16:50)
[2024-01-08] MEDS: WARFARIN (*PBKC) 4 MG TABLET PO (16:51)
[2024-01-08] MEDS: ACETAMINOPHEN 500 MG TABLET PO (20:58)
[2024-01-08] MEDS: traMADol HCL (*CRX) 50 MG TABLET PO (21:01)
[2024-01-08] MEDS: MELATONIN 3 MG TABLET PO (21:02)
[2024-01-09] VITALS (8 sets, daily range): BP systolic 109–112; BP diastolic 52–59; PULSE 56–79; RESP 12–18; TEMP 36.2–36.5; O2SAT 92–97
[2024-01-09] MEDS: ALBUTEROL SULFATE NEB 2.5 MG/3 ML INH INHALATION ×3 (03:01→14:53)
[2024-01-09] MEDS: BUDESONIDE RESPULE NEB 0.5 MG/2 ML AMP INHALATION (07:15)
[2024-01-09] MEDS: SALINE LOCK FLUSH 10 ML IV PUSH ×2 (07:29→16:40)
[2024-01-09 07:46] LABS: INR 2.3; Prothrombin Time 26.8 Seconds (11.1-14.7)
[2024-01-09 07:47] LABS: Basophils Absolute Auto 0.1 K/mm3 (0.0-0.1); Basophils Percent Auto 1.1 % (0.2-1.2); Eosinophils Absolute Auto 0.5 K/mm3 (0-0.3); Eosinophils Percent Auto 6.6 % (0-4.4); Hematocrit 34.4 % (37.0-47.0); Immature Granulocyte Absolute 0.03 K/mm3 (0.00-0.031); Immature Granulocyte Percent A 0.4 % (0-0.5); Lymphocytes Absolute Auto 0.84 K/mm3 (0.9-3.2); Mean Corpuscular HGB Conc 29.1 g/dl (32-36); Mean Corpuscular Hemoglobin 24.8 pg (26-34); Mean Corpuscular Volume 85.1 fl (80-100); Mean Platelet Volume 10.9 fl (7.4-10.4); Monocytes Absolute Auto 0.9 K/mm3 (0.1-0.6); Neutrophils Absolute Auto 4.7 K/mm3 (1.3-6.7); Neutrophils Percent Auto 66.9 % (45.5-73.1); Platelet Count Result 218 k/mm3 (150-375); Red Blood Count 4.04 M/mm3 (4.2-5.4); Red Cell Distribution Width 17.3 % (11.5-14.5)
[2024-01-09 08:03] LABS: Alanine Aminotransferase 11 U/L (6-35); Albumin Level 3.8 g/dL (3.5-5.1); Alkaline Phosphatase 72 U/L (38-126); Anion Gap 2 mmol/L (4-12); Aspartate Amino Transferase 16 U/L (14-36); Bilirubin,Total 0.6 mg/dL (0.2-1.3); Blood Urea Nitrogen 25 mg/dL (7-17); Calcium 9.2 mg/dL (8.4-10.2); Carbon Dioxide 36 mmol/L (22-30); Chloride 101 mmol/L (98-107); Estimated CRCL calculation 80 ml/min; Estimated Glomerular Filt Rate > 60; Glucose 118 mg/dL (65-110); Magnesium 2.2 mg/dL (1.6-2.3); Sodium 139 mmol/L (137-145)
[2024-01-09 09:12] LABS: Platelet Estimate Adequate (Adequate); Schistocytes None Seen
[2024-01-09 09:13] LABS: Anisocytosis 1+; Hypochromasia 1+; Ovalocytes 1+
[2024-01-09] MEDS: METOPROLOL SUCCINATE EXT REL 50 MG TABCR PO (09:18)
[2024-01-09] MEDS: CHOLECALCIFEROL 1,000 UNITS TABLET 2000 UNITS PO (09:18)
[2024-01-09] MEDS: EMPAGLIFLOZIN 10 MG TABLET PO (09:18)
[2024-01-09] MEDS: POTASSIUM CHLORIDE 20 MEQ ER TABLET PO (09:18)
[2024-01-09] MEDS: CYANOCOBALAMIN 500 MCG TABLET PO (09:18)
[2024-01-09] MEDS: guaiFENesin 12 HR 600 MG TABCR 1200 MG PO (09:18)
[2024-01-09] MEDS: LOSARTAN POTASSIUM 25 MG TABLET PO (09:18)
[2024-01-09] MEDS: PREGABALIN (*CRX) 75 MG CAPSULE PO ×2 (09:18→17:22)
[2024-01-09] MEDS: FUROSEMIDE TABLET 20 MG, FUROSEMIDE TABLET 40 MG 60 MG PO ×2 (09:18→17:22)
[2024-01-09] MEDS: FERROUS SULFATE 325 MG TABLET DR PO (09:19)
[2024-01-09] MEDS: CALCIUM CARBONATE (OSCAL) 500 MG TABLET PO (09:19)
[2024-01-09] MEDS: ATORVASTATIN 20 MG TABLET PO (09:19)
--- NOTE | 2024-01-09 11:25 | PCOTNOTE ---
Attempted to see Patient. Patient just finished speaking with care coordination. Patient seems very angry and frustrated and declined to participate at this time. Patient states she needs to make phone calls to her family, they have business to take care of and plans to make.
[2024-01-09] MEDS: levoFLOXacin 750 MG TABLET PO (12:05)
--- NOTE | 2024-01-09 14:08 | PM.DS ---
DS: Admitting Diagnosis Discharge Date 01/09/24 Admitting Diagnosis Lower extremity cellulitis DS: Discharge Diagnosis Discharge Diagnosis (1) Cellulitis: Qualifiers: Site of cellulitis of extremity: lower extremity Qualified Code(s): L03.119 - Cellulitis of unspecified part of limb Code(s): L03.90 - Cellulitis, unspecified Status: Acute (2) Lymphedema: Code(s): I89.0 - Lymphedema, not elsewhere classified Status: Acute (3) CHF exacerbation: Qualifiers: Heart failure type: unspecified Qualified Code(s): I50.9 - Heart failure, unspecified Code(s): I50.9 - Heart failure, unspecified Status: Acute (4) Pneumonia: Code(s): J18.9 - Pneumonia, unspecified organism Status: Acute (5) Warfarin anticoagulation: 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 Status: Acute (6) Chronic atrial fibrillation: Code(s): I48.20 - Chronic atrial fibrillation, unspecified Status: Acute (7) Prediabetes: Code(s): R73.03 - Prediabetes Status: Acute (8) Obstructive sleep apnea on CPAP: Code(s): G47.33 - Obstructive sleep apnea (adult) (pediatric) Status: Acute (9) Noncompliance: Code(s): Z91.199 - Patient's noncompliance with other medical treatment and regimen due to unspecified reason Status: Acute (10) COPD (chronic obstructive pulmonary disease): Code(s): J44.9 - Chronic obstructive pulmonary disease, unspecified Status: Acute (11) Neuropathy: Code(s): G62.9 - Polyneuropathy, unspecified Status: Acute DS: Summary Hospital Course Hospital Course: This is a 77-year-old female with chronic lymphedema, atrial fibrillation on chronic anticoagulation, pulmonary hypertension, iron deficiency anemia, and other comorbidities who presented to the emergency department via EMS from home for evaluation of pain and redness in the right leg. She was prescribed doxycycline for possible cellulitis. She missed at least 3 doses of the antibiotic. The home health came in to change her wraps in her legs which they do 3 times a week, and it was noted that the leg was more swollen, red, and was weeping. She was then encouraged to come in for evaluation. She was afebrile on arrival to the ED with stable vital signs. Chest x-ray showed pulmonary vascular congestion as well as multiple opacities in the bilateral lower lungs representing pulmonary edema, atelectasis or pneumonia. She was started on cefazolin for right lower extremity cellulitis. lower extremity Doppler ultrasound negative for DVT. Recommend patient seeing vascular as an outpatient. Patient's blood cultures have remained negative. Wound culture grew Pseudomonas and patient was started on cefepime. then transitioned over to Levaquin. Levaquin is able to cover for both pneumonia and cellulitis. Patient's swelling improved during hospitalization as well as the redness. Patient did have a midline placed due to being hard stick and requiring IV antibiotics. Patient refused multiple IV medications including Diuretics. she was not happy about having midline placed. PT and OT worked with the patient. Patient refused to go to SNF and is determined to return home. Will discharge patient on antibiotic therapy. Time Spent with Patient Time attestation: Total time spent providing and/or coordinating discharge services: Exam Narrative: GENERAL: Comfortable, no acute distress, morbid obesity HENMT: moist mucous membranes EYES: EOM intact b/l NECK: no lymphadenopathy RESPIRATORY: clear to auscultation, no increased respiratory effort CARDIO: Regular rate and rhythm GI: soft, nontender, bowel sounds present SKIN/EXTREMITIES:Bilateral lower extremity lymphedema, erythema improving and receiving beyond marked borders NEURO: PROM intact, answers questions appropriately, A&O x4 DS: Data Data Completed and Pending Labs on day o
--- NOTE | 2024-01-09 14:20 | PCOTNOTE ---
Attempted to see Patient this afternoon. Patient refused therapy services, verbalized she will be going home tonight and doesn't need anything else from us .
[2024-01-09] MEDS: WARFARIN (*PBKC) 4 MG TABLET PO (17:22)
[2024-01-09] MEDS: WARFARIN (*PBKC) 1 MG TABLET PO (17:22)
== END 2024-01-09 20:18 | disposition home health service (06) | DRG 602 ==
LOC: ANHED 01-02 00:17 → ANH3MEDSUR 01-02 04:48
PROVIDERS: Nurse Practitioner; Nurse Practitioner Acute Care; Admitting Provider Internal Medicine; Emergency Provider Physician Assistant; PCP Registered Nurse; Visit Provider Internal Medicine
DX: L03.115 Cellulitis of right lower limb (principal); J18.9 Pneumonia, unspecified organism; I48.20 Chronic atrial fibrillation, unspecified; J44.0 Chronic obstructive pulmonary disease with (acute) lower respiratory infection; Z68.43 Body mass index [BMI] 50.0-59.9, adult; L03.116 Cellulitis of left lower limb; I89.0 Lymphedema, not elsewhere classified; B96.5 Pseudomonas (aeruginosa) (mallei) (pseudomallei) as the cause of diseases classified elsewhere; I50.9 Heart failure, unspecified; G62.9 Polyneuropathy, unspecified; R73.03 Prediabetes; G47.33 Obstructive sleep apnea (adult) (pediatric); I35.0 Nonrheumatic aortic (valve) stenosis; D50.9 Iron deficiency anemia, unspecified; I25.10 Atherosclerotic heart disease of native coronary artery without angina pectoris; M19.90 Unspecified osteoarthritis, unspecified site; E66.9 Obesity, unspecified; Z79.01 Long term (current) use of anticoagulants; Z91.199 Patient's noncompliance with other medical treatment and regimen due to unspecified reason; Z95.2 Presence of prosthetic heart valve
CPT/HCPCS: 36415; 36569; 71045; 73590; 73620; 80048; 80053; 80202; 82565; 83036; 83605; 83735; 83880; 84484; 85025; 85027; 85610; 85652; 85730; 86140; 87040; 87070; 87077; 87186; 87205; 87641; 93005; 93306; 93971; 94640; 94667; 96365; 96366; 96375; 96376; 97110; 97116; 97161; 97166; 97530; 97535; 99285; A9270; G0378; J0456; J0690; J0692; J1940; J2270; J3370

== ENCOUNTER 2024-01-21 11:51 | Outpatient (NON) | payer MEDICARE, SELFPAY ==
[2024-01-21 12:17] LABS: INR 3.8; Prothrombin Time 40.8 Seconds (11.1-14.7)
== END 2024-01-21 11:52 | disposition home or self-care (01) ==
LOC: HOME HLTH 11:54
PROVIDERS: PCP Registered Nurse; Visit Provider Registered Nurse
DX: Z79.01 Long term (current) use of anticoagulants (principal)
CPT/HCPCS: 85610

== ENCOUNTER 2024-01-31 12:23 | Outpatient (NON) | payer MEDICARE, SELFPAY ==
[2024-01-31 13:53] LABS: INR 2.3; Prothrombin Time 26.6 Seconds (11.1-14.7)
== END 2024-01-31 12:24 | disposition home or self-care (01) ==
PROVIDERS: PCP Registered Nurse; Visit Provider Registered Nurse
DX: I50.9 Heart failure, unspecified (principal); Z79.01 Long term (current) use of anticoagulants
CPT/HCPCS: 85610